=== PATIENT | female | born 1960 | race Caucasian/White ===

== ENCOUNTER 2022-03-15 09:55 | Outpatient (CLI) | payer BC, SELFPAY ==
--- NOTE | ~2022-03-15 | CT_ITS ---
EXAMINATION: CT lung screening DATE: 03/15/2022 10:20 INDICATION: screen TECHNIQUE: Computed tomography (CT) of the chest was performed without intravenous contrast. Addition al 3D reconstructions utilizing coronal maximum intensity projection (MIP) were performed. Automated exposure control and iterative reconstruction technique were employed. The dose-length product was 17 1.83 mGy-cm. COMPARISON: 03/23/2015 FINDINGS: Mild emphysema. New 9 mm nodule with lobular margins in the right lower lobe. 1.6 x 1.4 x 1.1 cm spic ulated nodule in the anterobasilar segment of the left lower lobe. Small calcified nodules in the rig ht upper lobe and calcified left hilar lymph nodes consistent with old granulomatous disease. No pneu monia, pulmonary edema or pleural effusion. Heart size is normal. Atherosclerotic coronary artery mary cific lesions and aortic valve calcification. No pericardial effusion. Thoracic aorta is normal calib er with no dissection. No pathologically enlarged thoracic lymphadenopathy. Small lucent lesion with thickened central vertical trabecula consistent with a hemangioma at T3. No other suspicious lytic or blastic bone lesions. IMPRESSION: 1. Lung-RADS category 4X: (Very suspicious, >15% chance of malignancy). PET-CT and/or tissue sampling depending on probably of malignancy and comorbidities. Although both nodules in the left and right l ower lobes are concerning for malignancy, the nodule more concerning for malignancy left lower lobe b ased upon both larger size and specific morphology is situated along side the bronchi and pulmonary v asculature and would not be a candidate for percutaneous CT-guided biopsy and would be best evaluated utilizing endobronchial ultrasound-guided biopsy (EBUS). Reviewed, dictated and finalized at location A. CATESSEN DEPARTMENT MANAGER IMPRESSION: 1. Lung-RADS category 4X: (Very suspicious, >15% chance of malignancy). PET-CT and/or tissue sampling depending on probably of malignancy and comorbidities. A lthough both nodules in the left and right lower lobes are concerning for malig marek, the nodule more concerning for malignancy left lower lobe based upon bot h larger size and specific morphology is situated along side the bronchi and pu lmonary vasculature and would not be a candidate for percutaneous CT-guided bio psy and would be best evaluated utilizing endobronchial ultrasound-guided biops y (EBUS).
== END 2022-03-15 09:56 | disposition home or self-care (01) ==
PROVIDERS: PCP Family Medicine; Visit Provider Physician Assistant
DX: Z12.2 Encounter for screening for malignant neoplasm of respiratory organs (principal); F17.210 Nicotine dependence, cigarettes, uncomplicated
CPT/HCPCS: 71271

== ENCOUNTER 2022-04-11 09:01 | Outpatient (CLI) | payer BC, SELFPAY ==
--- NOTE | ~2022-04-11 | PE_ITS ---
EXAMINATION: PET skull to mid thigh DATE: 04/11/2022 11:14 INDICATION: Solitary pulmonary nodule TECHNIQUE: Blood glucose level was 98 mg/dL. 9.596 mCi of 18-fluorodeoxyglucose (18-FDG) was administ ered i.v. Low dose computed tomography (CT) images were acquired from the base of the brain to the pr oximal thighs for attenuation correction and anatomic localization. Positron emission tomography (PET ) images were acquired in the same distribution beginning 49 minutes after injection. The dose-length product (DLP) was 813.84 mGy-cm. COMPARISON: CT, 03/15/2022;, 01/13/2021, 11/17/2010 FINDINGS: Head/neck: No abnormal FDG uptake is identified. Symmetric FDG uptake in the optic nerves, extraocula r muscles, oral cavity, and vocal cords without suspicious CT correlate is likely physiologic. Chest: Respiratory motion artifact slightly limits measurement of nodule size. There is a 9 mm nodule of the right lower lobe with abnormal FDG uptake and SUV max of six. There is a 1.5 cm nodule of the left lower lobe with abnormal FDG uptake and SUV max of 3.5. No additional pulmonary nodules are kip ntified. There is mild dependent atelectasis. The heart size is normal. No pathologically enlarged th oracic lymph nodes are identified no pleural effusion or pneumothorax. There is calcified atheroscler osis. Abdomen/pelvis/proximal thighs: Physiologic FDG activity is present in the bowel and urinary tract. N o abnormal FDG uptake is identified. The gallbladder is surgically absent. There is mild enlargement of the common bile duct and central intrahepatic ducts which is likely due to post cholecystectomy st ate. The liver, spleen, pancreas, and adrenal glands are normal. The kidneys are unremarkable. There is calcified atherosclerosis of the aorta and many of the other arteries. No pathologically enlarged abdominal or pelvic lymph nodes are identified. No free intraperitoneal gas or evidence of bowel obst ruction. Musculoskeletal: No abnormal FDG uptake is identified. There is moderate cervical and thoracic spondy losis and mild lumbar spondylosis. IMPRESSION: 1. Bilateral lower lobe nodule suspicious for primary bronchogenic carcinoma. Reviewed, dictated and finalized at location L. STRIAL DESIGN ENGINEER
[2022-04-11 09:47] LABS: Glucose Point of Care 98 mg/dl (65-105)
== END 2022-04-11 09:02 | disposition home or self-care (01) ==
PROVIDERS: PCP Family Medicine; Visit Provider Physician Assistant
DX: R91.1 Solitary pulmonary nodule (principal)
CPT/HCPCS: 78815; A9552

== ENCOUNTER 2022-04-11 16:36 | Outpatient (CLI) | payer BC, SELFPAY ==
--- NOTE | ~2022-04-11 | MM_ITS ---
EXAMINATION: MM screening cece BI w sonja HISTORY: Screening mammogram TECHNIQUE: Craniocaudal and mediolateral oblique 3-D tomosynthesis images were obtained and synthetic 2-D images were generated. CAD analysis was submitted and interpreted. COMPARISON: 02/20/2013 bilateral screening mammogram BREAST PARENCHYMAL COMPOSITION: There are scattered areas of fibroglandular density. FINDINGS: Biopsy marker in the upper outer right breast; history of prior benign right breast biopsy. Occasional bilateral benign calcifications. There is no evidence of suspicious mass, calcification, or architectural distortion to suggest malignancy in either breast. There has been no suspicious inte rval change. IMPRESSION: 1. No mammographic evidence of malignancy. 2. Recommend routine screening mammography in one year. BI-RADS Category 1: Negative Reviewed, dictated and finalized at location A. ERWARE BUFFING MACHINE OPERATOR
== END 2022-04-11 16:37 | disposition home or self-care (01) ==
PROVIDERS: PCP Family Medicine; Visit Provider Family Medicine
DX: Z12.31 Encounter for screening mammogram for malignant neoplasm of breast (principal)
CPT/HCPCS: 77063; 77067

== ENCOUNTER 2022-05-11 14:47 | Outpatient (CLI) | payer BC, SELFPAY ==
--- NOTE | ~2022-05-11 | DEXA_ITS ---
Bone Density Report Name: CECY SCHAEFER Age: 62 Sex: Female Ethnicity: White Date of : 1960 Indication: postmenopausal; screening for osteoporosis; height loss; prior fracture; Referring Provider: DOTTIE MANJARREZ Study: Bone densitometry was performed. Exam Date: May 11, 2022 Accession number: [id number] Bone Density: Region BMD T-score Z-score Classification AP Spine(L1-L4) 1.018 -0.3 1.3 Normal Femoral Neck (Left) 0.754 -0.9 0.5 Normal Total Hip (Left) 1.001 0.5 1.6 Normal World Health Organization criteria for BMD impression classify patients as: Normal (T-score at or above -1.0), Osteopenia (T-score between -1.0 and -2.5), or Osteoporosis (T-score at or below -2.5). 10-year Fracture Risk: FRAX not reported because: All T-scores for Spine Total, Hip Total, Femoral Neck at or above -1.0 Prior hip or vertebral fracture Clinical Information Provided by Patient: Have had a previous hip or vertebral fracture Has had a low trauma fracture Smokes Patient maximum height was 67 Menopause Age: 53 No regular weight bearing exercise Drinks caffeinated beverages Onset of menses at age 15 Number of children 1 Impression: The patient has normal bone mass. The patient has risk factors, including: smoking, previous fracture. Discussion: INCREASED RISK OF FRACTURE DUE TO HISTORY OF FRACTURE. The patient's previous fracture puts the patient at high risk of a future fracture. In untreated patients, the risk of osteoporotic fracture increases approximately two-fold for each 1.0 SD decrease in T-score. Low bone density is not the only risk factor for fracture; also consider factors such as patient's age, frailty or poor health, risk of falling, risk of injury, previous osteoporotic fracture, family history of osteoporosis, cigarette smoking, low body weight, etc. Not everyone with a low trauma fracture has osteoporosis; osteomalacia and other metabolic bone disorders should also be considered. Patients who have osteoporosis should be evaluated for specific diseases and conditions (secondary causes) that may cause or contribute to bone loss and fracture risk. National Osteoporosis Foundation (NOF) recommends pharmacologic intervention for patients with a prior hip or vertebral fracture regardless of BMD T-score. The patient should follow a healthful lifestyle (good nutrition with adequate calcium and vitamin D, and appropriate weight-bearing exercise). Follow-Up: Consider a repeat BMD and Vertebral Fracture Assessment (VFA) exam in 2 years or sooner if medically necessary, to reassess this patient's status. Reported by: [facility] on 05/11/2022 3:14:00 PM. Reviewed, dictated and finalized at location AGenesis ROBERTS
== END 2022-05-11 14:48 | disposition home or self-care (01) ==
PROVIDERS: PCP Family Medicine; Visit Provider Family Medicine
DX: Z78.0 Asymptomatic menopausal state (principal)
CPT/HCPCS: 77080

== ENCOUNTER 2022-05-29 14:59 | Outpatient (CLI) | payer BC, SELFPAY ==
[2022-05-29 15:53] LABS: Hemoglobin 9.6 g/dL (12.0-15.0); Mean Corpuscular HGB Conc 33.1 g/dl (32-36); Mean Corpuscular Hemoglobin 31.4 pg (26-34); Mean Corpuscular Volume 94.8 fl (80-100); Mean Platelet Volume 8.5 fl (7.4-10.4); Platelet Count Result 235 k/mm3 (150-375); Red Blood Count 3.06 M/mm3 (4.2-5.4); Red Cell Distribution Width 13.2 % (11.5-14.5)
[2022-05-29 16:09] LABS: Potassium 3.6 mmol/L (3.4-5.0)
[2022-05-29 16:16] LABS: Alanine Aminotransferase 22 U/L (6-35); Albumin Level 4.4 g/dL (3.5-5.1); Alkaline Phosphatase 135 U/L (38-126); Anion Gap 11 mmol/L (8-16); Aspartate Amino Transferase 28 U/L (14-36); Bilirubin,Total 0.5 mg/dL (0.2-1.3); Blood Urea Nitrogen 23 mg/dL (7-17); Calcium 9.2 mg/dL (8.4-10.2); Carbon Dioxide 26 mmol/L (22-30); Chloride 106 mmol/L (98-107); Estimated Glomerular Filt Rate 29; Glucose 99 mg/dL (65-110); Sodium 143 mmol/L (137-145)
== END 2022-05-29 15:00 | disposition home or self-care (01) ==
PROVIDERS: PCP Family Medicine; Visit Provider Nurse Practitioner Family
DX: K75.81 Nonalcoholic steatohepatitis (NASH) (principal)
CPT/HCPCS: 36415; 80053; 85027

== ENCOUNTER 2022-11-14 14:29 | Outpatient (CLI) | payer BC, SELFPAY ==
--- NOTE | ~2022-11-14 | XR_ITS ---
XR knee RT 3V 11/14/2022 14:58 INDICATION: Right knee pain PROCEDURE: 3 views right knee COMPARISON: No prior studies for comparison. FINDINGS: Fracture, dislocation or subluxation is not identified. No significant joint effusion. The soft tissues appear within normal limits. No foreign bodies are identified. IMPRESSION: 1: NO ACUTE BONE OR JOINT ABNORMALITY IDENTIFIED. Reviewed, dictated and finalized at location L.
[2022-11-14 15:21] LABS: Hematocrit 32.3 % (37.0-47.0); Hemoglobin 10.5 g/dL (12.0-15.0); Mean Corpuscular HGB Conc 32.5 g/dl (32-36); Mean Corpuscular Hemoglobin 32.2 pg (26-34); Mean Corpuscular Volume 99.1 fl (80-100); Mean Platelet Volume 8.8 fl (7.4-10.4); Platelet Count Result 229 k/mm3 (150-375); Red Blood Count 3.26 M/mm3 (4.2-5.4); Red Cell Distribution Width 13.4 % (11.5-14.5); White Blood Count 7.5 K/mm3 (4.5-10.0)
[2022-11-14 15:29] LABS: Alanine Aminotransferase 38 U/L (6-35); Albumin Level 4.6 g/dL (3.5-5.1); Alkaline Phosphatase 113 U/L (38-126); Anion Gap 10 mmol/L (8-16); Aspartate Amino Transferase 46 U/L (14-36); Bilirubin,Total 0.5 mg/dL (0.2-1.3); Blood Urea Nitrogen 20 mg/dL (7-17); Calcium 9.6 mg/dL (8.4-10.2); Carbon Dioxide 23 mmol/L (22-30); Chloride 106 mmol/L (98-107); Estimated Glomerular Filt Rate 56; Glucose 98 mg/dL (65-110); Potassium 4.7 mmol/L (3.4-5.0); Sodium 139 mmol/L (137-145)
== END 2022-11-14 14:30 | disposition home or self-care (01) ==
LOC: ANHLAB 14:30
PROVIDERS: PCP Family Medicine; Visit Provider Nurse Practitioner Family
DX: K75.81 Nonalcoholic steatohepatitis (NASH) (principal); M25.561 Pain in right knee
CPT/HCPCS: 36415; 73562; 80053; 85027

== ENCOUNTER 2023-01-01 12:48 | Outpatient (CLI) | payer BC, SELFPAY | END 2023-01-01 12:49 | disposition home or self-care (01) | LOC: ANHAUDASC 12:50 | PROVIDERS: PCP Family Medicine; Visit Provider Otolaryngology | DX: H90.3 Sensorineural hearing loss, bilateral (principal) | CPT/HCPCS: 92557; 92567 ==

== ENCOUNTER 2023-02-09 10:00 | Outpatient (RCR) | payer BC, SELFPAY | END 2023-04-08 23:59 | disposition home or self-care (01) | LOC: ANHAUDASC 10:00 | PROVIDERS: PCP Family Medicine; Visit Provider Family Medicine | DX: Z46.1 Encounter for fitting and adjustment of hearing aid (principal) | CPT/HCPCS: V5261 ==

== ENCOUNTER 2023-02-24 16:04 | Observation (INO) | payer BC, SELFPAY ==
[2023-02-24] VITALS (26 sets, daily range): BP systolic 88–116; BP diastolic 47–94; PULSE 78–93; RESP 14–22; TEMP 35.7–36.8; O2SAT 93–99; BMI 32.0
[2023-02-24 16:55] LABS: Basophils Percent Auto 0.4 % (0.2-1.2); Eosinophils Percent Auto 0.4 % (0-4.4); Hematocrit 32.9 % (37.0-47.0); Hemoglobin 10.6 g/dL (12.0-15.0); Immature Granulocyte Absolute 0.06 K/mm3 (0.00-0.031); Immature Granulocyte Percent A 0.6 % (0-0.5); Lymphocytes Absolute Auto 1.59 K/mm3 (0.9-3.2); Lymphocytes Percent Auto 15.6 % (18.3-44.2); Mean Corpuscular HGB Conc 32.2 g/dl (32-36); Mean Corpuscular Hemoglobin 31.6 pg (26-34); Mean Corpuscular Volume 98.2 fl (80-100); Monocytes Absolute Auto 0.7 K/mm3 (0.1-0.6); Monocytes Percent Auto 6.7 % (2.6-8.5); Neutrophils Absolute Auto 7.8 K/mm3 (1.3-6.7); Neutrophils Percent Auto 76.3 % (45.5-73.1); Platelet Count Result 220 k/mm3 (150-375); Red Blood Count 3.35 M/mm3 (4.2-5.4); Red Cell Distribution Width 14.1 % (11.5-14.5); White Blood Count 10.2 K/mm3 (4.5-10.0)
[2023-02-24 17:14] LABS: Alanine Aminotransferase 29 U/L (6-35); Albumin Level 4.2 g/dL (3.5-5.1); Alkaline Phosphatase 108 U/L (38-126); Anion Gap 15 mmol/L (8-16); Aspartate Amino Transferase 26 U/L (14-36); Bilirubin,Total 0.9 mg/dL (0.2-1.3); Blood Urea Nitrogen 26 mg/dL (7-17); Calcium 9.7 mg/dL (8.4-10.2); Carbon Dioxide 19 mmol/L (22-30); Chloride 104 mmol/L (98-107); Estimated CRCL calculation 27 ml/min; Estimated Glomerular Filt Rate 23; Glucose 156 mg/dL (65-110); Potassium 3.7 mmol/L (3.4-5.0); Sodium 138 mmol/L (137-145)
[2023-02-24 17:18] LABS: Appearance Urine Turbid (Clear); Bacteria Urine 4+ /hpf; Bilirubin Urine Negative (Negative); Blood Urine 3+ (Negative); Color Urine Dark Yellow (Yellow); Glucose Urine UA Trace mg/dL (Negative); Ketones Urine Trace mg/dL (Negative); Leukocyte Esterase Ur 3+ LEU/UL (Negative); Need Manual Microscopic Reviewed; Nitrate Urine Negative (Negative); Non Pathogenic Casts >20; Protein Urine 4+ mg/dL (Negative); RBC Urine 51-100 /hpf (0-2); Specific Grav Ur 1.021 (1.001-1.035); Squamous Epithelial Cell Urine Many /hpf (Few); WBC Urine >100 /hpf; pH Urine 5.5 (5.0-9.0)
[2023-02-24 17:25] LABS: Troponin I < 0.012 ng/mL (0.000-0.034)
[2023-02-24 17:33] LABS: Add Urine Microscopic? YES
--- NOTE | 2023-02-24 18:24 | PC.NURSE ---
Patient able to ambulate to the restroom with steady gate
--- NOTE | 2023-02-24 20:14 | ED.DIZZY ---
HPI - Dizziness General Chief Complaint: Dizziness Stated Complaint: dizzy Time Seen by Provider: 02/24/23 20:14 Source: patient Related Data Home Medications Medication Instructions Recorded Confirmed ascorbic acid (vitamin C) 1,000 mg 1 g PO DAILY 01/19/22 01/30/23 capsule cholecalciferol (vitamin D3) 25 25 mcg PO DAILY 01/19/22 01/30/23 mcg (1,000 unit) capsule cyclosporine 0.05 % eye drops in a 1 drp EACH EYE Q12H 01/19/22 01/30/23 dropperette (Restasis) lancets (Accu-Chek Fastclix Lancet 01/19/22 01/30/23 Drum) omega 9-jxa-nmx-fish oil 1,000 mg 1 cap PO DAILY 01/19/22 01/30/23 (120 mg-180 mg) capsule (Fish Oil) vitamin B complex (B 1 tablet PO DAILY 01/19/22 01/30/23 Complex-Vitamin B12 tablet) prednisone 10 mg tablet 10 mg PO DIRECTED 01/30/23 01/30/23 empagliflozin 10 mg tablet 10 mg PO DAILY 02/01/23 02/01/23 (Jardiance) Allergies Allergy/AdvReac Type Severity Reaction Status Date / Time penicillin G Allergy Mild rash Verified 02/24/23 20:48 PMFSH Past Medical History Medical History Acute cystitis without hematuria Aftercare following surgery Anemia Chronic obstructive pulmonary disease, unspecified Colon polyps Complete rotator cuff tear (01/14/15) Diabetes mellitus with neuropathy Dietary counseling and surveillance (03/01/16) Essential (primary) hypertension Family hx of colon cancer GERD (gastroesophageal reflux disease) Hereditary and idiopathic neuropathy, unspecified Hyperlipidemia Hyperlipidemia, unspecified HERNANDEZ (nonalcoholic steatohepatitis) Nicotine abuse Nicotine dependence, unspecified, uncomplicated SARAH (obstructive sleep apnea) Type 2 diabetes mellitus without complications Vitamin D deficiency, unspecified Surgical History Surgical History History of lung biopsy History of rotator cuff surgery Hx of appendectomy Hx of cholecystectomy Family History Family History Grandparent Carcinoma of colon, Onset Age: 85 Family history of lung cancer, Onset Age: 40 Father Malignant neoplasm of prostate, Onset Age: 76 Acute myocardial infarction, Onset Age: 76 Family history of chronic obstructive pulmonary disease Patient's father is Sibling Hypertension Mother Family history of malignant neoplasm of brain, Onset Age: 72 Social History Social History Social History: Single - Patient stopped smoking 6 months ago, she currently vapes. Smoking packs per day: 1 Smoking cigarettes per day: 20.0 Years smoked: 47 Smoking pack-years: 47.00 Smoking status: Current every day smoker Tobacco type: e-cigarettes/vaping Second hand tobacco smoke exposure: Yes Additional smoking assessment comments: Pt smokes vapes but smokes cigarettes one or two a month. Alcohol intake: never Substance use: never Substance use type: does not use Lack of Transportation: No Lack of Food: Never True Current Housing: I Have Housing Concerned About Future Housing: No Difficulty Paying Gas/Electric Bills: No Difficulty Paying for Meds: No Currently Unemployed: No Education: High School Diploma/GED Difficulty w/ Childcare or Family Care: No Living arrangements: alone Occupation/Education: occupation Additional occupation/education comments: [employer] Gender identity (if verbalized by the patient): Female Sexual Orientation (if Verbalized by the Patient): Straight or Heterosexual Course Vital Signs Vital signs: Vital Signs Temperature 36.8 C 02/24/23 16:15 Pulse Rate 93 02/24/23 16:15 Respiratory Rate 20 02/24/23 16:15 Blood Pressure 88/52 L 02/24/23 16:15 Pulse Oximetry 97 02/24/23 16:15 Oxygen Delivery Room Air 02/24/23 16:15 Temperature 36.8 C 02/24/23 16:15 Pulse Ra
[2023-02-24] MEDS: SODIUM CHLORIDE 0.9% IV 1,000 ML 999 ML IV CONT ×2 (20:47→23:35)
--- NOTE | 2023-02-24 21:39 | PM.IMHP ---
H&P: HPI History of Present Illness Date/Time: 02/24/23 21:39 Chief Complaint: DIZZINESS Narrative: THIS IS A 63-YEAR-OLD FEMALE WITH PAST MEDICAL HISTORY SIGNIFICANT FOR COPD/EMPHYSEMA, TYPE DIABETES MELLITUS, OBESITY, GERD. PATIENT PRESENTS TO THE EMERGENCY ROOM DUE TO DIZZINESS, LIGHTHEADEDNESS, HAS HAD DIARRHEA FOR THE LAST WEEK OR SO, HAS BEEN FEELING DIZZY BUT TODAY WAS THE WORST. DENIES ANY NAUSEA, VOMITING, ABDOMINAL PAIN HAS HAD SOME PAIN AND BURNING WITH URINATION. NO FEVERS RIGORS OR CHILLS. PRELIMINARY WORKUP WAS SIGNIFICANT FOR URINE ANALYSIS WITH NUMEROUS WBCS PRESENT, CHEMISTRY PANEL SHOWED A CREATININE OF 2.2. PATIENT IS BEEN ADMITTED FOR FURTHER EVALUATION MANAGEMENT AND TREATMENT. Review of Systems Review of Systems: DIZZINESS, PAIN OR BURNING WITH URINATION, DIARRHEA Constitutional: Constitutional: Denies chills, Denies fatigue, Denies fever(s), Denies malaise, Denies night sweats and Denies weakness Eyes: Eyes: Denies change in vision ENT: Denies dysphagia and Denies odynophagia Cardiovascular: Cardiovascular: Denies chest pain, Denies radiating jaw, neck or arm pain and Denies palpitations Respiratory: Respiratory: Denies chest congestion, Denies cough and Denies dyspnea Gastrointestinal: Gastrointestinal: Denies abdominal pain, Denies dyspepsia, Denies heartburn, Reports diarrhea, Denies nausea and Denies vomiting Genitourinary: Genitourinary: Reports dysuria Musculoskeletal: Musculoskeletal: Denies myalgias and Denies arthralgias Integumentary/Breasts: Skin/Breast: Denies rash Neurologic: Denies focal weakness and Denies Sensory deficit (Neuro) Psychiatric: Psychiatric: Reports no additional psychiatric complaints and Reports as per HPI Endocrine: Endocrine: Denies cold intolerance, Denies fatigue, Denies flushing, Denies heat intolerance, Denies polyphagia, Denies polydipsia and Denies palpitations Hematologic/Lymphatic: Hematologic/Lymphatic: Reports no additional hematologic/lymphatic complaints and Reports as per HPI Allergic/Immunologic: Allergic/Immunologic: Reports no additional allergic/immunologic complaints and Reports as per HPI PMF Past Medical History Medical History Acute cystitis without hematuria Aftercare following surgery Anemia Chronic obstructive pulmonary disease, unspecified Colon polyps Complete rotator cuff tear (01/14/15) Diabetes mellitus with neuropathy Dietary counseling and surveillance (03/01/16) Essential (primary) hypertension Family hx of colon cancer GERD (gastroesophageal reflux disease) Hereditary and idiopathic neuropathy, unspecified Hyperlipidemia Hyperlipidemia, unspecified HERNANDEZ (nonalcoholic steatohepatitis) Nicotine abuse Nicotine dependence, unspecified, uncomplicated SARAH (obstructive sleep apnea) Type 2 diabetes mellitus without complications Vitamin D deficiency, unspecified Surgical History Surgical History History of lung biopsy History of rotator cuff surgery Hx of appendectomy Hx of cholecystectomy Family History Family History Grandparent Carcinoma of colon, Onset Age: 85 Family history of lung cancer, Onset Age: 40 Father Malignant neoplasm of prostate, Onset Age: 76 Acute myocardial infarction, Onset Age: 76 Family history of chronic obstructive pulmonary disease Patient's father is Sibling Hypertension Mother Family history of malignant neoplasm of brain, Onset Age: 72 Social History Social History Social History: Single - Patient stopped smoking 6 months ago, she currently vapes. Smoking packs per day: 1 Smoking cigarettes per day: 20.0 Years smoked: 47 Smoking pack-years: 47.00 Smoking status: Current every day smoker Second hand tobacco smoke exposure: Yes Addition
--- NOTE | 2023-02-24 21:46 | PC.NURSE ---
Patient ambulated to the restroom with steady gate
[2023-02-24 22:03] LABS: Lactic Acid Reflex 1.5 mmol/L (0.7-2.0)
[2023-02-24 22:06] LABS: CRP 5.4 mg/dL (<1.0)
--- NOTE | 2023-02-24 22:41 | ADMGEN ---
This patient, Francisca Raines, was admitted to Medical Room 342-01. Patient/family oriented to hospital policies and general routines including ID bracelet, bed and alarms, visiting hours, pain management, procedures, bathroom and other care routines, personal items, smoking policy, room service/diet, and visiting hours. Information on how to activate the Rapid Response Team has been discussed. Patient/Family are encouraged to report perceived risks to care and to ask questions if they do not understand what they are told or what they should do.
[2023-02-25] MEDS: SODIUM CHLORIDE 0.9% IV 1,000 ML 200 ML IV CONT ×2 (00:53→09:13)
[2023-02-25 04:59] VITALS: BP 106/42; PULSE 83; RESP 20; TEMP 36.2; O2SAT 97
[2023-02-25 06:00] LABS: Anion Gap 11 mmol/L (8-16); Blood Urea Nitrogen 26 mg/dL (7-17); Calcium 8.7 mg/dL (8.4-10.2); Carbon Dioxide 18 mmol/L (22-30); Chloride 108 mmol/L (98-107); Estimated CRCL calculation 42 ml/min; Estimated Glomerular Filt Rate 38; Glucose 145 mg/dL (65-110); Potassium 3.6 mmol/L (3.4-5.0); Sodium 137 mmol/L (137-145)
[2023-02-25] MEDS: GABAPENTIN 300 MG CAPSULE PO ×2 (09:10→17:43)
[2023-02-25] MEDS: CHOLECALCIFEROL 1,000 UNITS TABLET 1000 UNITS PO (09:11)
[2023-02-25] MEDS: OMEGA 3 POLYUNSAT FATTY ACIDS 1 GM CAP PO (09:11)
[2023-02-25] MEDS: SOLIFENACIN 5 MG TABLET 10 MG PO (09:11)
[2023-02-25] MEDS: FERROUS GLUCONATE 324 MG TABLET PO ×2 (09:11→17:43)
[2023-02-25] MEDS: PANTOPRAZOLE 40 MG TABLET PO ×2 (09:11→20:47)
[2023-02-25] MEDS: DICYCLOMINE HCL 10 MG CAPSULE PO ×2 (09:12→20:47)
[2023-02-25] MEDS: cycloSPORINE 0.4 ML OPHTH SOLUTION 1 DROP EACH EYE ×2 (09:12→20:47)
[2023-02-25] MEDS: AZELASTINE HCL NASAL 0.1% 137 MCG/SPR 30 ML BTL 1 SPRAY NASAL ×2 (09:13→20:48)
[2023-02-25] MEDS: UMECLIDINIUM/VILANTEROL 62.5-25 MCG ELLIPTA 1 PUFF INHALATION (09:41)
[2023-02-25 13:20] VITALS: BP 111/53; PULSE 85; RESP 18; TEMP 36.3; O2SAT 96
--- NOTE | 2023-02-25 13:26 | PM.IMPN ---
Progress Note: A&P Assessment and Plan (1) DELLA (acute kidney injury): Code(s): N17.9 - Acute kidney failure, unspecified Status: Acute Assessment and Plan: patient present with BUN creatinine 26/2.2 IV fluids continued (2) Urinary tract infection: Code(s): N39.0 - Urinary tract infection, site not specified Status: Acute Assessment and Plan: UA with 3+ blood, 3+ leukocyte esterase, greater than 100 wbc's and 4+ bacteria Rocephin started. Urine cultures pending. Adjust antibiotics culture results (3) Engages in vaping: Code(s): Z72.89 - Other problems related to lifestyle Status: Acute Assessment and Plan: encouraged cessation (4) GERD (gastroesophageal reflux disease): Code(s): K21.9 - Gastro-esophageal reflux disease without esophagitis Status: Acute Assessment and Plan: PPI (5) Benign essential HTN: Code(s): I10 - Essential (primary) hypertension Status: Acute Assessment and Plan: Patient presented with hypotension. Continue to monitor blood pressures. Home antihypertensives on hold (6) Chronic obstructive pulmonary disease, unspecified: Qualifiers: COPD type: emphysema Emphysema type: centrilobular Qualified Code(s): J43.2 - Centrilobular emphysema Code(s): J44.9 - Chronic obstructive pulmonary disease, unspecified Status: Acute Assessment and Plan: continue home medication. Patient currently stable. Subjective Date/time seen: 02/25/23 13:26 Interval history: Patient doing well today. She states that a couple days ago she did have urinary frequency and burning but that improved. She did develop dizziness and that is what prompted her to go to the ED. Upon ED admission she was found to have a pretty significant UTI with hypotension. Patient is feeling better today. She denies any abdominal pain. Her urine is still a bit dirty but is not having any urinary symptoms. Dizziness has resolved. Waiting on urine cultures to return. Objective Data Vital Signs Vital Signs: Vital Signs - 24 hr 02/24/23 16:15 02/24/23 16:42 02/24/23 16:15 Temperature 98.2 F Pulse Rate 93 91 91 Respiratory Rate 20 17 20 Blood Pressure 88/52 L 95/68 L Pulse Oximetry 97 97 98 Oxygen Delivery Room Air 02/24/23 16:16 02/24/23 16:33 02/24/23 16:37 Temperature Pulse Rate 90 Respiratory Rate 17 Blood Pressure 96/55 L 95/68 L Pulse Oximetry 98 98 99 Oxygen Delivery 02/24/23 16:45 02/24/23 16:46 02/24/23 17:00 Temperature Pulse Rate 92 90 85 Respiratory Rate 14 20 20 Blood Pressure 96/76 L Pulse Oximetry 98 97 96 Oxygen Delivery 02/24/23 17:31 02/24/23 17:45 02/24/23 17:46 Temperature Pulse Rate 85 84 84 Respiratory Rate 21 H 20 20 Blood Pressure 106/53 L 98/53 L Pulse Oximetry 97 96 96 Oxygen Delivery 02/24/23 18:01 02/24/23 18:15 02/24/23 18:30 Temperature Pulse Rate 88 78 88 Respiratory Rate 22 H 15 18 Blood Pressure 113/94 H Pulse Oximetry 97 97 98 Oxygen Delivery 02/24/23 18:45 02/24/23 18:46 02/24/23 19:00 Temperature Pulse Rate 83 85 79 Respiratory Rate 17 16 15 Blood Pressure 104/49 L Pulse Oximetry 99 98 97 Oxygen Delivery 02/24/23 19:01 02/24/23 19:31 02/24/23 20:00 Temperature Pulse Rate 87 84 78 Respiratory Rate 20 19 18 Blood Pressure 100/52 L 108/60 Pulse Oximetry 96 93 97 Oxygen Delivery 02/24/23 20:01 02/24/23 20:15 02/24/23 20:35 Temperature Pulse Rate 82 79 86 Respiratory Rate 20 Blood Pressure 107/56 L 102/54 L 100/55 L Pulse Oximetry 94 Oxygen Delivery 02/24/23 20:36 02/24/23 22:19 02/24/23 22:30 Temperature 96.2 F L Pulse Rate 87 87 Respiratory Rate 18 Blood Pressure 94/54 L 100/54 L 116/47 L Pulse Oximetry 99 Oxygen Delivery 02/25/23 04:59 02/25/23 09:10 Temperature 97.2 F L Pulse Rate
[2023-02-25] MEDS: SODIUM CHLORIDE 0.9% IV 1,000 ML 100 ML IV CONT (17:43)
[2023-02-25 19:33] VITALS: BP 130/79; PULSE 73; RESP 16; TEMP 37.1; O2SAT 97
[2023-02-25 19:58] VITALS: PULSE 73; RESP 16; O2SAT 97
[2023-02-25] MEDS: ACETAMINOPHEN 325 MG TABLET 650 MG PO (20:47)
[2023-02-25] MEDS: GABAPENTIN 300 MG CAPSULE 600 MG PO (20:47)
[2023-02-26] MEDS: SODIUM CHLORIDE 0.9% IV 1,000 ML 100 ML IV CONT (03:38)
[2023-02-26 04:39] VITALS: BP 125/76; PULSE 76; RESP 18; TEMP 36.5; O2SAT 99
[2023-02-26 05:40] LABS: Hematocrit 27.4 % (37.0-47.0); Hemoglobin 8.6 g/dL (12.0-15.0); Mean Corpuscular HGB Conc 31.4 g/dl (32-36); Mean Corpuscular Hemoglobin 31.6 pg (26-34); Mean Corpuscular Volume 100.7 fl (80-100); Platelet Count Result 170 k/mm3 (150-375); Red Blood Count 2.72 M/mm3 (4.2-5.4); Red Cell Distribution Width 14.2 % (11.5-14.5); White Blood Count 5.3 K/mm3 (4.5-10.0)
[2023-02-26 06:01] LABS: Alanine Aminotransferase 22 U/L (6-35); Albumin Level 3.5 g/dL (3.5-5.1); Alkaline Phosphatase 98 U/L (38-126); Anion Gap 7 mmol/L (8-16); Aspartate Amino Transferase 20 U/L (14-36); Bilirubin,Total 0.3 mg/dL (0.2-1.3); Blood Urea Nitrogen 17 mg/dL (7-17); Calcium 9.5 mg/dL (8.4-10.2); Carbon Dioxide 22 mmol/L (22-30); Chloride 113 mmol/L (98-107); Estimated CRCL calculation 57 ml/min; Estimated Glomerular Filt Rate 56; Glucose 108 mg/dL (65-110); Potassium 4.1 mmol/L (3.4-5.0); Sodium 142 mmol/L (137-145)
[2023-02-26 08:25] VITALS: PULSE 81; RESP 16; RESP 18; O2SAT 94
[2023-02-26] MEDS: UMECLIDINIUM/VILANTEROL 62.5-25 MCG ELLIPTA 1 PUFF INHALATION (08:26)
[2023-02-26] MEDS: CHOLECALCIFEROL 1,000 UNITS TABLET 1000 UNITS PO (09:07)
[2023-02-26] MEDS: DICYCLOMINE HCL 10 MG CAPSULE PO (09:07)
[2023-02-26] MEDS: SOLIFENACIN 5 MG TABLET 10 MG PO (09:07)
[2023-02-26] MEDS: PANTOPRAZOLE 40 MG TABLET PO (09:07)
[2023-02-26] MEDS: OMEGA 3 POLYUNSAT FATTY ACIDS 1 GM CAP PO (09:07)
[2023-02-26] MEDS: GABAPENTIN 300 MG CAPSULE PO (09:07)
[2023-02-26] MEDS: cycloSPORINE 0.4 ML OPHTH SOLUTION 1 DROP EACH EYE (09:08)
[2023-02-26] MEDS: FERROUS GLUCONATE 324 MG TABLET PO (09:17)
--- NOTE | 2023-02-26 10:41 | PM.DS ---
DS: Admitting Diagnosis Discharge Date 02/26/23 Admitting Diagnosis UTI DS: Discharge Diagnosis Discharge Diagnosis (1) DELLA (acute kidney injury): Code(s): N17.9 - Acute kidney failure, unspecified Status: Acute (2) Urinary tract infection: Code(s): N39.0 - Urinary tract infection, site not specified Status: Acute (3) Engages in vaping: Code(s): Z72.89 - Other problems related to lifestyle Status: Acute (4) GERD (gastroesophageal reflux disease): Code(s): K21.9 - Gastro-esophageal reflux disease without esophagitis Status: Acute (5) Benign essential HTN: Code(s): I10 - Essential (primary) hypertension Status: Acute (6) Chronic obstructive pulmonary disease, unspecified: Qualifiers: COPD type: emphysema Emphysema type: centrilobular Qualified Code(s): J43.2 - Centrilobular emphysema Code(s): J44.9 - Chronic obstructive pulmonary disease, unspecified Status: Acute DS: Summary Hospital Course Hospital Course: This is a 63-year-old female with a past medical history of COPD, hyperlipidemia, hypertension and diabetes that presents to the ED on 02/24/2023 due to dizziness and lightheadedness. Patient also admits that the day prior she had some dysuria as well. She denied any nausea, vomiting, abdominal pain and fever. She was found to have a UA that was suspicious for infection as well as an elevated creatinine of 2.2 and hypotension. Patient was started on IV fluids and antibiotic therapy. Patient's creatinine improved with IV fluids on day of discharge BUN and creatinine were 17/1.0. Patient was given Rocephin while in the hospital. Patient's urine culture came back positive for Klebsiella pneumonia. Patient transition to cefdinir to be taken at home for completion of antibiotic therapy. Will call patient if sensitivities come back and antibiotic needs to be changed. Her labs and vital signs are stable and she is medically clear for discharge at this time. Time Spent with Patient Time attestation: Total time spent providing and/or coordinating discharge services: Exam Narrative: GENERAL: Comfortable, no acute distress HENMT: moist mucous membranes EYES: EOM intact b/l NECK: no lymphadenopathy RESPIRATORY: clear to auscultation CARDIO: RRR GI: soft, nontender, bowel sounds present SKIN: no rashes EXTREMITIES: no edema, redness or tenderness DS: Data Data Completed and Pending Labs on day of discharge: Labs from last 24 hours 02/26/23 05:10 WBC 5.3 RBC 2.72 L Hgb 8.6 L Hct 27.4 L MCV 100.7 H MCH 31.6 MCHC 31.4 L RDW 14.2 Plt Count 170 MPV 9.0 Sodium 142 Potassium 4.1 Chloride 113 H Carbon Dioxide 22 Anion Gap 7 L BUN 17 Creatinine 1.00 Estim Creat Clear Calc 57 Estimated GFR 56 L Glucose 108 Calcium 9.5 Total Bilirubin 0.3 AST 20 ALT 22 Alkaline Phosphatase 98 Total Protein 6.0 L Albumin 3.5 Preliminary micro results at discharge 02/24/23 16:46 Urine Culture - Preliminary Urine Clean Catch Klebsiella pneumoniae 02/24/23 21:43 Blood Culture - Preliminary Blood 02/24/23 21:43 Blood Culture - Preliminary Blood Discharge Plan Discharge Attending physician on discharge: Davon Agarwal Discharging Clinician: Kaylin Anderson Patient Disposition: Home, Self-Care Activity: unlimited Diet: diabetic Discharge Instructions: Medications: cefdinir 300 mg p.o. twice daily. Start antibiotics on 02/27/23 in the A.M. Take all medications as prescribed even if feeling better Eat well balanced meals and stay hydrated Keep active to remain strong Avoid use of diapers or pads Good aury Care every 2 hours Frequent toileting every 2 hours Trend urine output If you should experience any chest pain, shortness of breath, temps >100.4 or any other worrisome symptoms please follow up with your PCP come back to the hospital Follow up with your
[2023-02-26 14:00] VITALS: BP 124/91; PULSE 75; RESP 18; TEMP 35.9; O2SAT 94
== END 2023-02-26 15:00 | disposition home or self-care (01) ==
LOC: ANHED 22:06 → ANH3MED 22:25
PROVIDERS: Internal Medicine Critical Care Medicine; Admitting Provider Internal Medicine; Emergency Provider Emergency Medicine; PCP Family Medicine; Visit Provider Internal Medicine
DX: N17.9 Acute kidney failure, unspecified (principal); N39.0 Urinary tract infection, site not specified; B96.1 Klebsiella pneumoniae [K. pneumoniae] as the cause of diseases classified elsewhere; K21.9 Gastro-esophageal reflux disease without esophagitis; K75.81 Nonalcoholic steatohepatitis (NASH); I10 Essential (primary) hypertension; R42 Dizziness and giddiness; D64.9 Anemia, unspecified; E11.40 Type 2 diabetes mellitus with diabetic neuropathy, unspecified; E78.5 Hyperlipidemia, unspecified; J43.2 Centrilobular emphysema; J44.9 Chronic obstructive pulmonary disease, unspecified; E55.9 Vitamin D deficiency, unspecified; Z68.32 Body mass index [BMI] 32.0-32.9, adult; G47.33 Obstructive sleep apnea (adult) (pediatric); Z99.89 Dependence on other enabling machines and devices; F17.290 Nicotine dependence, other tobacco product, uncomplicated; Z79.51 Long term (current) use of inhaled steroids; Z79.84 Long term (current) use of oral hypoglycemic drugs; Z79.899 Other long term (current) drug therapy
CPT/HCPCS: 36415; 80048; 80053; 81001; 83605; 84484; 85025; 85027; 86140; 87040; 87077; 87086; 87186; 94640; 96361; 96365; 96376; 99285; A9270; G0378; J0696; J7030

== ENCOUNTER 2023-03-14 12:51 | Outpatient (CLI) | payer BC, SELFPAY ==
[2023-03-14 13:55] VITALS: PULSE 69; O2SAT 94
[2023-03-14 14:05] VITALS: PULSE 102; O2SAT 87
[2023-03-14 14:10] VITALS: PULSE 94; O2SAT 93
[2023-03-14 14:20] VITALS: PULSE 72; O2SAT 93
--- NOTE | 2023-03-14 15:06 | HOMEO2EVAL ---
Evaluation was performed at [facility] Home Oxygen Evaluation RC: Home Oxygen (O2) Evaluation Start: 03/14/23 15:02 Freq: Status: Active Protocol: RPE Activity Type Activity Date Activity User E-sign Co-sign Detail Recorded Client Recorded Date Recorded By Document 03/14/23 13:55 PK RT_012 03/14/23 15:05 PK Document 03/14/23 14:05 PK RT_012 03/14/23 15:05 PK Document 03/14/23 14:10 [facility] RT_012 03/14/23 15:05 [facility] Document 03/14/23 14:20 [facility] RT_012 03/14/23 15:05 PK 03/14/23 03/14/23 03/14/23 13:55 14:05 14:10 Home O2 Evaluation [Oxygen] -Test Phase Resting Exercise Exercise -Oxygen Delivery Room Air Room Air Nasal Cannula -Oxygen Flow Rate (L/min) 1 [Pulse Oximetry] -Pulse Oximetry (90-100 %) 94 87 L 93 [Pulse Rate] -Pulse Rate (60-100 beats/min) 69 102 H 94 [Charges] -Evaluation Charges O2 Evaluation by Pulmonary 03/14/23 14:20 Home O2 Evaluation [Oxygen] -Test Phase Resting -Oxygen Delivery Room Air -Oxygen Flow Rate (L/min) [Pulse Oximetry] -Pulse Oximetry (90-100 %) 93 [Pulse Rate] -Pulse Rate (60-100 beats/min) 72 [Charges] -Evaluation Charges
--- NOTE | 2023-03-15 12:57 | WPDPFTINT ---
PFT Procedure Performed PFT Procedure Performed Spirometry with Pre/Post Bronchodilator Plethysmography (Lung Vol) Diffusing Cap (DLCO) Flow Vol Loop PFT Interpretation This is a pulmonary function test with pre and post-bronchodilator spirometry, plethysmography and diffusing capacity. The test was performed and results interpreted in accordance with the 2019 and 2005 ATS/ERS Task Force guidelines respectively using the Global Lung Function Initiative-2012 reference equations. Patient demonstrated good effort and cooperation. Reproducibility criteria were met. The quality of the pre bronchodilator spirometry maneuver was Grade A and post bronchodilator spirometry maneuver was Grade A. Findings: Spirometry: The contour the inspiratory and expiratory flow tracing are normal. The pre bronchodilator FVC is 2.29 L, 58% predicted. The pre bronchodilator FEV1 is 1.78 L, 58% predicted. The pre bronchodilator FEV1: FVC ratio 78%. The post bronchodilator FVC is 2.19 L, representing a 4% decrease. The post bronchodilator FEV1 is 1.73, representing a 3% decrease. The post bronchodilator FEV1: FVC ratio 79%. Plethysmography: The total lung capacity is 3.29 L, 53% predicted. The functional residual capacity is 1.73 L, 54% predicted. The residual volume is 1.00 L, 48% predicted. Diffusing capacity: The diffusing capacity unadjusted for hemoglobin and carboxyhemoglobin is 9.9, 38% predicted. The diffusing capacity adjusted for alveolar volume is 4.14, 95% predicted. Impression: There is a moderately severe restrictive ventilatory abnormality. The spirometry is normal without evidence of an obstructive abnormality. There is no significant improvement after inhaling a single dose of albuterol. The diffusing capacity unadjusted for hemoglobin and carboxyhemoglobin is severely decreased and normalizes when adjusted for alveolar volume. There are no prior studies for comparison
--- NOTE | 2023-03-15 13:03 | WPDPFTINT ---
PFT Procedure Performed PFT Procedure Performed Spirometry with Pre/Post Bronchodilator Plethysmography (Lung Vol) Diffusing Cap (DLCO) Flow Vol Loop PFT Interpretation This is a pulmonary function test with pre and post-bronchodilator spirometry, plethysmography and diffusing capacity. The test was performed and results interpreted in accordance with the 2019 and 2005 ATS/ERS Task Force guidelines respectively using the Global Lung Function Initiative-2012 reference equations. Patient demonstrated good effort and cooperation. Reproducibility criteria were met. The quality of the pre bronchodilator spirometry maneuver was Grade A and post bronchodilator spirometry maneuver was Grade A. Findings: Spirometry: The contour the inspiratory and expiratory flow tracing are normal. The FVC is 3.39 L, 108% predicted. The pre bronchodilator FEV1 is 2.60 L, 104% predicted. The pre bronchodilator FEV1: FVC ratio 77%. The post bronchodilator FVC is 3.41 L, representing 1% increase. The post bronchodilator FEV1 is 2.70 L, representing a 4% increase. The post bronchodilator FEV1: FVC ratio 79%. Plethysmography: The total lung capacity is 5.05 L, 103% predicted. The functional residual capacity is 2.85 L, 103% predicted. The residual volume is 1.67 L, 89% predicted. Diffusing capacity: The diffusing capacity unadjusted for hemoglobin and carboxyhemoglobin is 11.1, 51% predicted. The diffusing capacity adjusted for alveolar volume is 2.43, 54% predicted. Impression: The spirometry is normal without evidence of an obstructive abnormality. There is no significant improvement after inhaling a single dose of albuterol. The lung volumes are normal. The diffusing capacity unadjusted for hemoglobin and carboxyhemoglobin is moderately decreased and remains moderately reduced when adjusted for alveolar volume. There are no prior studies for comparison
== END 2023-03-14 12:52 | disposition home or self-care (01) ==
LOC: ANHPFT 12:52
PROVIDERS: PCP Family Medicine; Visit Provider Physician Assistant
DX: J44.9 Chronic obstructive pulmonary disease, unspecified (principal); J70.0 Acute pulmonary manifestations due to radiation
CPT/HCPCS: 94060; 94618; 94726; 94729

== ENCOUNTER 2023-03-16 08:38 | Outpatient (CLI) | payer BC, SELFPAY ==
--- NOTE | ~2023-03-16 | CT_ITS ---
EXAMINATION: CTA chest PE protocol DATE: 03/16/2023 10:00 INDICATION: Shortness of breath. History of lung cancer. TECHNIQUE: Computed tomography angiography (CTA) of the chest was performed with 100 mL Omnipaque-350 intravenous contrast timed to evaluate the pulmonary arteries. Coronal maximum intensity projection 3D-reconstructions were created by the technologist. Automated exposure control and iterative reconst ruction technique were employed. Exam dose: 911.02 mGy-cm total exam DLP. COMPARISON: April 11, 2022 PET/CT scan March 15, 2022 CT lung screening FINDINGS: There is diagnostic contrast enhancement of the pulmonary arteries and no evidence of pulmo nary embolism. Cardiomegaly. Mitral annulus calcification. Aortic valve calcification. There is aortic and great ves celestina and coronary artery calcification. No thoracic aortic aneurysm or dissection. No hilar or mediastinal mass lesion or lymphadenopathy. Prominent patchy consolidating infiltrates are noted in the lingula and both lower lobes. Differentia l diagnosis includes pulmonary edema, pneumonia, aspiration. The patchy consolidation in the lower lobes largely engulf and obscure the previously reported bilate ral lower lobe pulmonary masses suspicious for bilateral lower lobe bronchogenic carcinoma. Status post cholecystectomy. Diffuse idiopathic skeletal hyperostosis of the thoracic spine. Prominent degenerative disc disease o f the lower cervical spine. No suspicious osteolytic or osteoblastic lesions are noted. IMPRESSION: Prominent patchy consolidation of the lingula and both lower lobes, which may be due to pulmonary edema, pneumonia and/or aspiration Bilateral lower lobe suspected bronchogenic carcinoma is not optimally evaluated due to the extensive bilateral lower lobe consolidation. Cardiomegaly Thoracic and abdominal aortic, great vessel and coronary artery calcification Status post cholecystectomy Reviewed, dictated and finalized at [facility]. Reviewed, dictated and finalized at location B. [facility] [facility]OUNT[facility] IMPRESSION: Prominent patchy consolidation of the lingula and both lower lobes , which may be due to pulmonary edema, pneumonia and/or aspiration Bilateral lower lobe suspected bronchogenic carcinoma is not optimally evaluate d due to the extensive bilateral lower lobe consolidation. Cardiomegaly Thoracic and abdominal aortic, great vessel and coronary artery calcification Status post cholecystectomy
== END 2023-03-16 08:39 | disposition home or self-care (01) ==
PROVIDERS: PCP Family Medicine; Visit Provider Physician Assistant
DX: R06.02 Shortness of breath (principal); J44.9 Chronic obstructive pulmonary disease, unspecified; J70.0 Acute pulmonary manifestations due to radiation; Z90.49 Acquired absence of other specified parts of digestive tract; I51.7 Cardiomegaly
CPT/HCPCS: 71275; Q9967

== ENCOUNTER 2023-04-26 17:30 | Outpatient (CLI) | payer BC, SELFPAY ==
--- NOTE | ~2023-04-26 | XR_ITS ---
EXAMINATION: XR hip RT 2V w AP pelvis DATE: 04/26/2023 17:44 INDICATION: Right hip pain. TECHNIQUE: An anteroposterior view of the pelvis and 2 views of right hip were obtained. COMPARISON: None. FINDINGS: Bone alignment is normal. No acute fracture. There is an old healed fracture deformity of p roximal right femur. There is moderate right hip osteoarthritis and mild left hip osteoarthritis. IMPRESSION: 1. Moderate right hip osteoarthritis and mild left hip osteoarthritis. Reviewed, dictated and finalized at location E. ET CUTTER
== END 2023-04-26 17:31 | disposition home or self-care (01) ==
LOC: ANHIMG 17:32
PROVIDERS: PCP Family Medicine; Visit Provider Family Medicine
DX: M25.559 Pain in unspecified hip (principal); M16.0 Bilateral primary osteoarthritis of hip
CPT/HCPCS: 73502

== ENCOUNTER 2023-05-14 11:43 | Outpatient (CLI) | payer BC, SELFPAY ==
[2023-05-14 12:22] LABS: Hematocrit 34.8 % (37.0-47.0); Mean Corpuscular HGB Conc 31.6 g/dl (32-36); Mean Corpuscular Hemoglobin 31.9 pg (26-34); Mean Corpuscular Volume 100.9 fl (80-100); Mean Platelet Volume 9.7 fl (7.4-10.4); Platelet Count Result 211 k/mm3 (150-375); Red Blood Count 3.45 M/mm3 (4.2-5.4); White Blood Count 10.2 K/mm3 (4.5-10.0)
[2023-05-14 12:36] LABS: Prothrombin Time 13.4 Seconds (11.1-14.7)
[2023-05-14 12:38] LABS: Alanine Aminotransferase 24 U/L (6-35); Albumin Level 4.2 g/dL (3.5-5.1); Alkaline Phosphatase 86 U/L (38-126); Anion Gap 9 mmol/L (8-16); Aspartate Amino Transferase 23 U/L (14-36); Bilirubin,Total 0.9 mg/dL (0.2-1.3); Blood Urea Nitrogen 12 mg/dL (7-17); Calcium 9.3 mg/dL (8.4-10.2); Carbon Dioxide 25 mmol/L (22-30); Chloride 105 mmol/L (98-107); Estimated Glomerular Filt Rate > 60; Glucose 193 mg/dL (65-110); Potassium 3.6 mmol/L (3.4-5.0); Sodium 139 mmol/L (137-145)
== END 2023-05-14 11:44 | disposition home or self-care (01) ==
LOC: ANHLAB 11:46
PROVIDERS: PCP Family Medicine; Visit Provider Nurse Practitioner
DX: K75.81 Nonalcoholic steatohepatitis (NASH) (principal)
CPT/HCPCS: 36415; 80053; 85027; 85610

== ENCOUNTER 2023-05-16 13:13 | Outpatient (CLI) | payer BC, SELFPAY ==
--- NOTE | ~2023-05-16 | CT_ITS ---
EXAMINATION: CT LE RT w con DATE: 05/16/2023 14:01 INDICATION: Right hip pain TECHNIQUE: High resolution computed tomography (CT) of the right hip and femur was performed without intravenous contrast. Additional sagittal and coronal reconstructions were performed. Automated expos ure control and iterative reconstruction technique were employed. The dose-length product was 553.86 mGy-cm. COMPARISON: None FINDINGS: There is a lucent screw tract extending across the right femoral head and neck likely related to sinc e removed internal fixation. There is some heterotopic ossification arising from the anterolateral ma rgin of the intratrochanteric/subtrochanteric right femur. Alignment appears essentially anatomic. Po lyarticular osteoarthritis, mild to moderate severity at the right sacroiliac and hip joints and mild at the patellofemoral compartment of the right knee. Joint spaces appear normal at the medial and la teral compartments of the right knee all assessment for joint space narrowing is limited on nonweight bearing imaging. Physiologic amount fluid in the right hip and knee joints. Bladder, anteverted uteru s and right adnexa and visualized portions of bowels are unremarkable. No free fluid in the pelvis. N o pathologically enlarged right pelvic or inguinal lymphadenopathy. Atherosclerotic calcification of mild stenosis at the right common femoral artery. IMPRESSION: 1. Heterotopic ossification at the anterolateral trochanteric and subtrochanteric region of the proxi mal right femur likely related to prior surgery with residual likely fixation screw tract at the righ t femoral head and neck. Correlate with surgical history. No acute osseous abnormality. 2. Mild to moderate right hip and sacroiliac osteoarthritis. Reviewed, dictated and finalized at location B. IMPRESSION: 1. Heterotopic ossification at the anterolateral trochanteric and subtrochanter ic region of the proximal right femur likely related to prior surgery with resi dual likely fixation screw tract at the right femoral head and neck. Correlate with surgical history. No acute osseous abnormality. 2. Mild to moderate right hip and sacroiliac osteoarthritis.
[2023-05-16 13:46] LABS: Estimated Glomerular Filt Rate 56
== END 2023-05-16 13:14 ==
LOC: MICIMG 13:14
PROVIDERS: PCP Family Medicine; Visit Provider Nurse Practitioner Family
DX: M16.11 Unilateral primary osteoarthritis, right hip (principal); M46.1 Sacroiliitis, not elsewhere classified
CPT/HCPCS: 36415; 73701; Q9967

== ENCOUNTER 2023-05-18 11:33 | Outpatient (CLI) | payer BC, SELFPAY ==
--- NOTE | ~2023-05-18 | XR_ITS ---
EXAMINATION: XR lg joint inject/asp w image DATE: 05/18/2023 12:36 INDICATION: Right hip arthritis. TECHNIQUE: A time-out was performed to verify the patient's name, date of , and procedure to b e performed. The procedure including the risks, benefits, and alternatives was discussed with the pat ient. Risks discussed included bleeding and infection. The patient understood the risks and agreed to proceed. The skin overlying the right hip joint was prepped and draped in usual sterile fashion. A nesthetic was administered with 1% lidocaine subcutaneously. A 22 G needle was advanced under fluoro scopic guidance into the joint. Subsequently, injectate consisting of 2 mL 0.5% bupivacaine and 1 mL 80 mg/mL Depo-Medrol was instilled. The needle was removed and the entry site was cleaned and dress ed. There were no immediate complications. Fluoroscopy exposure time was 0.1 minutes. The total numb er of images was 1. FINDINGS: Real-time fluoroscopy demonstrates the needle in the right hip joint. Patient's pain prior to procedure:5/10. Patient's pain following the procedure: 2/. IMPRESSION: 1. Fluoroscopy guided right hip joint injection of local anesthetic and steroid with decrease in the patient's presenting pain. Reviewed, dictated and finalized at location A.
== END 2023-05-18 11:34 | disposition home or self-care (01) ==
PROVIDERS: PCP Family Medicine; Visit Provider Nurse Practitioner Family
DX: M16.11 Unilateral primary osteoarthritis, right hip (principal)
CPT/HCPCS: 20610; 77002; J1040

== ENCOUNTER 2023-06-01 09:01 | Outpatient (CLI) | payer BC, SELFPAY ==
--- NOTE | ~2023-06-01 | US_ITS ---
US abdomen limited INDICATION: HERNANDEZ PROCEDURE: Realtime right upper abdominal ultrasound. COMPARISON: No prior studies for comparison. FINDINGS: The pancreas is normal without focal mass or pancreatic ductal dilation. Liver echotexture is increased, consistent with fatty infiltration. There is normal directional flow in the portal ve in. The gallbladder is surgically absent. Common bile duct measures 4.6 mm. No sonographic Jacome's sig n. IMPRESSION: 1: Fatty infiltration of the liver. Reviewed, dictated and finalized at location B.
== END 2023-06-01 09:02 | disposition home or self-care (01) ==
PROVIDERS: PCP Family Medicine; Visit Provider Nurse Practitioner Family
DX: K76.0 Fatty (change of) liver, not elsewhere classified (principal)
CPT/HCPCS: 76705

== ENCOUNTER 2023-07-02 16:00 | Observation (INO) | payer BC, SELFPAY ==
[2023-07-02] VITALS (8 sets, daily range): BP systolic 101–140; BP diastolic 43–54; PULSE 63–71; RESP 13–18; TEMP 36.6; O2SAT 93–100; BMI 33.3
--- NOTE | ~2023-07-02 | CT_ITS ---
EXAMINATION: CT abdomen pelvis wo con DATE: 07/02/2023 18:46 INDICATION: abd pain, diarrhea, DELLA TECHNIQUE: Computed tomography (CT) of the abdomen and pelvis was performed without intravenous contr ast. Automated exposure control and iterative reconstruction technique were employed. The dose-length product was 1229.48 mGy-cm. COMPARISON: CTPA 03/16/2023; PET/CT 04/11/2022. FINDINGS: Lower thorax: Chronic bilateral lower lobe consolidation. Mitral and coronary artery calcification. Liver: Normal. Biliary/Gallbladder: Gallbladder is absent. No bile duct dilation. Pancreas: No mass or duct dilation. Spleen: Normal. Adrenals:No mass. Kidneys: No suspicious mass, obstructing stone, or hydronephrosis. GI tract: No small or large bowel dilation. Normal appendix. Mesentery/Peritoneum: No ascites, mass, or free air. Retroperitoneum: No mass. Atherosclerotic abdominal aortic and/or arterial calcifications. Pelvis: Pelvic organs are within normal limits. Soft Tissues: Soft tissues and body wall unremarkable. Bones: No acute osseous finding. IMPRESSION: No acute abdominal pelvic process detected. Reviewed, dictated and finalized at location K.
--- NOTE | ~2023-07-02 | CT_ITS ---
EXAMINATION: CT brain wo con DATE: 07/02/2023 16:29 INDICATION: Lightheadedness. TECHNIQUE: Computed tomography (CT) of the head was performed without intravenous contrast. The mA wa s adjusted according to patient size. Iterative reconstruction technique was employed. The dose-lengt h product was 681.00 mGy-cm. COMPARISON: None FINDINGS: There is no intracranial hemorrhage, acute infarction, or abnormal intracranial mass lesion . The ventricles are normal in size. There are likely changes of ocular lens replacement surgeries. T here is mild mucosal thickening in the ethmoid sinuses. The mastoid air cells are normal. IMPRESSION: 1. Normal brain. Reviewed, dictated and finalized at location A. IMPRESSION: 1. Normal brain.
--- NOTE | 2023-07-02 16:11 | ED.RECABL ---
HPI - Recheck/Abnormal Lab/Rx General Chief Complaint: Recheck/Abnormal Lab/Rx <BONG Castañeda Last Filed: 07/02/23 16:21> Stated Complaint: low BP and low pulse today <BONG Castañeda Last Filed: 07/02/23 16:21> Time Seen by Provider: 07/02/23 16:12 <BONG Castañeda Last Filed: 07/02/23 16:21> Focused HPI: Patient is a 63 y/o female who presents to the ED with c/o dizziness and hypotension. Patient states she began having brief episodes of dizziness yesterday with movement/position changes. Today she has been monitoring her BP and notes it has been low in the 70-90s, the lowest being 76/49. Patient has hx of HTN and is on Lisinopril/HCTZ and metoprolol. She did not take these today. She does feel lightheaded with position changes. Notes having diarrhea for the past 3 weeks, otherwise states she has been in her normal state of health. Denies focal weakness, vision changes, syncope, CP, SOB, N/V, cough, cold sx's, fevers, rectal bleeding, melena. Patient notes she has been drinking lots of fluid today, but has not drank enough the last few days. Has been hospitalized for dehydration before. States she has not urinated since waking up this morning. GENERAL: Well-appearing, obese with BMI of 32.9, and in no acute distress. HEAD: Normocephalic, atraumatic. CHEST: Clear to auscultation. ?No respiratory distress. HEART: Regular rate and rhythm.? NEURO: ?Alert and oriented x3. No focal deficits. Patient screened in triage and initial orders placed.? ?Additional care and disposition to be based upon?diagnostic testing and treatment. <BONG Castañeda Last Filed: 07/02/23 16:21> Source: patient <BONG Castañeda Last Filed: 07/02/23 16:21> Mode of arrival: ambulatory <BONG Castañeda Last Filed: 07/02/23 16:21> Limitations: no limitations <Lavern Cullen PA-C - Last Filed: 07/02/23 16:21> Related Data Home Medications: Home Medications Medication Instructions Recorded Confirmed cyclosporine 0.05 % eye drops in a 1 drp EACH EYE Q12H 01/19/22 07/02/23 dropperette (Restasis) lancets (Accu-Chek Fastclix Lancet 01/19/22 07/02/23 Drum) azelastine 137 mcg (0.1 %) nasal 1 spray intranasal BID PRN stuffy 02/24/23 07/02/23 spray aerosol nose gabapentin 300 mg capsule 600 mg PO HS 02/24/23 07/02/23 atorvastatin 80 mg tablet 80 mg PO DAILY 07/02/23 07/02/23 gabapentin 300 mg capsule 300 mg PO BID 07/02/23 07/02/23 <Lavern Cullen PA-C - Last Filed: 07/02/23 16:21> Allergies/Adverse Reactions: Allergies Allergy/AdvReac Type Severity Reaction Status Date / Time penicillin G Allergy Mild rash Verified 06/11/23 14:10 <Lavern Cullen PA-C - Last Filed: 07/02/23 16:21> Review of Systems Review of Systems: CONSTITUTIONAL: Denies fever GASTROINTESTINAL: Reports abdominal pain, and diarrhea. GENITOURINARY: Denies dysuria or hematuria. 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
[2023-07-02 16:27] LABS: Basophils Absolute Auto 0.1 K/mm3 (0.0-0.1); Eosinophils Absolute Auto 0.2 K/mm3 (0-0.3); Eosinophils Percent Auto 2.2 % (0-4.4); Hematocrit 35.1 % (37.0-47.0); Hemoglobin 11.1 g/dL (12.0-15.0); Immature Granulocyte Absolute 0.04 K/mm3 (0.00-0.031); Immature Granulocyte Percent A 0.5 % (0-0.5); Lymphocytes Absolute Auto 2.54 K/mm3 (0.9-3.2); Lymphocytes Percent Auto 31.5 % (18.3-44.2); Mean Corpuscular HGB Conc 31.6 g/dl (32-36); Mean Corpuscular Hemoglobin 31.8 pg (26-34); Mean Corpuscular Volume 100.6 fl (80-100); Mean Platelet Volume 9.3 fl (7.4-10.4); Monocytes Absolute Auto 0.5 K/mm3 (0.1-0.6); Monocytes Percent Auto 6.7 % (2.6-8.5); Neutrophils Absolute Auto 4.7 K/mm3 (1.3-6.7); Neutrophils Percent Auto 58.1 % (45.5-73.1); Platelet Count Result 285 k/mm3 (150-375); Red Blood Count 3.49 M/mm3 (4.2-5.4); Red Cell Distribution Width 14.2 % (11.5-14.5); White Blood Count 8.1 K/mm3 (4.5-10.0)
[2023-07-02 16:37] LABS: Alanine Aminotransferase 19 U/L (6-35); Albumin Level 4.6 g/dL (3.5-5.1); Alkaline Phosphatase 101 U/L (38-126); Anion Gap 16 mmol/L (4-12); Aspartate Amino Transferase 27 U/L (14-36); Bilirubin,Total 0.8 mg/dL (0.2-1.3); Blood Urea Nitrogen 21 mg/dL (7-17); Calcium 9.4 mg/dL (8.4-10.2); Carbon Dioxide 18 mmol/L (22-30); Chloride 102 mmol/L (98-107); Creatine Kinase 74 U/L (30-135); Estimated CRCL calculation 18 ml/min; Estimated Glomerular Filt Rate 14; Glucose 112 mg/dL (65-110); Potassium 3.7 mmol/L (3.4-5.0); Sodium 136 mmol/L (137-145)
[2023-07-02 16:42] LABS: Lactic Acid Reflex 4.8 mmol/L (0.7-2.0)
[2023-07-02 16:48] LABS: Troponin I < 0.012 ng/mL (0.000-0.034)
--- NOTE | 2023-07-02 16:59 | ECG_ITS ---
SEE SCANNED COPY FOR CONFIRMED REPORT. MTDD
[2023-07-02] MEDS: MAGNESIUM SULF 2 GM/WATER 50ML 2 GM/50 ML BAG IVPB (17:03)
[2023-07-02] MEDS: SODIUM CHLORIDE 0.9% IV 1,000 ML 999 ML IV CONT ×3 (17:03→18:42)
--- NOTE | 2023-07-02 19:04 | PC.NURSE ---
pt is not able to urinate.
[2023-07-02 19:24] LABS: Reflex Lactic Acid Yes or No Add Lactic
[2023-07-02 21:04] LABS: Lactic Acid 2.5 mmol/L (0.7-2.0)
[2023-07-02 21:12] LABS: Appearance Urine Cloudy (Clear); Bacteria Urine None Seen /hpf; Bilirubin Urine Negative (Negative); Blood Urine 1+ (Negative); Color Urine Yellow (Yellow); Glucose Urine UA Negative (Negative); Ketones Urine Trace mg/dL (Negative); Leukocyte Esterase Ur 2+ LEU/UL (Negative); Mucus Urine Present /lpf; Need Manual Microscopic Reviewed; Nitrate Urine Negative (Negative); Non Pathogenic Casts >20; Protein Urine 2+ mg/dL (Negative); RBC Urine 0-2 /hpf (0-2); Specific Grav Ur 1.016 (1.001-1.035); Squamous Epithelial Cell Urine Moderate /hpf (Few); Urobilinogen Urine 0.2 mg/dL (<2.0); WBC Urine 21-50 /hpf (0-3)
[2023-07-02 21:15] LABS: Add Urine Microscopic? YES
--- NOTE | 2023-07-02 22:06 | ADMGEN ---
This patient, Francisca Raines, was admitted to Medical Room 252-01. Patient/family oriented to hospital policies and general routines including ID bracelet, bed and alarms, visiting hours, pain management, procedures, bathroom and other care routines, personal items, smoking policy, room service/diet, and visiting hours. Information on how to activate the Rapid Response Team has been discussed. Patient/Family are encouraged to report perceived risks to care and to ask questions if they do not understand what they are told or what they should do.
--- NOTE | 2023-07-02 22:45 | PM.IMHP ---
H&P: HPI History of Present Illness Date/Time: 07/02/23 22:45 Chief Complaint: Low blood pressure and not urinating Narrative: 63-year-old female with past medical history of chronic anemia, HERNANDEZ stage II, type 2 diabetes mellitus, GERD, essential hypertension COPD and prior hospitalizations for acute kidney injury due to dehydration who presented to the ER with low blood pressure and decreased urine output that started today. The patient reported that she has intermittent diarrhea interspersed with constipation. Usually her diarrheal symptoms will last a week or so on the resolved. This time patient had 2 weeks of her usual soft mushy stools and diarrhea but over the last week has developed frankly watery brown stools. She did not have any significant abdominal pain until her very last bowel movement yesterday. She has not had any further bowel movements since that time. She did manage to eat a turkey sandwich on arrival to the medical floor and still has not had any further bowel movements. She denies any fevers or chills. She has not had any recent travel or recent known illnesses. She did finish an antibiotic course with Sydnie 2 weeks ago. She finished antibiotics for reported UTI. She has not had any recurrence of her dysuria or urinary frequency. In fact she has been an uric since the evening of the . She became concerned on the morning of the when she became significantly lightheaded with standing. So she was went into the living room and checked her blood pressure while she was sitting down her blood pressures were 78/50s. By the time she arrived to the ER patient's blood pressures had improved to the low 100s systolic. The patient reports that it is her 45th anniversary of working for [employer]. She is supposed to have meier and a fruit basket delivered to her home. She is hopeful that she will be discharged tomorrow so that she can still receive her gift. Review of Systems Review of Systems: 12 systems were reviewed with pertinent positives and negatives per HPI. Except as documented in the HPI, all other systems were reviewed and are negative. [facility] Past Medical History Medical History Chronic anemia Chronic obstructive pulmonary disease, unspecified Colon polyps Complete rotator cuff tear (01/14/15) Degenerative joint disease (DJD) of hip Diabetes mellitus with neuropathy Engages in vaping Essential (primary) hypertension GERD (gastroesophageal reflux disease) Hearing loss, bilateral Hereditary and idiopathic neuropathy, unspecified Hyperlipidemia Hyperlipidemia, unspecified Lung cancer Status post radiation treatment HERNANDEZ (nonalcoholic steatohepatitis) With a liver biopsy 2021 demonstrating stage II disease Nicotine abuse Nicotine dependence, unspecified, uncomplicated SARAH (obstructive sleep apnea) Pulmonary nodules Right hip pain TMJ (temporomandibular joint disorder) Vitamin D deficiency, unspecified Surgical History Surgical History (Updated 07/02/23 @ 22:58 by Roro Bray DO) History of colonoscopy with polypectomy 2021 with repeat colonoscopy recommended in 3 years History of liver biopsy (~2021) Performed in [place] History of lung biopsy History of rotator cuff surgery Hx of appendectomy Hx of cholecystectomy Family History Family History Grandparent Carcinoma of colon, Onset Age: 85 Family history of lung cancer, Onset Age: 40 Father Malignant neoplasm of prostate, Onset Age: 76 Acute myocardial infarction, Onset Age: 76 Family history of chronic obstructive pulmonary disease Patient's father is Sibling Hypertension Mother Family history of malignant neoplasm of brain, Onset Age: 72 Social History Social History (Updated 07/03/23 @ 07:41 by Roro Bray DO) Social History: She has been since he
[2023-07-03] VITALS (10 sets, daily range): BP systolic 98–125; BP diastolic 40–67; PULSE 66–76; RESP 16–21; TEMP 36.3–37.2; O2SAT 96–99
[2023-07-03] MEDS: MAGNESIUM SULF 2 GM/WATER 50ML 2 GM/50 ML BAG IVPB (00:16)
[2023-07-03] MEDS: SODIUM CHLORIDE 0.9% IV 1,000 ML 125 ML IV CONT ×3 (00:16→18:04)
[2023-07-03] MEDS: GABAPENTIN 300 MG CAPSULE 600 MG PO ×2 (00:18→20:26)
[2023-07-03 05:03] LABS: Basophils Absolute Auto 0.1 K/mm3 (0.0-0.1); Basophils Percent Auto 1.1 % (0.2-1.2); Eosinophils Absolute Auto 0.2 K/mm3 (0-0.3); Eosinophils Percent Auto 2.7 % (0-4.4); Hematocrit 28.5 % (37.0-47.0); Hemoglobin 9.2 g/dL (12.0-15.0); Immature Granulocyte Absolute 0.03 K/mm3 (0.00-0.031); Immature Granulocyte Percent A 0.5 % (0-0.5); Lymphocytes Percent Auto 28.3 % (18.3-44.2); Mean Corpuscular HGB Conc 32.3 g/dl (32-36); Mean Corpuscular Hemoglobin 31.6 pg (26-34); Mean Corpuscular Volume 97.9 fl (80-100); Mean Platelet Volume 8.8 fl (7.4-10.4); Monocytes Absolute Auto 0.4 K/mm3 (0.1-0.6); Monocytes Percent Auto 6.2 % (2.6-8.5); Neutrophils Absolute Auto 3.5 K/mm3 (1.3-6.7); Neutrophils Percent Auto 61.2 % (45.5-73.1); Platelet Count Result 196 k/mm3 (150-375); Red Blood Count 2.91 M/mm3 (4.2-5.4); Red Cell Distribution Width 13.9 % (11.5-14.5); White Blood Count 5.7 K/mm3 (4.5-10.0)
[2023-07-03 05:16] LABS: Lactic Acid Reflex 1.7 mmol/L (0.7-2.0)
[2023-07-03 05:18] LABS: Alanine Aminotransferase 17 U/L (6-35); Albumin Level 3.7 g/dL (3.5-5.1); Alkaline Phosphatase 91 U/L (38-126); Anion Gap 8 mmol/L (4-12); Aspartate Amino Transferase 21 U/L (14-36); Bilirubin,Total 0.6 mg/dL (0.2-1.3); Blood Urea Nitrogen 18 mg/dL (7-17); Calcium 8.1 mg/dL (8.4-10.2); Carbon Dioxide 20 mmol/L (22-30); Chloride 100 mmol/L (98-107); Estimated CRCL calculation 30 ml/min; Estimated Glomerular Filt Rate 25; Glucose 111 mg/dL (65-110); Magnesium 2.2 mg/dL (1.6-2.3); Potassium 3.3 mmol/L (3.4-5.0); Sodium 128 mmol/L (137-145)
[2023-07-03] MEDS: UMECLIDINIUM/VILANTEROL 62.5-25 MCG ELLIPTA 1 PUFF INHALATION (08:11)
[2023-07-03 08:19] LABS: Glucose Point of Care 90 mg/dl (65-105)
[2023-07-03] MEDS: ENOXAPARIN 30 MG/0.3 ML SYRINGE SUB-Q (08:26)
[2023-07-03] MEDS: PANTOPRAZOLE 40 MG TABLET PO ×2 (08:27→16:44)
[2023-07-03] MEDS: ATORVASTATIN 40 MG TABLET 80 MG PO (08:27)
[2023-07-03] MEDS: cycloSPORINE 0.4 ML OPHTH SOLUTION 1 DROP EACH EYE ×2 (08:27→20:26)
[2023-07-03] MEDS: FERROUS GLUCONATE 324 MG TABLET PO ×2 (08:28→16:44)
[2023-07-03] MEDS: GABAPENTIN 300 MG CAPSULE PO ×2 (08:28→16:44)
[2023-07-03] MEDS: SOLIFENACIN 5 MG TABLET 10 MG PO (08:29)
[2023-07-03] MEDS: METOPROLOL TARTRATE 25 MG TABLET PO ×2 (08:31→20:26)
[2023-07-03 11:59] LABS: Glucose Point of Care 96 mg/dl (65-105)
--- NOTE | 2023-07-03 12:51 | PM.IMPN ---
Progress Note: A&P Assessment and Plan (1) Acute kidney injury: Code(s): N17.9 - Acute kidney failure, unspecified Status: Acute Assessment and Plan: Patient has acute kidney injury due to severe dehydration. BUN/Cr on admission 21/3.3 IV fluids continued at 125 cc/hr 4/30 BUN and Creatinine on 18/2.0 (2) Severe dehydration: Code(s): E86.0 - Dehydration Status: Acute Assessment and Plan: Patient has acute kidney injury due to severe dehydration. However patient did recently receive both nitrofurantoin and Cipro at the beginning of June in the july be a component of antibiotic a associated diarrhea. Patient received 30 mL/kilos bolus in the ER with significant improvement in lactic acidosis. IV fluids continued at 125 cc/hr Kidney function improving. (3) Irritable bowel syndrome: Qualifiers: Irritable bowel syndrome type: with both diarrhea and constipation Qualified Code(s): K58.2 - Mixed irritable bowel syndrome Code(s): K58.9 - Irritable bowel syndrome without diarrhea Status: Acute Assessment and Plan: Given the diarrhea has resolved and that CT does not demonstrate any evidence of obvious colitis I am more suspicious of irritable bowel syndrome. 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 She is currently euglycemic. Will hold the patient's metformin but continue her Januvia. Will check Accu-Cheks a.c. HS and will add moderate dose sliding scale insulin with hypoglycemia protocol as needed. Will change diet to consistent carbohydrate. (5) Essential (primary) hypertension: Code(s): I10 - Essential (primary) hypertension Status: Acute Assessment and Plan: Will resume the patient's home metoprolol. Will hold patient's lisinopril hydrochlorothiazide until creatinine improves. (6) SARAH (obstructive sleep apnea): Code(s): G47.33 - Obstructive sleep apnea (adult) (pediatric) Status: Acute Assessment and Plan: Will place order for auto titrating CPAP/BiPAP at night. (7) Pyuria: Code(s): R82.81 - Pyuria Status: Acute Assessment and Plan: Patient does have pyuria on UA but has no urinary symptoms, leukocytosis or fever. This is likely asymptomatic pyuria. Urine cultures are pending. Subjective Date/time seen: 07/03/23 12:51 Interval history: patient's mouth and time she drive talking to her. She states she is difficulty is urinating quite frequently. She is still receiving IV fluids. She denies any nausea vomiting. Patient stated that prior to ED arrival she was having some dizziness other than that she felt fine. She states that her mouth the not become dry until after arriving to the ED. States that she sips of water all day and is not huge liquid drinker. Exam Narrative: GENERAL: Comfortable, no acute distress, obese HENMT: Dry mucous membranes and tongue EYES: EOM intact b/l NECK: no lymphadenopathy RESPIRATORY: clear to auscultation, no increased respiratory effort CARDIO: Regular rate and rhythm GI: soft, nontender, bowel sounds present SKIN/EXTREMITIES: no rashes, no edema, no redness or tenderness NEURO: PROM intact, answers questions appropriately, A&O x4 Objective Data Vital Signs Vital Signs: Vital Signs - 24 hr 07/02/23 16:08 07/02/23 17:07 07/02/23 19:04 Temperature 97.8 F Pulse Rate 64 64 Respiratory Rate 18 14 17 Blood Pressure 101/52 L 107/53 L Pulse Oximetry 100 94 93 Oxygen Delivery Room Air 07/02/23 19
--- NOTE | 2023-07-03 15:11 | PCCCNOTE ---
On 07/03/23, the student, Lore Harris, provided care and completed [facility] documentation on this patient. I have reviewed the student's documentation and agree with the findings.
[2023-07-03 16:51] LABS: Glucose Point of Care 118 mg/dl (65-105)
[2023-07-03 20:26] LABS: Glucose Point of Care 122 mg/dl (65-105)
[2023-07-04] MEDS: SODIUM CHLORIDE 0.9% IV 1,000 ML 125 ML IV CONT ×2 (03:29→11:45)
[2023-07-04 03:57] VITALS: BP 120/43; PULSE 68; RESP 18; TEMP 36.6; O2SAT 96
[2023-07-04 04:57] LABS: Hematocrit 26.9 % (37.0-47.0); Hemoglobin 8.9 g/dL (12.0-15.0); Mean Corpuscular HGB Conc 33.1 g/dl (32-36); Mean Corpuscular Hemoglobin 32.4 pg (26-34); Mean Corpuscular Volume 97.8 fl (80-100); Mean Platelet Volume 9.1 fl (7.4-10.4); Platelet Count Result 191 k/mm3 (150-375); Red Blood Count 2.75 M/mm3 (4.2-5.4); Red Cell Distribution Width 13.7 % (11.5-14.5); White Blood Count 4.3 K/mm3 (4.5-10.0)
[2023-07-04 05:12] LABS: Anion Gap 7 mmol/L (4-12); Blood Urea Nitrogen 14 mg/dL (7-17); Calcium 9.2 mg/dL (8.4-10.2); Carbon Dioxide 21 mmol/L (22-30); Chloride 107 mmol/L (98-107); Estimated CRCL calculation 65 ml/min; Estimated Glomerular Filt Rate > 60; Glucose 102 mg/dL (65-110); Potassium 3.9 mmol/L (3.4-5.0); Sodium 135 mmol/L (137-145)
[2023-07-04 07:00] VITALS: PULSE 65; RESP 18
[2023-07-04] MEDS: UMECLIDINIUM/VILANTEROL 62.5-25 MCG ELLIPTA 1 PUFF INHALATION (07:01)
[2023-07-04 07:55] LABS: Glucose Point of Care 93 mg/dl (65-105)
[2023-07-04 08:00] VITALS: BP 133/55; PULSE 60; RESP 20; TEMP 36.4; O2SAT 98
[2023-07-04 08:31] VITALS: PULSE 60
[2023-07-04] MEDS: SOLIFENACIN 5 MG TABLET 10 MG PO (08:31)
[2023-07-04] MEDS: METOPROLOL TARTRATE 25 MG TABLET PO (08:31)
[2023-07-04] MEDS: GABAPENTIN 300 MG CAPSULE PO (08:32)
[2023-07-04] MEDS: PANTOPRAZOLE 40 MG TABLET PO (08:32)
[2023-07-04] MEDS: ATORVASTATIN 40 MG TABLET 80 MG PO (08:32)
[2023-07-04] MEDS: FERROUS GLUCONATE 324 MG TABLET PO (08:34)
[2023-07-04] MEDS: cycloSPORINE 0.4 ML OPHTH SOLUTION 1 DROP EACH EYE (08:34)
[2023-07-04] MEDS: ENOXAPARIN 40 MG/0.4 ML SYRINGE SUB-Q (08:41)
[2023-07-04] MEDS: hydroCHLOROthiazide 12.5 MG CAPSULE PO (09:44)
[2023-07-04] MEDS: lisinopriL 20 MG TABLET PO (09:44)
[2023-07-04 11:50] LABS: Glucose Point of Care 118 mg/dl (65-105)
[2023-07-04 12:00] VITALS: BP 112/54; PULSE 60; RESP 18; TEMP 36.4; O2SAT 97
--- NOTE | 2023-07-04 15:48 | PM.DS ---
DS: Admitting Diagnosis Discharge Date 07/04/23 Admitting Diagnosis Acute kidney injury Severe dehydration Irritable bowel syndrome Diabetes mellitus with neuropathy Hypomagnesemia Essential hypertension Obstructive sleep apnea Pyuria DS: Discharge Diagnosis Discharge Diagnosis (1) Acute kidney injury: Code(s): N17.9 - Acute kidney failure, unspecified Status: Acute (2) Severe dehydration: Code(s): E86.0 - Dehydration Status: Acute (3) Irritable bowel syndrome: Qualifiers: Irritable bowel syndrome type: with both diarrhea and constipation Qualified Code(s): K58.2 - Mixed irritable bowel syndrome Code(s): K58.9 - Irritable bowel syndrome without diarrhea Status: Acute (4) Diabetes mellitus with neuropathy: Qualifiers: Diabetes mellitus type: type 2 Diabetes mellitus custodial insulin use: without pile driving technician use Qualified Code(s): E11.40 - Type 2 diabetes mellitus with diabetic neuropathy, unspecified Code(s): E11.40 - Type 2 diabetes mellitus with diabetic neuropathy, unspecified Status: Acute (5) Hypomagnesemia: Code(s): E83.42 - Hypomagnesemia Status: Acute (6) Essential (primary) hypertension: Code(s): I10 - Essential (primary) hypertension Status: Acute (7) SARAH (obstructive sleep apnea): Code(s): G47.33 - Obstructive sleep apnea (adult) (pediatric) Status: Acute (8) Pyuria: Code(s): R82.81 - Pyuria Status: Acute DS: Summary Hospital Course Reason for hospitalization: Acute kidney injury Severe dehydration Irritable bowel syndrome Diabetes mellitus with neuropathy Hypomagnesemia Essential hypertension Obstructive sleep apnea Pyuria Hospital Course: 63-year-old female with past medical history of chronic anemia, HERNANDEZ stage II, type 2 diabetes mellitus, GERD, essential hypertension COPD and prior hospitalizations for acute kidney injury due to dehydration who presented to the ER with low blood pressure and decreased urine output that started on 07/02/23. She has a history of IBS with intermittent diarrhea and constipation. She states that she has had 2 weeks of diarrhea with the last week being extremely watery brown stools. She also noted that she was treated with macrobid and cipro 2 weeks ago for a UTI, so concern for antibiotic associated diarrhea as well. She states that at home she developed dizziness and lightheadedness which prompted her to take her blood pressure, revealing hypotension iof 70s/50s. Blood pressure was in the 100s systolic on arrival to ED. She was started on IV fluids in the ED and blood pressures continued to trend up. Her lisinopril-HCTZ was originally being held due to hypotension, however prior to discharge was restarted and blood pressures remained stable. Discussed with patient that she should check her blood pressure prior to taking her antihypertensives. She states understanding. Labs were obtained during her admission and patient was found to have an acute kidney injury due to dehydration likely secondary to diarrhea. With continuous IV fluids the mejia has since resolved and BUN/Cr returning to normal limit. Patient reports normal voiding today and a urine culture showed no growth. Discussed the importance of staying adequately hydrated with patient to avoid dehydration. Patients diarrhea has resolved and she is tolerating a normal diet well. Patient discharged home with family in a stable condition. She will follow up with her PCP in 1 week to discuss recent admission. Status at Discharge Functional status at discharge: independent ambulation Time Spent with Patient Time attestation: Total time spent providing and/or coordinating discharge services: Time spent: Greater than 30 minutes Exam Narrative: AF HR 60 RR 18 SpO2 97 BP 112/54 General: female in no acute respiratory distress who is nontoxic appearing, sitting up in bed HEENT: Normocephalic. Atraumatic
== END 2023-07-04 13:36 | disposition home or self-care (01) ==
LOC: ANHED 21:22 → ANH2MED 21:52
PROVIDERS: Internal Medicine Critical Care Medicine; Physician Assistant; Admitting Provider Internal Medicine; Emergency Provider Physician Assistant; PCP Family Medicine; Visit Provider General Practice
DX: N17.9 Acute kidney failure, unspecified (principal); E86.0 Dehydration; R82.81 Pyuria; D64.9 Anemia, unspecified; K58.2 Mixed irritable bowel syndrome; E11.40 Type 2 diabetes mellitus with diabetic neuropathy, unspecified; I10 Essential (primary) hypertension; K21.9 Gastro-esophageal reflux disease without esophagitis; E78.5 Hyperlipidemia, unspecified; Z85.118 Personal history of other malignant neoplasm of bronchus and lung; G47.33 Obstructive sleep apnea (adult) (pediatric); E55.9 Vitamin D deficiency, unspecified; F17.290 Nicotine dependence, other tobacco product, uncomplicated
CPT/HCPCS: 36415; 70450; 74176; 80048; 80053; 81001; 82550; 82948; 83605; 83735; 84484; 85025; 85027; 87086; 93005; 94640; 96361; 96365; 96372; 96376; 99285; A9270; G0378; J1650; J3475; J7030

== ENCOUNTER 2023-08-27 15:16 | Outpatient (CLI) | payer BC, SELFPAY ==
--- NOTE | ~2023-08-27 | XR_ITS ---
EXAMINATION: XR lumbar spine 2-3V, XR sacrum coccyx min 2V DATE: 08/27/2023 15:42 INDICATION: 2 months of low back pain TECHNIQUE: 1. Anteroposterior and lateral views of the lumbar spine, and cone-down lateral view of the lumbosacr al junction were obtained. 2. AP, angled AP and lateral views of the sacrum and coccyx were obtained. COMPARISON: 12/24/2009 FINDINGS: 2-3 mm anterolisthesis L4 on L5. Vertebral body heights are normal. Mild disc height loss at T11-T12 and L4-L5. Intervening disc heights are normal with small endplate osteophytes. Moderate to severe o steoarthritis at L4-L5 and L5-S1 with mild osteoarthritis at the more cephalad lumbar spine. Mild rig ht and mild to moderate left sacroiliac osteoarthritis. There is also mild to moderate osteoarthritis at the bilateral hips. Cholecystectomy clips at the right upper quadrant with possible dropped clip in the right lower quadrant. Extensive aortic atherosclerotic calcifications. IMPRESSION: 1. Mild lumbar spondylosis with moderate to severe lower lumbar facet osteoarthritis. 2. Additional polyarticular osteoarthritis, mild at the right sacral joints and mild to moderate at t he left sacroiliac and bilateral hip joints. Reviewed, dictated and finalized at location B. IMPRESSION: 1. Mild lumbar spondylosis with moderate to severe lower lumbar facet osteoarth ritis. 2. Additional polyarticular osteoarthritis, mild at the right sacral joints and mild to moderate at the left sacroiliac and bilateral hip joints.
== END 2023-08-27 15:17 | disposition home or self-care (01) ==
PROVIDERS: PCP Family Medicine; Visit Provider Physician Assistant
DX: M53.3 Sacrococcygeal disorders, not elsewhere classified (principal); J18.1 Lobar pneumonia, unspecified organism; M47.896 Other spondylosis, lumbar region
CPT/HCPCS: 72100; 72220

== ENCOUNTER 2023-10-26 23:12 | Inpatient (IN) | payer BC, SELFPAY ==
[2023-10-26 23:18] VITALS: BP 172/55; PULSE 88; RESP 20; TEMP 36.5; O2SAT 95
[2023-10-27] VITALS (42 sets, daily range): BP systolic 138–153; BP diastolic 53–110; PULSE 45–83; RESP 13–26; TEMP 36.2–36.9; O2SAT 90–100; BMI 34.2
[2023-10-27 00:17] LABS: Basophils Percent Auto 0.2 % (0.2-1.2); Hematocrit 33.5 % (37.0-47.0); Hemoglobin 11.2 g/dL (12.0-15.0); Immature Granulocyte Absolute 0.08 K/mm3 (0.00-0.031); Lymphocytes Absolute Auto 0.95 K/mm3 (0.9-3.2); Lymphocytes Percent Auto 11.6 % (18.3-44.2); Mean Corpuscular HGB Conc 33.4 g/dl (32-36); Mean Corpuscular Volume 92.8 fl (80-100); Mean Platelet Volume 9.5 fl (7.4-10.4); Monocytes Absolute Auto 0.1 K/mm3 (0.1-0.6); Monocytes Percent Auto 0.9 % (2.6-8.5); Neutrophils Absolute Auto 7.1 K/mm3 (1.3-6.7); Neutrophils Percent Auto 86.3 % (45.5-73.1); Platelet Count Result 237 k/mm3 (150-375); Red Blood Count 3.61 M/mm3 (4.2-5.4); Red Cell Distribution Width 13.3 % (11.5-14.5); White Blood Count 8.2 K/mm3 (4.5-10.0)
[2023-10-27 00:39] LABS: Alanine Aminotransferase 28 U/L (6-35); Albumin Level 4.5 g/dL (3.5-5.1); Alkaline Phosphatase 151 U/L (38-126); Anion Gap 16 mmol/L (4-12); Aspartate Amino Transferase 40 U/L (14-36); Blood Urea Nitrogen 17 mg/dL (7-17); Calcium 9.9 mg/dL (8.4-10.2); Carbon Dioxide 20 mmol/L (22-30); Chloride 96 mmol/L (98-107); Estimated CRCL calculation 50 ml/min; Estimated Glomerular Filt Rate 45; Glucose 669 mg/dL (65-110); Magnesium 1.4 mg/dL (1.6-2.3); Phosphorus 4.2 mg/dL (2.5-4.5); Potassium 4.3 mmol/L (3.4-5.0); Sodium 132 mmol/L (137-145)
[2023-10-27 00:54] LABS: Glucose Point of Care > 500 mg/dl (65-105)
[2023-10-27] MEDS: SODIUM CHLORIDE 0.9% IV 1,000 ML 999 ML IV CONT ×2 (01:05→01:06)
[2023-10-27 01:21] LABS: Add Urine Microscopic? YES; Appearance Urine Clear (Clear); Bacteria Urine 4+ /hpf; Bilirubin Urine Negative (Negative); Blood Urine Negative (Negative); Color Urine Yellow (Yellow); Glucose Urine UA 3+ mg/dL (Negative); Ketones Urine Negative (Negative); Leukocyte Esterase Ur 1+ LEU/UL (Negative); Nitrate Urine Negative (Negative); Non Pathogenic Casts 0-2; Protein Urine Negative (Negative); RBC Urine 0-2 /hpf (0-2); Specific Grav Ur 1.034 (1.001-1.035); Squamous Epithelial Cell Urine None Seen /hpf (Few); Urobilinogen Urine 0.2 mg/dL (<2.0); WBC Urine 51-100 /hpf (0-3); pH Urine 5.5 (5.0-9.0)
[2023-10-27 02:31] LABS: Glucose Point of Care > 500 mg/dl (65-105)
[2023-10-27] MEDS: INSULIN HUMAN REGULAR (*BKC) 100 UNITS/ML IV PUSH (03:14)
--- NOTE | 2023-10-27 03:22 | ED.GENADULT ---
HPI - General Adult General Chief complaint: Unspecified Stated complaint: high blood pressure Time Seen by Provider: 10/27/23 00:48 History of Present Illness HPI narrative: patient is 63-year-old female who presents emergency department with chief complaint of hyperglycemia. Patient reports she has history of diabetes and has had issues with controlling her blood sugars recently they have been increasing her oral medications and her blood sugar continues to climb the patient reports that today she has been having polyuria polydipsia and reports that she had an injection in her knee done with steroids. The patient states this evening she noticed that her blood sugars were greater than 500 and decided to come to the emergency department. Related Data Home Medications Medication Instructions Recorded Confirmed cyclosporine 0.05 % eye drops in a 1 drp EACH EYE Q12H 01/19/22 10/12/23 dropperette (Restasis) lancets (Accu-Chek Fastclix Lancet 01/19/22 10/12/23 Drum) azelastine 137 mcg (0.1 %) nasal 1 spray intranasal BID PRN stuffy 02/24/23 10/12/23 spray nose gabapentin 300 mg capsule 600 mg PO HS 02/24/23 10/12/23 atorvastatin 80 mg tablet 80 mg PO DAILY 07/02/23 10/12/23 gabapentin 300 mg capsule 300 mg PO BID 07/02/23 10/12/23 Allergies Allergy/AdvReac Type Severity Reaction Status Date / Time penicillin G Allergy Mild rash Verified 10/26/23 08:40 dapagliflozin [From Farxiga] AdvReac Intermediate leg pain Verified 10/26/23 08:40 metformin AdvReac Intermediate severe Uncoded 10/26/23 08:40 diarrhea Review of Systems Review of Systems: A 10 system review of systems was completed on the patient and is negative except for what is stated in the HPI. Nursing and ancillary documentation was reviewed. [facility] Past Medical History Medical History Chronic anemia Chronic obstructive pulmonary disease, unspecified Colon polyps Complete rotator cuff tear (01/14/15) Degenerative joint disease (DJD) of hip Diabetes mellitus with neuropathy Engages in vaping Essential (primary) hypertension GERD (gastroesophageal reflux disease) Hearing loss, bilateral Hereditary and idiopathic neuropathy, unspecified Hyperlipidemia Hyperlipidemia, unspecified Lung cancer Status post radiation treatment HERNANDEZ (nonalcoholic steatohepatitis) With a liver biopsy 2021 demonstrating stage II disease Nicotine abuse Nicotine dependence, unspecified, uncomplicated SARAH (obstructive sleep apnea) Pulmonary nodules Right hip pain Right knee DJD TMJ (temporomandibular joint disorder) Vitamin D deficiency, unspecified Surgical History Surgical History History of colonoscopy with polypectomy 2021 with repeat colonoscopy recommended in 3 years History of liver biopsy (~2021) Performed in [place] History of lung biopsy History of rotator cuff surgery Hx of appendectomy Hx of cholecystectomy Family History Family History Grandparent Carcinoma of colon, Onset Age: 85 Family history of lung cancer, Onset Age: 40 Father Malignant neoplasm of prostate, Onset Age: 76 Acute myocardial infarction, Onset Age: 76 Family history of chronic obstructive pulmonary disease Patient's father is Sibling Hypertension Mother Family history of malignant neoplasm of brain, Onset Age: 72 Social History Social History Social History: She has been since her late 20s. She has 1 son who is 23 years old. She has been employed with the [employer] for 45 years. She read works from home remotely. She has smoked a pack of cigarettes per day and started smoking in her late 20s. She still vapes. She denies significant alcohol or illicit substance use. Code
[2023-10-27] MEDS: SODIUM CHLORIDE 0.9% IV 1,000 ML 125 ML IV CONT (03:51)
[2023-10-27] MEDS: MAGNESIUM SULF 2 GM/WATER 50ML 2 GM/50 ML BAG IVPB (03:53)
[2023-10-27 04:27] LABS: Glucose Point of Care 387 mg/dl (65-105)
--- NOTE | 2023-10-27 06:24 | ADMGEN ---
This patient, Francisca Raines, was admitted to IMU Room 211-01 on 10/27/23 at 0553. Patient/family oriented to hospital policies and general routines including ID bracelet, bed and alarms, visiting hours, pain management, procedures, bathroom and other care routines, personal items, smoking policy, room service/diet, and visiting hours. Information on how to activate the Rapid Response Team has been discussed. Patient/Family are encouraged to report perceived risks to care and to ask questions if they do not understand what they are told or what they should do.
[2023-10-27 06:59] LABS: Glucose Point of Care 338 mg/dl (65-105)
[2023-10-27] MEDS: INSULIN ASPART (*BKC) 100 UNITS/ML SUB-Q ×3 (08:48→21:20)
[2023-10-27] MEDS: GABAPENTIN 300 MG CAPSULE PO ×2 (10:56→17:05)
[2023-10-27] MEDS: lisinopriL 20 MG TABLET PO (10:56)
[2023-10-27] MEDS: METOPROLOL TARTRATE 25 MG TABLET PO ×2 (10:56→21:18)
[2023-10-27] MEDS: SOLIFENACIN 5 MG TABLET 10 MG PO (10:57)
[2023-10-27] MEDS: hydroCHLOROthiazide 12.5 MG CAPSULE PO (10:57)
[2023-10-27] MEDS: cycloSPORINE 0.4 ML OPHTH SOLUTION 1 DROP EACH EYE ×2 (12:12→21:18)
[2023-10-27 12:25] LABS: Hemoglobin A1C 8.1 % (<5.7)
[2023-10-27 16:11] LABS: Glucose Point of Care 310 mg/dl (65-105)
[2023-10-27] MEDS: PANTOPRAZOLE 40 MG TABLET PO (17:05)
--- NOTE | 2023-10-27 18:55 | PM.IMHP ---
H&P: HPI History of Present Illness Date/Time: 10/27/23 18:55 Chief Complaint: Hyperglycemia Narrative: ER-HPI narrative: patient is 63-year-old female who presents emergency department with chief complaint of hyperglycemia. Patient reports she has history of diabetes and has had issues with controlling her blood sugars recently they have been increasing her oral medications and her blood sugar continues to climb the patient reports that today she has been having polyuria polydipsia and reports that she had an injection in her knee done with steroids. The patient states this evening she noticed that her blood sugars were greater than 500 and decided to come to the emergency department. 63-year-old female with history of type 2 diabetes presented emergency department with a complaint of hypoglycemia are with polyuria polydipsia polyphagia, patient's A1c is 8.1, currently patient is only taking glipizide 10 mg q.d., patient states see had taken metformin and Januvia and had a constipation most likely patient has a diabetic gastroparesis, will start the patient on metformin 500 mg q.day and Januvia 25 mg q.day will monitor patient blood sugar with sliding scale, also patient is morbidly obese will benefit with intense physical therapy as well as pharmacologically to reduce her weight. Will consult educator senior clinical as well as dietitian and further recommendation to follow. Review of Systems Review of Systems: A 10 system review of systems was completed on the patient and is negative except for what is stated in the HPI. Nursing and ancillary documentation was reviewed. [facility] Past Medical History Medical History Chronic anemia Chronic obstructive pulmonary disease, unspecified Colon polyps Complete rotator cuff tear (01/14/15) Degenerative joint disease (DJD) of hip Diabetes mellitus with neuropathy Engages in vaping Essential (primary) hypertension GERD (gastroesophageal reflux disease) Hearing loss, bilateral Hereditary and idiopathic neuropathy, unspecified Hyperlipidemia Hyperlipidemia, unspecified Lung cancer Status post radiation treatment HERNANDEZ (nonalcoholic steatohepatitis) With a liver biopsy 2021 demonstrating stage II disease Nicotine abuse Nicotine dependence, unspecified, uncomplicated SARAH (obstructive sleep apnea) Pulmonary nodules Right hip pain Right knee DJD TMJ (temporomandibular joint disorder) Vitamin D deficiency, unspecified Surgical History Surgical History History of colonoscopy with polypectomy 2021 with repeat colonoscopy recommended in 3 years History of liver biopsy (~2021) Performed in [place] History of lung biopsy History of rotator cuff surgery Hx of appendectomy Hx of cholecystectomy Family History Family History Grandparent Family history of lung cancer, Onset Age: 40 Carcinoma of colon, Onset Age: 85 Father Malignant neoplasm of prostate, Onset Age: 76 Acute myocardial infarction, Onset Age: 76 Patient's father is Family history of chronic obstructive pulmonary disease Sibling Hypertension Mother Family history of malignant neoplasm of brain, Onset Age: 72 Patient's mother is Social History Social History Social History: She has been since her late 20s. She has 1 son who is 23 years old. She has been employed with the [employer] for 45 years. She read works from home remotely. She has smoked a pack of cigarettes per day and started smoking in her late 20s. She still vapes. She denies significant alcohol or illicit substance use. Code status: Full code Surrogate decision maker: Aubree (sister) Smoking packs per day: 1 Smoking cigarettes per day: 20.0 Ye
[2023-10-27] MEDS: GABAPENTIN 300 MG CAPSULE 600 MG PO (21:19)
[2023-10-27 21:20] LABS: Glucose Point of Care 363 mg/dl (65-105)
[2023-10-28] VITALS (17 sets, daily range): BP systolic 145–160; BP diastolic 56–70; PULSE 43–78; RESP 16–22; TEMP 35.7–36.8; O2SAT 92–100
[2023-10-28 04:48] LABS: Hematocrit 30.7 % (37.0-47.0); Hemoglobin 9.8 g/dL (12.0-15.0); Mean Corpuscular HGB Conc 31.9 g/dl (32-36); Mean Corpuscular Hemoglobin 30.6 pg (26-34); Mean Corpuscular Volume 95.9 fl (80-100); Mean Platelet Volume 9.6 fl (7.4-10.4); Platelet Count Result 205 k/mm3 (150-375); Red Cell Distribution Width 13.2 % (11.5-14.5); White Blood Count 8.6 K/mm3 (4.5-10.0)
[2023-10-28 05:01] LABS: Anion Gap 13 mmol/L (4-12); Blood Urea Nitrogen 27 mg/dL (7-17); Carbon Dioxide 23 mmol/L (22-30); Chloride 99 mmol/L (98-107); Estimated CRCL calculation 65 ml/min; Estimated Glomerular Filt Rate > 60; Glucose 316 mg/dL (65-110); Potassium 4.7 mmol/L (3.4-5.0); Sodium 135 mmol/L (137-145)
[2023-10-28] MEDS: UMECLIDINIUM/VILANTEROL 62.5-25 MCG ELLIPTA 1 PUFF INHALATION (07:53)
[2023-10-28 08:04] LABS: Glucose Point of Care 266 mg/dl (65-105)
[2023-10-28] MEDS: PANTOPRAZOLE 40 MG TABLET PO ×2 (08:46→16:57)
[2023-10-28] MEDS: lisinopriL 20 MG TABLET PO (08:46)
[2023-10-28] MEDS: glipiZIDE 5 MG TABLET 10 MG PO (08:52)
[2023-10-28] MEDS: hydroCHLOROthiazide 12.5 MG CAPSULE PO (09:01)
[2023-10-28] MEDS: GABAPENTIN 300 MG CAPSULE PO ×2 (09:02→16:57)
[2023-10-28] MEDS: INSULIN ASPART (*BKC) 100 UNITS/ML SUB-Q ×4 (09:06→21:06)
[2023-10-28] MEDS: ATORVASTATIN 40 MG TABLET 80 MG PO (09:07)
[2023-10-28 11:39] LABS: Glucose Point of Care 263 mg/dl (65-105)
[2023-10-28] MEDS: SITagliptin PHOSPHATE 25 MG TABLET PO (12:15)
[2023-10-28] MEDS: cycloSPORINE 0.4 ML OPHTH SOLUTION 1 DROP EACH EYE ×2 (12:16→21:03)
--- NOTE | 2023-10-28 15:17 | WPDPN ---
Progress Note: A&P Assessment and Plan (1) Acute hyperglycemia: Code(s): R73.9 - Hyperglycemia, unspecified Status: Acute Assessment and Plan: 63-year-old female with history of type 2 diabetes presented emergency department with a complaint of hypoglycemia are with polyuria polydipsia polyphagia, patient's A1c is 8.1, currently patient is only taking glipizide 10 mg q.d., patient states see had taken metformin and Januvia and had a constipation most likely patient has a diabetic gastroparesis, will start the patient on metformin 500 mg q.day and Januvia 25 mg q.day will monitor patient blood sugar with sliding scale, patient is reluctant to start metformin as patient had diarrhea in the past, will start low-dose while in the hospital the patient is able to tolerate this will benefit and help control her diabetes and weight, also patient is morbidly obese will benefit with intense physical therapy as well as pharmacologically medication to reduce her weight. Will consult line decorator as well as dietitian and further recommendation to follow. (2) Hypomagnesemia: Code(s): E83.42 - Hypomagnesemia Status: Acute Assessment and Plan: Most likely secondary to polyuria and poor p.o. intake will monitor and supplement (3) UTI (urinary tract infection): Code(s): N39.0 - Urinary tract infection, site not specified Status: Acute Assessment and Plan: Patient is being treated with Rocephin will follow-up on urine and blood culture (4) Essential (primary) hypertension: Code(s): I10 - Essential (primary) hypertension Status: Acute Assessment and Plan: Patient blood pressure is elevated will increase hydrochlorothiazide to 25 mg and lisinopril to 40 mg will monitor. (5) Acute kidney injury: Code(s): N17.9 - Acute kidney failure, unspecified Status: Acute Assessment and Plan: Most likely secondary to dehydration patient also has risk for diabetic nephropathy. Will monitor. Plan 63-year-old female with history of type 2 diabetes presented emergency department with a complaint of hypoglycemia are with polyuria polydipsia polyphagia, patient's A1c is 8.1, currently patient is only taking glipizide 10 mg q.d., patient states see had taken metformin and Januvia and had a constipation most likely patient has a diabetic gastroparesis, will start the patient on metformin 500 mg q.day and Januvia 25 mg q.day will monitor patient blood sugar with sliding scale, also patient is morbidly obese will benefit with intense physical therapy as well as pharmacologically to reduce her weight. Will consult line decorator as well as dietitian and further recommendation to follow. Subjective Date/time seen: 10/28/23 15:17 Interval history: 63-year-old female with history of type 2 diabetes presented emergency department with a complaint of hypoglycemia are with polyuria polydipsia polyphagia, patient's A1c is 8.1, currently patient is only taking glipizide 10 mg q.d., patient states see had taken metformin and Januvia and had a constipation most likely patient has a diabetic gastroparesis, will start the patient on metformin 500 mg q.day and Januvia 25 mg q.day will monitor patient blood sugar with sliding scale, patient is reluctant to start metformin as patient had diarrhea in the past, will start low-dose while in the hospital the patient is able to tolerate this will benefit and help control her diabetes and weight, also patient is morbidly obese will benefit with intense physical therapy as well as pharmacologically medication to reduce her weight. Will consult line decorator as well as dietitian and further recommendation to follow. Review of Systems Review of Systems: A 10 system review of systems was completed on the patient and is negative except for what is stated in the HPI. Nursing and ancillary documentation was reviewed. Exam Narrative: Morbi
[2023-10-28 16:27] LABS: Glucose Point of Care 263 mg/dl (65-105)
[2023-10-28] MEDS: metFORMIN HCL XR 500 MG TAB.SR.24H PO (16:45)
[2023-10-28 18:04] LABS: Magnesium 1.9 mg/dL (1.6-2.3)
[2023-10-28 20:34] LABS: Glucose Point of Care 262 mg/dl (65-105)
[2023-10-28] MEDS: GABAPENTIN 300 MG CAPSULE 600 MG PO (21:04)
[2023-10-28] MEDS: METOPROLOL TARTRATE 25 MG TABLET PO (21:05)
--- NOTE | 2023-10-29 00:19 | PC.NURSE ---
This patient, Francisca Raines, was transferred to [ 241 ] on 10/28/23 at 2030. Personal belongings sent with patient. Report given to [ Jerry RN ]. Appropriate documentation sent with patient.
[2023-10-29 04:57] VITALS: BP 150/60; PULSE 53; RESP 14; TEMP 36.4; O2SAT 99
[2023-10-29 06:11] LABS: Hematocrit 33.1 % (37.0-47.0); Hemoglobin 10.6 g/dL (12.0-15.0); Mean Corpuscular Hemoglobin 30.6 pg (26-34); Mean Corpuscular Volume 95.7 fl (80-100); Mean Platelet Volume 9.2 fl (7.4-10.4); Platelet Count Result 196 k/mm3 (150-375); Red Blood Count 3.46 M/mm3 (4.2-5.4); Red Cell Distribution Width 13.6 % (11.5-14.5); White Blood Count 7.4 K/mm3 (4.5-10.0)
[2023-10-29 06:25] LABS: Anion Gap 12 mmol/L (4-12); Blood Urea Nitrogen 27 mg/dL (7-17); Calcium 9.7 mg/dL (8.4-10.2); Carbon Dioxide 26 mmol/L (22-30); Chloride 98 mmol/L (98-107); Estimated CRCL calculation 74 ml/min; Estimated Glomerular Filt Rate > 60; Glucose 213 mg/dL (65-110); Potassium 4.4 mmol/L (3.4-5.0); Sodium 136 mmol/L (137-145)
[2023-10-29] MEDS: metFORMIN HCL XR 500 MG TAB.SR.24H PO (08:42)
[2023-10-29] MEDS: ATORVASTATIN 40 MG TABLET 80 MG PO (08:42)
[2023-10-29] MEDS: SITagliptin PHOSPHATE 25 MG TABLET PO (08:43)
[2023-10-29] MEDS: hydroCHLOROthiazide 12.5 MG CAPSULE PO (08:43)
[2023-10-29] MEDS: glipiZIDE 5 MG TABLET 10 MG PO (08:43)
[2023-10-29] MEDS: lisinopriL 20 MG TABLET PO (08:43)
[2023-10-29] MEDS: PANTOPRAZOLE 40 MG TABLET PO (08:43)
[2023-10-29] MEDS: GABAPENTIN 300 MG CAPSULE PO (08:44)
[2023-10-29] MEDS: cycloSPORINE 0.4 ML OPHTH SOLUTION 1 DROP EACH EYE (08:44)
[2023-10-29 08:45] VITALS: PULSE 46
[2023-10-29 09:32] LABS: Glucose Point of Care 164 mg/dl (65-105)
[2023-10-29 09:54] VITALS: PULSE 54; O2SAT 96
[2023-10-29] MEDS: UMECLIDINIUM/VILANTEROL 62.5-25 MCG ELLIPTA 1 PUFF INHALATION (09:54)
--- NOTE | 2023-10-29 10:58 | PCDIET ---
Physician consult for BMI 34.3 and A1c 8.1%. See Nutritional Teaching Intervention. Thank you for the consult.
[2023-10-29 12:11] LABS: Glucose Point of Care 144 mg/dl (65-105)
[2023-10-29 12:45] VITALS: BMI 34.7
--- NOTE | 2023-10-29 14:23 | PM.DS ---
DS: Admitting Diagnosis Discharge Date 10/29/2023 Admitting Diagnosis acute hyper glycemia DS: Discharge Diagnosis Discharge Diagnosis (1) Acute hyperglycemia: Code(s): R73.9 - Hyperglycemia, unspecified Status: Acute (2) Hypomagnesemia: Code(s): E83.42 - Hypomagnesemia Status: Acute (3) UTI (urinary tract infection): Code(s): N39.0 - Urinary tract infection, site not specified Status: Acute DS: Summary Hospital Course Hospital Course: 63-year-old female with history of type 2 diabetes presented emergency department with a complaint of hypoglycemia are with polyuria polydipsia polyphagia, patient's A1c is 8.1, currently patient is only taking glipizide 10 mg q.d., patient states see had taken metformin and Januvia and had a constipation most likely patient has a diabetic gastroparesis, will start the patient on metformin 500 mg q.day and Januvia 25 mg q.day will monitor patient blood sugar with sliding scale, patient is reluctant to start metformin as patient had diarrhea in the past, will start low-dose while in the hospital the patient is able to tolerate this will benefit and help control her diabetes and weight, also patient is morbidly obese will benefit with intense physical therapy as well as pharmacologically medication to reduce her weight. Will consult health educator as well as dietitian and further recommendation to follow. Today patient was able to tolerate metformin and Januvia, stats her blood sugars are improving, patient was seen by laster hand and special education paraeducator, and understands diabetes management, patient is clinically stable, will discharge patient today. Time Spent with Patient Time attestation: Total time spent providing and/or coordinating discharge services: Exam Narrative: Morbidly obese Patient is comfortable, NAD HEENT: eyes are clear and none icteric LUNGS:CTA HEART: RR S1S2 ABD: BS+, Soft and nontender Lower extremities: no edema SKIN: nonjaundiced Neuro: grossly intact. DS: Data Data Completed and Pending Labs on day of discharge: Labs from last 24 hours 10/29/23 10/29/23 10/29/23 11:48 08:52 05:36 WBC 7.4 RBC 3.46 L Hgb 10.6 L Hct 33.1 L MCV 95.7 MCH 30.6 MCHC 32.0 RDW 13.6 Plt Count 196 MPV 9.2 Sodium 136 L Potassium 4.4 Chloride 98 Carbon Dioxide 26 Anion Gap 12 BUN 27 H Creatinine 0.80 Estim Creat Clear Calc 74 Estimated GFR > 60 Glucose 213 H POC Capillary Glucose 144 H 164 H Calcium 9.7 Magnesium 10/28/23 10/28/23 10/28/23 20:08 15:59 03:56 WBC RBC Hgb Hct MCV MCH MCHC RDW Plt Count MPV Sodium Potassium Chloride Carbon Dioxide Anion Gap BUN Creatinine Estim Creat Clear Calc Estimated GFR Glucose POC Capillary Glucose 262 H 263 H Calcium Magnesium 1.9 Discharge Plan Discharge Attending physician on discharge: Isela Haines V. Discharging Clinician: Susie Davenport Patient Disposition: Home, Self-Care Activity: as tolerated Diet: heart healthy and diabetic Discharge Instructions: patient to follow discharge care instruction from special education paraeducator and laster hand and follow up as soon as possible, patient to follow up with her primary care provider as soon as possible. patient is instructed if any symptoms redevelop to go to nearest ER. Patient Instructions: Antibiotic Form, Basic Carbohydrate Counting (DC), Electronic Cigarettes and Your Health (GEN) Stand Alone Forms: General Discharge Information Follow-up/Referrals: Brianna Salamanca MD [Primary Care Provider] - Discharge Medications: New cefdinir 300 mg Capsule 300 mg PO Q12HR Qty: 8 0RF metformin 500 mg tablet extended release 24 hr 500 mg PO DAILY Qty: 30 0RF Rx Instructions: patient to take with meals Januvia 25 mg tablet 25 mg PO DA
--- NOTE | 2023-11-07 15:35 | PCCDE ---
?11/07/23: Followed up with patient by phone. She has followed up with PCP since Discharge Asking relevant questions, answered. She is focused on keeping her carbs per meal under what RD advised her (also h/o RD in her past). Has BILLY'luisana pérez Reports she has nurses from a healthline through work who call ~ monthly to help with lifestyle. Has outpatient DSMT/MNT flyer to call/ask Dr. Reed for referral if interested in future. FJ
== END 2023-10-29 15:10 | disposition home or self-care (01) | DRG 638 ==
LOC: ANHED 10-27 03:42 → ANHIMU 10-27 05:06 → ANH2MED 10-28 20:06
PROVIDERS: Admitting Provider Internal Medicine; Emergency Provider Emergency Medicine; PCP Family Medicine; Visit Provider Family Medicine
DX: E11.65 Type 2 diabetes mellitus with hyperglycemia (principal); N17.9 Acute kidney failure, unspecified; N39.0 Urinary tract infection, site not specified; E11.43 Type 2 diabetes mellitus with diabetic autonomic (poly)neuropathy; K31.84 Gastroparesis; E83.42 Hypomagnesemia; E86.0 Dehydration; I10 Essential (primary) hypertension; E66.01 Morbid (severe) obesity due to excess calories; Z68.34 Body mass index [BMI] 34.0-34.9, adult
CPT/HCPCS: 36415; 80048; 80053; 81001; 82010; 82948; 83036; 83735; 84100; 85025; 85027; 87077; 87086; 87088; 87186; 94640; 96361; 96365; 96366; 96367; 96375; 99285; A9270; G0378; J0696; J1815; J3475; J7030

== ENCOUNTER 2023-11-15 16:29 | Outpatient (CLI) | payer BC, SELFPAY ==
[2023-11-15 17:08] LABS: Alanine Aminotransferase 31 U/L (6-35); Albumin Level 4.7 g/dL (3.5-5.1); Alkaline Phosphatase 120 U/L (38-126); Aspartate Amino Transferase 41 U/L (14-36); Bilirubin,Total 0.6 mg/dL (0.2-1.3)
[2023-11-15 17:50] LABS: Iron 101 ug/dL (37-170)
[2023-11-15 18:00] LABS: Percent Iron Saturation 30 % (20-50)
[2023-11-15 18:12] LABS: Folic Acid 6.5 ng/mL (2.76->20)
[2023-11-27 14:48] LABS: ALT 23 U/L (6-29); Alpha-2-Macroglobulin 220 mg/dL (106-279); Apolipoprotein A1 148 mg/dL (101-198); Fibrosis Score 0.24; Fibrosis Stage F0-F1; GGT 123 U/L (3-65); Haptoglobin 153 mg/dL (43-212); Necroinflammat Act Grade A0; Reference ID 5118863; Total Bilirubin 0.2 mg/dL (0.2-1.2)
== END 2023-11-15 16:30 | disposition home or self-care (01) ==
LOC: ANHLAB 16:30
PROVIDERS: PCP Family Medicine; Visit Provider Nurse Practitioner Family
DX: D64.9 Anemia, unspecified (principal); R74.8 Abnormal levels of other serum enzymes; K75.81 Nonalcoholic steatohepatitis (NASH)
CPT/HCPCS: 36415; 80076; 81596; 82607; 82728; 82746; 83540; 83550

== ENCOUNTER 2024-02-18 14:04 | Outpatient (CLI) | payer BC, SELFPAY ==
[2024-02-18 14:31] LABS: Basophils Percent Auto 0.7 % (0.2-1.2); Eosinophils Absolute Auto 0.2 K/mm3 (0-0.3); Eosinophils Percent Auto 2.8 % (0-4.4); Hematocrit 33.6 % (37.0-47.0); Hemoglobin 10.8 g/dL (12.0-15.0); Immature Granulocyte Absolute 0.03 K/mm3 (0.00-0.031); Immature Granulocyte Percent A 0.5 % (0-0.5); Lymphocytes Absolute Auto 2.11 K/mm3 (0.9-3.2); Lymphocytes Percent Auto 34.3 % (18.3-44.2); Mean Corpuscular HGB Conc 32.1 g/dl (32-36); Mean Corpuscular Hemoglobin 31.4 pg (26-34); Mean Corpuscular Volume 97.7 fl (80-100); Mean Platelet Volume 8.8 fl (7.4-10.4); Monocytes Absolute Auto 0.4 K/mm3 (0.1-0.6); Monocytes Percent Auto 5.7 % (2.6-8.5); Neutrophils Absolute Auto 3.5 K/mm3 (1.3-6.7); Platelet Count Result 200 k/mm3 (150-375); Red Blood Count 3.44 M/mm3 (4.2-5.4); Red Cell Distribution Width 12.8 % (11.5-14.5); White Blood Count 6.2 K/mm3 (4.5-10.0)
[2024-02-18 14:42] LABS: Alanine Aminotransferase 17 U/L (6-35); Albumin Level 4.2 g/dL (3.5-5.1); Alkaline Phosphatase 157 U/L (38-126); Anion Gap 6 mmol/L (4-12); Aspartate Amino Transferase 28 U/L (14-36); Bilirubin,Total 0.6 mg/dL (0.2-1.3); Blood Urea Nitrogen 13 mg/dL (7-17); Calcium 9.7 mg/dL (8.4-10.2); Carbon Dioxide 28 mmol/L (22-30); Chloride 106 mmol/L (98-107); Estimated Glomerular Filt Rate > 60; Glucose 151 mg/dL (65-110); Sodium 140 mmol/L (137-145)
[2024-02-18 14:44] LABS: Hemoglobin A1C 5.6 % (<5.7)
== END 2024-02-18 14:05 | disposition home or self-care (01) ==
LOC: ANHLAB 14:07
PROVIDERS: PCP Student in an Organized Health Care Education/Training Program; Visit Provider Student in an Organized Health Care Education/Training Program
DX: E11.40 Type 2 diabetes mellitus with diabetic neuropathy, unspecified (principal); D64.9 Anemia, unspecified
CPT/HCPCS: 36415; 80053; 83036; 85025

== ENCOUNTER 2024-06-03 12:24 | Outpatient (CLI) | payer BC, SELFPAY ==
[2024-06-03 12:48] LABS: Hematocrit 33.6 % (37.0-47.0); Mean Corpuscular HGB Conc 32.7 g/dl (32-36); Mean Corpuscular Hemoglobin 31.9 pg (26-34); Mean Corpuscular Volume 97.4 fl (80-100); Mean Platelet Volume 9.1 fl (7.4-10.4); Platelet Count Result 178 k/mm3 (150-375); Red Blood Count 3.45 M/mm3 (4.2-5.4); White Blood Count 5.8 K/mm3 (4.5-10.0)
[2024-06-03 13:03] LABS: Alanine Aminotransferase 19 U/L (6-35); Albumin Level 4.4 g/dL (3.5-5.1); Alkaline Phosphatase 188 U/L (38-126); Anion Gap 11 mmol/L (4-12); Aspartate Amino Transferase 26 U/L (14-36); Bilirubin,Total 0.9 mg/dL (0.2-1.3); Blood Urea Nitrogen 18 mg/dL (7-17); Calcium 9.7 mg/dL (8.4-10.2); Carbon Dioxide 27 mmol/L (22-30); Chloride 102 mmol/L (98-107); Cholesterol 140 mg/dL (0-200); Estimated Glomerular Filt Rate > 60; Glucose 128 mg/dL (65-110); HDL Direct 47 mg/dL; Potassium 4.4 mmol/L (3.4-5.0); Sodium 140 mmol/L (137-145); Triglycerides 161 mg/dL (<150)
[2024-06-03 13:14] LABS: LDL Cholesterol Direct 53 mg/dL
--- OUTSIDE RECORDS SUMMARY | 2024-06-03 13:21 | XMS_ITS | Encounter Summary ---
Author Organization [facility] Address [address] [place] [address] Phone Care Team Providers Care Field Support Technician Name Role Phone Brianna Salamanca MD Primary Care Provider Keyshawn Stoll MD Unavailable José Miguel Haines MD Unavailable [phone] Claudine May MD Unavailable [phone] Mya Cooley NP Unavailable [phone] Encounter Details Date Type Department Care Team (Latest Contact Info) Description 08/24/2022 Orders Only [facility] Scanning, Provider Social History Tobacco Use Types Packs/Day Years Used Date Smoking Tobacco: Former Cigarettes 1.5 46.2 1 976 - 05/2021 Vaping Started: 05/22 21 Passive Smoke Exposure: Past Smokeless Tobacco: Never AUDIT-C Answer Date Recorded Q1: How often do you have a drink containing alcohol? Never 08/02/2022 Q2: How many drinks containi ng alcohol do you have on a typical day when you are drinking? Patient does not drink Q3: How often do you have si x or more drinks on one occasion? Never 08/02/2022 Personal Safety Answer Date Recorded Have you ever been in or are you currently in a harmful physical or emotional relationship or is someone making you feel afraid or unsafe? Denies 08/02/2022 Comments Unknown Sex and Gender Information Value Date Recorded Sex Assigned at Not on file Legal Sex Female 2:01 AM APPLICATIONS ENGINEER MANUFACTURING Gender Identity Not on file Sexual Orientation Not on file documented as of this encounter Plan of Treatment Not on file documented as of this encounter Procedures Procedure Name Priority Date/Time Associated Diagnosis Comments GI - RESULT 08/24/2022 SCAN - PATHOLOGY 08/24/2022 documented in this encounter Results * SCAN - PATHOLOGY (08/24/2022) us Provider Scanning Edited Result - Final * GI - RESULT (08/24/2022) Anatomical Region Laterality Modality Other us Provider Scanning Final Result documented in this encounter Visit Diagnoses Not on filedocumented in this encounter Care Teams Field Support Technician Relationship Specialty Start Date End Date Brianna Salamanca MD [address] [place] [address] PCP - General Family Medicine 05/23/22 Keyshawn Stoll MD [address] [facility], [address] [place] [address] Referring Physician Pulmonary Disease 08/22/22 José Miguel Haines MD [address] [facility]UL[facility], [address] [place] [address] Medical Oncologist/Ar Manager Hematology and Oncology 08/22/22 Claudine May MD [address] [place] [address] Radiation Oncologist Radiation Oncology 10/18/22 Mya Cooley NP [address] [place] [address] Nurse Practitioner Radiation Oncology 05/29/23 documented as of this encounter
--- OUTSIDE RECORDS SUMMARY | 2024-06-03 13:21 | XMS_ITS | Encounter Summary ---
Author Organization [facility] Address [address] [place] [address] Phone Care Team Providers Care Precipitation Equipment Tender Name Role Phone Parth Munoz MD Primary Care Provider [phone] Brianna Salamanca MD Primary Care Provider Keyshawn Stoll MD Unavailable José Miguel Haines MD Unavailable Claudine May MD Unavailable [phone] Mya Cooley NP Unavailable [phone] Encounter Details Date Type Department Care Team (Latest Contact Info) Description 03/15/2022 Orders Only [facility] Scanning, Provider Social History Tobacco Use Types Packs/Day Years Used Date Smoking Tobacco: Never Assessed Comments Unknown Sex and Gender Information Value Date Recorded Sex Assigned at Not on file Legal Sex Female 2:01 AM MARKETING DIRECTOR Gender Identity Not on file Sexual Orientation Not on file documented as of this encounter Plan of Treatment Not on file documented as of this encounter Procedures Procedure Name Priority Date/Time Associated Diagnosis Comments SCAN - RADIOLOGY/IMAGING 03/15/2022 documented in this encounter Results * SCAN - RADIOLOGY/IMAGING (03/15/2022) Anatomical Region Laterality Modality Other us Provider Scanning Edited Result - Final documented in this encounter Visit Diagnoses Not on filedocumented in this encounter Care Teams Precipitation Equipment Tender Relationship Specialty Start Date End Date Parth Munoz MD PCP - General 02/09/11 05/22/22 Brianna Salamanca MD [address] [place] [address] PCP - General Family Medicine 05/23/22 Keyshawn Stoll MD [address] [facility] IM [facility]UL[facility], [address] [place] [address] Referring Physician Pulmonary Disease 08/22/22 José Miguel Haines MD [address] DIV IM PUL[facility] AND C[facility], [facility] [address] [place] [address] Medical Oncologist/Patroller Hematology and Oncology 08/22/22 Claudine May MD [address] [place] [address] Radiation Oncologist Radiation Oncology 10/18/22 Mya Cooley NP [address] [place] [address] Nurse Practitioner Radiation Oncology 05/29/23 documented as of this encounter
--- OUTSIDE RECORDS SUMMARY | 2024-06-03 13:21 | XMS_ITS | Encounter Summary ---
Author Organization [facility] Address [address] [place] [address] Care Team Providers Care Ground Crew Chief Name Role Phone Parth Munoz MD Primary Care Provider Brianna Salamanca MD Primary Care Provider Keyshawn Stoll MD Unavailable [phone] José Miguel Haines MD Unavailable [phone] Claudine May MD Unavailable Mya Cooley NP Unavailable Encounter Details Date Type Department Care Team (Late st Contact Info) Description 05/17/2022 Telephone [facility] Interventional Pulmonology [address] [place] [address] Katja Baumann, RN Social History Tobacco Use Types Packs/Day Years Used Date Smoking Tobacco: Former Cigarettes Smokeless Tobacco: Never AUDIT-C Answer Date Recorded Q1: How often do you have a drink containing alcohol? Never 05/18/2022 Q2: How many drinks containi ng alcohol do you have on a typical day when you are drinking? Patient does not drink Q3: How often do you have si x or more drinks on one occasion? Never 05/18/2022 Comments Unknown Sex and Gender Information Value Date Recorded Sex Assigned at Not on file Legal Sex Female 2:01 AM CREDIT SPECIALIST Gender Identity Not on file Sexual Orientation Not on file documented as of this encounter Functional Status * Audit-C Score Answer Date of Assessment Author 0 05/18/2022 7:57 AM Luz Bang RN * Question Answer Date of Assessment Author Q1: How often do you have a drink containing alcohol? Never 05/18/2022 7:57 AM Tess Bang RN Q2: How many drinks containing alcohol do you have on a typical day when you are drinking? Patient does not drink 05/18/2022 7:57 AM Tess Bang RN Q3: How often do you have six or more drinks on one occasion? Never 05/18/2022 7:57 AM Tess Bang RN documented as of this encounter Nursing Notes * Katja Baumann RN - 05/17/2022 12:30 PM CDT Interventional Pulmonology: Bronchoscopy Pre-Appointment Call Called and spoke to patient on 05/17/2022 at 1230 in regards to the Bronchoscopy scheduled for tomorrow 05/18/22 at 0830. I asked the patient the following screening questions prior to the pre-procedure instructions: 1.Have you traveled outside the [place] in the last 6 months?No 2. Have you been exposed to anyone who is sick in the last 30 days?No 3. Have you been exposed to or tested positive for COVID-19 within the last 10 days?No 4.Have you tested positive for monkeypox within the last 28 days or are you waiting for a monkeypoxtest result? No 5. Are you having any of the following? None of these Pre-procedure instructions: The patient stated that they did receive their pre-procedure instructions in the mail, email, or Targazymehart. Instructed the patient to arrive at [facility] Admitting/Registration Office on [facility] on tomorrow 05/18/22 at 0730. 3. Instructed patient that if patient will be receiving sedation they will not be able to eat or drink anything after midnight on 05/17/2022 but may take sips of water with their AM medications (except blood thinner per discussion below). 4. Patient stated patient does not use oxygen at home. If the patient uses home oxygen, even if they only use oxygen during sleep periods, they are to bring enough home oxygen supply to get themselves to and from [facility]. 5. Patient stated that patient does use a CPAP or BIPAP device. Instructed patient, if they use a CPAP or BIPAP, to bring in their device or bring documentation of their CPAP/BIPAP settings with themto their appointment. 6. The patient will need a local tanker truck driver or will need to arrange their own transportation home after theirprocedure. Patient stated patient does have a ride home after procedure. Emphasized that departmental staff will confirm transportation prior to the procedure. Further emphasized that the patient will not be able to drive themselves home after their procedure if they receive any sedation and/or opioids. Instructed patient/family that if a transportation service is used for this appointment that the patient/family need to provide the Interventional Pulmonology staff with the name and the phone number of the transportation service used. 7. Patient confirmed that the patient does have some one who will stay with them for at least 24 hours post discharge. Emphasized that, for their safety, the patient may have to be admitted for 23 hours post procedure if they do not have some one who will stay with them for at least 24 hours post discharge. 8. The patient will need to bring a list of their current home medications including all herbal supplements and all non-prescription/over the counter medications. 9. Patient stated that patient does not take anticoagulants. If the patient stated they do take anticoagulants, the anticoagulant taken is none. Date of last dose taken: none 10. Patient stated that they are diabetic. If insulin dependent diabetic, the patient may take 1/2 of their PM insulin dose the evening prior to their procedure. If non-insulin dependent, they are tohold their oral diabetic medications the day of their procedure. The patient is also to check theirfinger stick blood glucose the morning of their procedure if they are diabetic. 11. Patient confirmed that the patient and their family are familiar on the location of the [facility] Admitting Office for pre- procedure registration and any lab work that may be ordered. Discussed that the patient is not to go to the [facility] for their appointment. Confirmed they are aware of what time to arrive at the [facility] Admitting Office. 12. I reviewed the following [facility] Visitor Policy that was updated 06/2021 with patient : A. Each patient is only allowed two visitors for an outpatient procedure/appointment. B. Visitors will be screened upon arrival to the hospital with the aforementioned coronavirus questions. Any yes answer to questions will result in the visitor being denied entrance to this facility. C. All visitors are expected to remain in the Surgical Registration and Waiting Area the entire time they are waiting on the patient and will not be allowed in the procedure area. D. All visitors are expected to follow posted hand hygiene protocols. E. Instructed patient that effective 07/09/19 all patients and visitors must wear a face covering upon entrance to [facility]. If you or your visitors do not have a face covering upon arrival, one will be provided during the screening process. F. Patient verbalized confirmation of visitor policy and verbalized understanding that failure to comply with aforementioned policy or if their visitor/family does not pass the coronavirus screening questions, the visitor/family will be asked to leave the hospital immediately. 12. Patient verbalized confirmation that they will call and notify us if they are having any fever, cough, shortness of breath, sore throat, lost of taste or smell, diarrhea, vomiting,or are waiting on a COVID test result between the time of this call and the time of their procedure. 13. Patient verbalized confirmation and understanding of above instructions & I answered all questions from the patient/family. 14. Call Ended 05/17/2022 documented in this encounter Plan of Treatment Not on file documented as of this encounter Visit Diagnoses Not on filedocumented in this encounter Care Teams Ground Crew Chief Relationship Specialty Start Date End Date Parth Munoz MD PCP - General 02/09/11 05/22/22 Brianna Salamanca MD [address] [address] PCP - General Family Medicine 05/23/22 Keyshawn Stoll MD [address] DIV IM PULMONARY AND CCM, [address] [place] [address] Referring Physician Pulmonary Disease 08/22/22 José Miguel Haines MD [address] DIV IM PULMONARY AND CCM, [address] [place] [address] Medical Oncologist/Resume Writer Hematology and Oncology 08/22/22 Claudine May MD [address] [place] [address] Radiation Oncologist Radiation Oncology 10/18/22 Mya Cooley NP [address] [place] [address] Nurse Practitioner Radiation Oncology 05/29/23 documented as of this encounter
--- OUTSIDE RECORDS SUMMARY | 2024-06-03 13:21 | XMS_ITS | Clinical Summary ---
Author Organization [facility] Address [address] [place] [address] Care Team Providers Care Seal Extrusion Operator Name Role Phone Rupinder Gómez APRN-REGIONAL VICE PRESIDENT LIFE SALES Primary Care Provider [phone] [facility],non-owned Affiliates and Associated Physician Practices is amultiple site organization consisting of ambulatory clinics and hospital sitesin [place], [place], [place] and [place]. This disclosure is being madepursuant to the Care Everywhere program and may not contain all information available regarding this patient. Last updated 17.[facility] Social History Tobacco Use Types Packs/Day Years Used Date Smoking Tobacco: Never Assessed Sex and Gender Information Value Date Recorded Sex Assigned at Not on file Gender Identity Not on file Sexual Orientation Not on file Plan of Treatment Health Maintenance Due Date Last Done Comments COLOGUARD (AGES 45-75) - COLON CA SCREENING 1960 COLON MONITORING 1960 COLONOSCOPY - COLON CA SCREENING 1960 CT COLONOGRAPHY - COLON CA SCREENING 1960 Colorectal Cancer Screening 1960 FIT - COLON CA SCREENING 1960 FLEX SIG - COLON CA SCREENING 1960 LIPID TESTING 1960 PAP SMEAR 1960 HIV SCREENING 02/06/1975 HEPATITIS C SCREENING 02/02/1978 DTAP/TDAP/TD VACCINES (1 - Tdap) 02/06/1979 PNEUMOCOCCAL VACCINE 50+ (1 of 1 - PCV) 02/06/2010 ZOSTER VACCINE (1 of 2) 02/06/2010 MAMMOGRAM 03/11/2022 03/11/2020, 03/13/2018 COVID-19 VACCINE ( season) 2023 09/07/2021, 01/26/2021, 06/19/2020, Additional history exists INFLUENZA VACCINE (#1) 2023 2, 01/12/2021, 10/24/2019, Additional history exists DEPRESSION SCREENING 03/05/2024 Respiratory Syncytial Virus (RSV) Vaccine Pt: or over 60 yrs (1 - 1-dose 75+ series) 02/06/2035 HEPATITIS B VACCINE Aged Out No longe r eligible based on patient's age to complete this topic HIB VACCINE Aged Out No longer eligi ble based on patient's age to complete this topic HPV VACCINE Aged Out No longer eligi ble based on patient's age to complete this topic MENINGOCOCCAL (Group B) VACCINE SHARED DECISION-MAKING Aged Out No longer eligible based on patient's age to complete this topic MENINGOCOCCAL GROUPS A/C/Y/W VACCINE Aged Out No longer eligible based on patient's age to complete this topic PNEUMOCOCCAL VACCINE Aged Out No long er eligible based on patient's age to complete this topic Care Teams Seal Extrusion Operator Relationship Specialty Start Date End Date Rupinder Gómez APRN-CNP [address] [place] [address] PCP - General Nurse Practitioner Family 12/05/23
--- OUTSIDE RECORDS SUMMARY | 2024-06-03 13:21 | XMS_ITS | Clinical Summary ---
Author Organization [facility] Address [address] [place] [id number] Care Team Providers Care Fig Caprifier Name Role Phone Brianna Salamanca MD Primary Care Provider Keyshawn Stoll MD Unavailable [phone] José Miguel Haines MD Unavailable Claudine Mya MD Unavailable [phone] Mya Cooley NP Unavailable Allergies Active Allergy Reactions Criticality Noted Date Comments Penicillins Rash Medium 11/22/2015 Medications atorvastatin (LIPITOR) 80 mg tabletIndication s:hyperlipidemia Take 1 tablet (80 mg total) by mouth every morning 2 Active Accu-Chek Guide test strips strip 3 Active lisinopril-hydro CHLOROthiazide (ZESTORETIC) 20-12.5 mg per tabletIndication s:hypertension Take 1 tablet by mouth every morning 2 Active Anoro Ellipta 62.5-25 mcg/actuation blister with deviceIndication s:Bronchospasm Prevention with COPD Inhale 1 puff every morning 3 Active omeprazole (PriLOSEC) 40 mg capsuleIndicatio ns:acid reflux Take 1 capsule (40 mg total) by mouth every morning 2 Active Janumet XR 50-1,000 mg tablet, ER multiphase 24 hrIndications:ty pe 2 diabetes mellitus Take 1 tablet by mouth 2 (two) times a day 3 Active solifenacin (VESIcare) 10 mg tabletIndication s:Urinary Urgency Take 1 tablet (10 mg total) by mouth every morning 3 Active gabapentin (NEURONTIN) 300 mg capsuleIndicatio ns:Neuropathic Pain Take 1 capsule (300 mg total) by mouth 3 (three) times a day 1 in the morning, 1 in afternoon, and 2 at night 3 Active dicyclomine (BENTYL) 10 mg capsuleIndicatio ns:diarrhea Take 1 capsule (10 mg total) by mouth 2 (two) times a day 3 Active albuterol HFA (PROVENTIL HFA,VENTOLIN HFA,PROAIR HFA) 90 mcg/actuation inhalerIndicatio ns:Chronic Obstructive Pulmonary Disease Inhale 2 puffs as needed for wheezing or shortness of breath 3 Active cyclobenzaprine (FLEXERIL) 10 mg tabletIndication s:Muscle Spasm Take 1 tablet (10 mg total) by mouth as needed for muscle spasms Active azelastine (ASTELIN) 137 mcg (0.1 %) nasal spray Administer 1 spray into each nostril as needed for allergies 3 Active Restasis 0.05 % ophthalmic emulsionIndicati ons:dry eye Administer 1 drop into both eyes 2 (two) times a day PRN during day 3 Active docosahexaenoic acid-epa 120-180 mg capsuleIndicatio ns:supplement Take 1,000 mg by mouth 2 (two) times a day 9 Active estrogens, conjugated, (Premarin) vaginal creamIndications :Atrophy of Vulva Insert 0.5 g into the vagina as needed 2 Active cholecalciferol, vitamin D3, (VITAMIN D3 ORAL)Indications :supplement Take 1 tablet by mouth every morning Active ascorbic acid (VITAMIN C ORAL)Indications :supplement Take 1 tablet by mouth every morning Active ferrous sulfate (IRON ORAL)Indications :supplement Take 1 tablet by mouth every morning Active vitamin B complex capsule Take 1 capsule by mouth daily Active azithromycin (ZITHROMAX) 250 mg tablet TAKE 2 TABLETS BY MOUTH TODAY, THEN TAKE 1 TABLET DAILY FOR 4 DAYS DIRECTED 4 Active doxycycline 100 mg tablet 100 MG ORALLY TWICE A DAY FOR 7 DAYS 4 Active ciprofloxacin (CIPRO) 500 mg tablet 500 MG ORALLY EVERY 12 HOURS 4 Active cefdinir (OMNICEF) 300 mg capsule 300 MG ORALLY EVERY 12 HOURS 3 Active EZFE 200 200 mg iron capsule Take 1 tablet by mouth daily 3 Active metoprolol tartrate (LOPRESSOR) 25 mg immediate release tablet 4 Active predniSONE (DELTASONE) 10 mg tablet PLEASE SEE ATTACHED FOR DETAILED DIRECTIONS 4 Active predniSONE (DELTASONE) 20 mg tablet Take 1 tablet (20 mg) by mouth daily 4 Active albuterol 2.5 mg /3 mL (0.083 %) nebulizer solution 2.5 MG (3 ML) INHALED EVERY 4 - 6 HOURS NEEDED FOR SHORTNESS OF BREATH OR WHEEZING 4 Active traMADoL (ULTRAM) 50 mg tablet Take by mouth every 6 (six) hours as needed 4 Active predniSONE (DELTASONE) 5 mg tablet 4 Active glipiZIDE (GLUCOTROL) 10 mg tablet 10 MG ORALLY DAILY 4 Active glipiZIDE (GLUCOTROL) 5 mg tablet TAKE 1 TABLET 5 MG ORALLY DAILY 4 Active levalbuterol (XOPENEX HFA) 45 mcg/actuation inhaler INHALE 2 PUFFS EVERY 6 HOURS NEEDED FOR WHEEZE OR FOR SHORTNESS OF BREATH 4 Active metFORMIN XR (GLUCOPHAGE XR) 500 mg 24 hr tablet TAKE 1 TABLET ORALLY DAILY PATIENT TO TAKE WITH MEALS 4 Active Januvia 25 mg tablet Take 1 tablet (25 mg total) by mouth daily 4 Active fish oil-dha-epa 1,200-144-216 mg capsule Take by mouth Active diclofenac sodium (VOLTAREN) 1 % gel Apply topically 4 (four) times a day Active Active Problems Problem Noted Date Diagnosed Date Malignant neoplasm of lower lobe of left lung Cancer Staging:Clinical stage from 04/11/2022:Stage IA2(cT1b, cN0, cM0) - Signed by Marcio Husain MD on 09/06/2022 Primary cancer of right lower lobe of lung 08/24 Cancer Staging:Clinical stage from 08/02/2022:Stage IA2(cT1b, cN0, cM0) - Signed by Marcio Husain MD on 09/05/2022 LAD (lymphadenopathy) 05/02/2022 Diarrhea due to malabsorption 07/06/2021 Liver fibrosis 07/06/2021 Hot flashes 06/07/2020 Vaginal dryness, menopausal 06/07/2020 B12 deficiency 02/20/2019 Adenomatous polyps 03/11/2018 Overview (01/10/2023): Colonoscopy 11/02/17 ([facility]). Repeat in 3 years. Multiple lung nodules 03/07/2018 Overview (01/10/2023): 12/16/18 CT Chest Stable - Repeat annually Glaucoma suspect of both eyes 11/30/2016 Nonalcoholic fatty liver disease 11/08/2016 Nicotine dependence, cigarettes, uncomplicated 0 06/26/2016 Sensorineural hearing loss (SNHL) of both ears 0 06/26/2016 Combined form of senile cataract 12/09/2015 Myopia 12/09/2015 Type 2 diabetes mellitus without retinopathy 08/2015 Centrilobular emphysema 11/22/2015 Mixed diabetic hyperlipidemi a associated with type 2 diabetes mellitus 11/22/2015 Gastroesophageal reflux disease with esophagitis 11/22/2015 Hypertension complicating diabetes 11/22/2015 OAB (overactive bladder) 11/22/2015 Obstructive sleep apnea syndrome 11/22/2015 Overview (01/10/2023): 08/04/10 Mild: AHI 6.6, O2 felton 89%. CPAP 10cm, nasal mask 08/04/10 Mild: AHI 6.6, O2 felton 89%. CPAP 10cm, nasal mask Last Assessment & Plan: Relevant Hx: Course: Daily Update: Today's Plan: Encounters Date Type Department Care Team Description 03/11/2024 10:20 AM OR DIRECTOR Office Visit [facility] Radiation Oncology [address] [place] [address] Mya Cooley NP Malignant neoplasm of lower lobe of left lung (HCC) [C34.32] (Primary Dx) 03/11/2024 9:13 AM OR DIRECTOR - 03/11/2024 11:59 PM OR DIRECTOR Hospital Encounter [facility] [address] [place] [address] Primary cancer of right lower lobe of lung (HCC) [C34.31]; Malignant neoplasm of lower lobe of left lung (HCC) [C34.32] Discharge Disposition: Discharge to home or self care from Last 3 Months Immunizations Immunization Administration Dates Next Due Influenza, Quadrivalent, Spl it, Intramuscular 01/12/2021,12/26/2018,11/30/2017,02/13 Influenza, Quadrivalent, Spl it, Pediatric, Preservative Free, Intramuscular 10/24/2019 Influenza, Trivalent, Cell Culture-based MDCK, Preservative Free, Antibiotic Free, Intramuscular 11/24/2021 Influenza, Trivalent, Preser vative Free, Intramuscular 12/06/2015,01/26/2014,03/19/2012 Moderna SARS-CoV-2 Monovalen t Vaccination (12+ YRS) 09/07/2021,01/26/2021,06/19/2020,05/22 Pneumococcal Conjugate PCV 13 12/06/2015 Pneumococcal Polysaccharide PPV23 03/25/2018 Tdap 11/22/2015 ZOSTER Recombinant 02/13/2020,12/15/2019 Surgical History Surgery Date Site/Laterality Comments APPENDECTOMY 03/05/2005 - 03/04/2006 CHOLECYSTECTOMY 03/05/1997 - 03/04/1998 EYE SURGERY Bilateral 01/2017 and 02/2017 HIP FRACTURE SURGERY 03/05/1986 - 03/04/1987 Right pins placed, 1987, screws removed ROTATOR CUFF REPAIR Bilateral right 2014, left 2020 COLONOSCOPY 03/05/2021 - 03/04/2022 BIOPSY 05/03/2022 - 06/02/2022 LIVER BIOPSY 03/05/2021 - 03/04/2022 Medical History Medical History Date Comments COPD (chronic obstructive pulmonary disease) (HC C) Diabetes mellitus (HCC) Hypertension Sleep apnea Wears CPAP Primary cancer of right lower lobe of lung (HCC) 08/24/2022 Mixed diabetic hyperlipidemi a associated with type 2 diabetes mellitus (HCC) 11/22/2015 Family History Medical History Relation Name Comments Emphysema Father Hypertension Father Lung disease Father Osteoarthritis Father Colon cancer Maternal Grandmother Asthma Mother Diabetes Mother Hypertension Mother Cancer Paternal Grandfather Asthma Sister Hypertension Sister Stroke Sister Anesthesia problems Neg Hx Relation Name Status Comments Father Maternal Grandmother Mother Paternal Grandfather Sister Social History Tobacco Use Types Packs/Day Years Used Date Smoking Tobacco: Former Cigarettes 1.5 46.2 1 976 - 05/2021 Vaping Started: 05/22 21 Passive Smoke Exposure: Past Smokeless Tobacco: Never Tobacco Cessation:Counseling Given: No AUDIT-C Answer Date Recorded Q1: How often [...] on file Legal Sex Female 2:01 AM OR DIRECTOR Gender Identity Not on file Sexual Orientation Not on file Obstetrics History Last Filed Vital Signs Vital Sign Reading Time Taken Comments Blood Pressure 116/73 09/07/2022 3:31 PM CDT Pulse 77 09/07/2022 3:31 PM CDT Temperature 36.4 C (97.5 F) 09/07/2022 3:31 PM CDT Respiratory Rate 18 09/07/2022 3:31 PM CDT Oxygen Saturation 100% 09/07/2022 3:31 PM CDT Inhaled Oxygen Concentration - - Weight 91.9 kg (202 lb 9.6 oz) 03/11/2024 9:58 A M OR DIRECTOR Height 167.6 cm (5' 6 ) 03/11/2024 9:58 AM OR DIRECTOR Body Mass Index 32.7 03/11/2024 9:58 AM OR DIRECTOR Plan of Treatment Health Maintenance Due Date Last Done Comments Albumin Creatinine Ratio, Urine 1960 Cervical Cancer Screening 1960 Colon Cancer Screening-Colonoscopy 1960 Depression Screening 1960 Hemoglobin A1C 1960 Hepatitis C Screening 1960 Dilated Eye Exam 1960 Foot Exam 1960 Hepatitis B Screening 02/06/1978 Regular Well Visit/Exam 18-64 02/06/1978 Breast Cancer Screening-Mammogram 03/11/2021 03/11/2020, 03/11/2020, 03/13/2018 Lipid Panel 07/06/2022 07/06/2021 Pneumococcal vaccine <65 (3 of 3 - PCV20 or PCV21) 03/25/2023 03/25/2018, 12/06/2015 eGFR 09/08/2023 09/07/2022, 08/24/2022 Covid-19 Vaccine (6 - 2023-2 5 season) 2023 12/31/2021, 09/07/2021, 01/26/2021, Additional history exists Influenza Vaccine (Season Ended) 2024 11/24/2021, 01/12/2021, 10/24/2019, Additional history exists DTaP/Tdap/Td Vaccine (2 - Td or Tdap) 11/21/2025 11/22/2015 Zoster Vaccine Completed 02/13/2020, 12/15/2019 Procedures Procedure Name Priority Date/Time Associated Diagnosis Comments CT CHEST WO CONTRAST Routine 03/11/2024 9:39 AM OR DIRECTOR Primary cancer of right lower lobe of lung (HCC) [C34.31] Malignant neoplasm of lower lobe of left lung (HCC) [C34.32] EGFR STAT 09/07/2022 3:20 PM CDT Malignant neoplasm of lung, unspecified laterality, unspecified part of lung (HCC) from Last 3 Months or Most Recently Relevant to Health Maintenance Results * CT Chest WO Contrast (03/11/2024 9:39 AM OR DIRECTOR) Anatomical Region Laterality Modality Body N/A Computed Tomogra phy 03/11/2024 10:0 9 AM OR DIRECTOR Impressions 03/11/2024 10:09 AM OR DIRECTOR Stable treatment changes in both lower lobes and the lingula. No evidence of metastatic disease in chest. Electronically signed by: Tian Golden MD, PHD Narrative 03/11/2024 10:09 AM OR DIRECTOR EXAMINATION: Computed tomography of the chest without intravenous contrast HISTORY: Right lower lobe lung cancer. Follow-up radiation. TECHNIQUE: Transaxial computed tomographic images of the chest were obtained without intravenous contrast according to the standard protocol. COMPARISON: 12/25/2023 FINDINGS: Heart size is stable at the upper limits of normal. There is no pericardial effusion. Extensive mitral annular calcifications are present. Calcified coronary artery disease is noted. Thoracic aorta is atherosclerotic but normal in caliber. Main pulmonary artery is at the upper limits of normal. No supraclavicular or axillary lymphadenopathy. No pathologically enlarged mediastinal or hilar lymph nodes. No pleural effusion or pneumothorax. Upper lobe predominant emphysema is noted. No significant change in bandlike consolidation and architectural distortion in the right lower lobe, left lower lobe and partially extending into the lingula, compatible with post treatment change. Small aury-fissural nodules again seen in the right lung at table position -110.2 in keeping with a benign intrapulmonary lymph node. Stable 5 mm nodule in the left lower lobe at table position -84.2). These are unchanged back to 03/15/2022 and likely benign. No new or enlarging pulmonary nodule. Limited images of the upper abdomen demonstrate unchanged nodularity of the hepatic surface, which could represent fibrosis. Gallbladder surgically absent. No suspicious lytic or blastic lesion. Procedure Note Tian Golden MD PhD - 03/11/2024 EXAMINATION: Computed tomography of the chest without intravenous contrast HISTORY: Right lower lobe lung cancer. Follow-up radiation. TECHNIQUE: Transaxial computed tomographic images of the chest were obtained without intravenous contrast according to the standard protocol. COMPARISON: 12/25/2023 FINDINGS: Heart size is stable at the upper limits of normal. There is no pericardial effusion. Extensive mitral annular calcifications are present. Calcified coronary artery disease is noted. Thoracic aorta is atherosclerotic but normal in caliber. Main pulmonary artery is at the upper limits of normal. No supraclavicular or axillary lymphadenopathy. No pathologically enlarged mediastinal or hilar lymph nodes. No pleural effusion or pneumothorax. Upper lobe predominant emphysema is noted. No significant change in bandlike consolidation and architectural distortion in the right lower lobe, left lower lobe and partially extending into the lingula, compatible with post treatment change. Small aury-fissural nodules again seen in the right lung at table position -110.2 in keeping with a benign intrapulmonary lymph node. Stable 5 mm nodule in the left lower lobe at table position -84.2). These are unchanged back to 03/15/2022 and likely benign. No new or enlarging pulmonary nodule. Limited images of the upper abdomen demonstrate unchanged nodularity of the hepatic surface, which could represent fibrosis. Gallbladder surgically absent. No suspicious lytic or blastic lesion. IMPRESSION: Stable treatment changes in both lower lobes and the lingula. No evidence of metastatic disease in chest. Electronically signed by: Tian Golden MD, PHD Mya Cooley NP IMG CT PROCEDURES Final Result * (ABNORMAL) eGFR (09/07/2022 3:20 PM CDT) eGFR 70(L) 90 - 130 mL/min/1. 73 m2 [facility] Comment: Interpretive Data Reference Interval Normal >/= 90 mL/min/1.73m2 Mildly decreased* 60 - 89 mL/min/1.73m2 Mildly to moderately decreased 45 - 59 mL/min/1.73m2 Moderately to severely decreased 30 - 44 mL/min/1.73m2 Severely decreased 15 - 29 mL/min/1.73m2 Kidney Failure < 15 mL/min/1.73m2 *Relative to young adult level Estimated glomerular filtration rate is determined by the 2020 CKD-EPI equation recommended by the National Kidney Foundation (A Unifying Approach to GFR Estimation: Recommendations of the NKF-ASK Task Force on Reassessing the Inclusion of Race in Diagnosing Kidney Disease, JASN 2020). The CKD-EPI equation should not be used for patients with unstable renal function and has not been validated in children and those over 70. Current interpretive data was last reviewed 2021. Testing performed by: [facility], [address] [place] [phone] Blood 09/07/2022 3:20 PM CDT 09/07/2022 3:24 PM CDT José Miguel Haines MD LAB BLOOD ORDERABLES Final Result [facility] Department [place] [address] from Last 3 Months or Most Recently Relevant to Health Maintenance Insurance ANTHEM ACCESS ANTHEM ACCESS Care Teams Fig Caprifier Relationship Specialty Start Date End Date Brianna Salamanca MD [address] [facility] [address] [place], [place] [id number] PCP - General Family Medicine 05/23/22 Keyshawn Stoll MD [address] DIV IM PUL[facility], [facility] [address] [place] [address] Referring Physician Pulmonary Disease 08/22/22 José Miguel Haines MD [address] DIV [facility]UL[facility], [facility] [address] [place] [address] Medical Oncologist/Gym Instructor Hematology and Oncology 08/22/22 Claudine May MD [address] [place] [address] Radiation Oncologist Radiation Oncology 10/18/22 Mya Cooley NP [address] [place] [address] Nurse Practitioner Radiation Oncology 05/29/23
--- OUTSIDE RECORDS SUMMARY | 2024-06-03 13:21 | XMS_ITS | Referral Summary ---
Author Organization [facility] Address [address] [place] [address] Care Team Providers Care Insect Control Inspector Name Role Phone Brianna Salamanca MD Primary Care Provider Keyshawn Stoll MD Unavailable José Miguel Haines MD Unavailable [phone] Claudine May MD Unavailable [phone] Mya Cooley NP Unavailable Encounters Date Type Department Care Team Description 03/11/2024 10:20 AM MANAGER HELPDESK Office Visit [facility] Radiation Oncology [address] [place] [address] Mya Cooley, NEHA Malignant neoplasm of lower lobe of left lung (HCC) [C34.32] (Primary Dx) 03/11/2024 9:13 AM MANAGER HELPDESK - 03/11/2024 11:59 PM MANAGER HELPDESK Hospital Encounter [facility] [address] [place] [address] Primary cancer of right lower lobe of lung (HCC) [C34.31]; Malignant neoplasm of lower lobe of left lung (HCC) [C34.32] Discharge Disposition: Discharge to home or self care from Last 3 Months Allergies Active Allergy Reactions Criticality Noted Date [...] Adenomatous polyps 03/11/2018 Overview (01/10/2023): Colonoscopy 11/02/17 (Nannette). Repeat in 3 years. Multiple lung nodules [...] Relevant Hx: Course: Daily Update: Today's Plan: Immunizations Immunization Administration Dates Next Due Influenza, Quadrivalent, Spl it, Intramuscular 01/12/2021,12/26/2018,11/30/2017,02/13 Influenza, Quadrivalent, Spl it, Pediatric, Preservative Free, Intramuscular 10/24/2019 Influenza, Trivalent, Cell Culture-based MDCK, Preservative Free, Antibiotic Free, Intramuscular 11/24/2021 Influenza, Trivalent, Preser vative Free, Intramuscular 12/06/2015,01/26/2014,03/19/2012 Moderna SARS-CoV-2 Monovalen t Vaccination (12+ YRS) 09/07/2021,01/26/2021,06/19/2020,05/22 Pneumococcal Conjugate PCV 13 12/06/2015 Pneumococcal Polysaccharide PPV23 03/25/2018 Tdap 11/22/2015 ZOSTER Recombinant 02/13/2020,12/15/2019 Social History Tobacco Use Types Packs/Day Years [...] on file Legal Sex Female 2:01 AM MANAGER HELPDESK Gender Identity Not on file Sexual Orientation Not on file Last Filed Vital Signs Vital Sign Reading Time Taken Comments Blood Pressure 116/73 09/07/2022 3:31 PM CDT Pulse 77 09/07/2022 3:31 PM CDT Temperature 36.4 C (97.5 F) 09/07/2022 3:31 PM CDT Respiratory Rate 18 09/07/2022 3:31 PM CDT Oxygen Saturation 100% 09/07/2022 3:31 PM CDT Inhaled Oxygen Concentration - - Weight 91.9 kg (202 lb 9.6 oz) 03/11/2024 9:58 A M MANAGER HELPDESK Height 167.6 cm (5' 6 ) 03/11/2024 9:58 AM MANAGER HELPDESK Body Mass Index 32.7 03/11/2024 9:58 AM MANAGER HELPDESK Plan of Treatment Not on file Procedures Procedure Name Priority Date/Time Associated Diagnosis Comments CT CHEST WO CONTRAST Routine 03/11/2024 9:39 AM MANAGER HELPDESK Primary cancer of right lower lobe of lung (HCC) [C34.31] Malignant neoplasm of lower lobe of left lung (HCC) [C34.32] EGFR STAT 09/07/2022 3:20 PM CDT Malignant neoplasm of lung, unspecified laterality, unspecified part of lung (HCC) from Last 3 Months or Most Recently Relevant to Health Maintenance Results * CT Chest WO Contrast (03/11/2024 9:39 AM MANAGER HELPDESK) Anatomical Region Laterality Modality Body N/A Computed Tomogra phy 03/11/2024 10:0 9 AM MANAGER HELPDESK Impressions 03/11/2024 10:09 AM MANAGER HELPDESK Stable treatment changes in both lower lobes and the lingula. No evidence of metastatic disease in chest. Electronically signed by: Tian Golden MD, PHD Narrative 03/11/2024 10:09 AM MANAGER HELPDESK EXAMINATION: Computed tomography of the chest without [...] Electronically signed by: Tian Golden MD, PHD us Mya Cooley NP IMG CT PROCEDURES Final Result * (ABNORMAL) eGFR (09/07/2022 3:20 PM CDT) eGFR 70(L) 90 - 130 mL/min/1. 73 m2 [facility] Comment: Interpretive Data Reference Interval Normal >/= [...] was last reviewed 2021. Testing performed by: [facility], [address] [place] [id number] Blood 09/07/2022 3:20 PM CDT 09/07/2022 3:24 PM CDT us José iMguel Haines MD LAB BLOOD ORDERABLES Final Result [facility] Department [place] [address] from Last 3 Months or Most Recently Relevant to Health Maintenance Insurance ANTHEM ACCESS ANTHEM ACCESS Care Teams Insect Control Inspector Relationship Specialty Start Date End Date Brianna Salamanca MD [address] [place] [address] PCP - General Family Medicine 05/23/22 Keyshawn Stoll MD [address] [facility] [address] DIV IM PULMONARY AND CCM, [address] [place] [address] Referring Physician Pulmonary Disease 08/22/22 José Miguel Haines MD [address] DIV IM PULMONARY AND CCM, [address] [place] [address] Medical Oncologist/Flaking Roll Operator Hematology and Oncology 08/22/22 Claudine May MD [address] [place] [address] Radiation Oncologist Radiation Oncology 10/18/22 Mya Cooley NP [address] [facility] [address] [place] [address] Nurse Practitioner Radiation Oncology 05/29/23
--- OUTSIDE RECORDS SUMMARY | 2024-06-03 13:21 | XMS_ITS | Encounter Summary ---
Author Organization [facility] Address [address] [place] [address] Phone Care Team Providers Care Automotive Sales Associate Name Role Phone Brianna Salamanca MD Primary Care Provider Keyshawn Stoll MD Unavailable José Miguel Haines MD Unavailable [phone] Claudine May MD Unavailable [phone] Mya Cooley NP Unavailable [phone] Encounter Details Date Type Department Care Team (Latest Contact Info) Description 08/29/2022 Orders Only [facility] Scanning, Provider Social History Tobacco Use Types Packs/Day Years Used Date Smoking Tobacco: Former Cigarettes 1.5 46.2 1 976 - 05/2021 Vaping Started: 05/22 22 Passive Smoke Exposure: Past Smokeless Tobacco: Never [...] on file Legal Sex Female 2:01 AM DIRECT CARE STAFFER Gender Identity Not on file Sexual Orientation Not on file documented as of this encounter Plan of Treatment Not on file documented as of this encounter Procedures Procedure Name Priority Date/Time Associated Diagnosis Comments GI - RESULT 08/29/2022 9:20 AM CDT documented in this encounter Results * GI - RESULT (08/29/2022 9:20 AM CDT) Anatomical Region Laterality Modality Other us Provider Scanning Edited Result - Final documented in this encounter Visit Diagnoses Not on filedocumented in this encounter Care Teams Automotive Sales Associate Relationship Specialty Start Date End Date Brianna Salamanca MD [address] [place] [address] PCP - General Family Medicine 05/23/22 Keyshawn Stoll MD [address] DIV IM PULMONARY AND CCM, [address] [place] [address] Referring Physician Pulmonary Disease 08/22/22 José Miguel Haines MD [address] DIV IM PULMONARY AND CCM, [address] [place] [address] Medical Oncologist/Grants Administrator Hematology and Oncology 08/22/22 Claudine May MD [address] [place] [address] Radiation Oncologist Radiation Oncology 10/18/22 Mya Cooley NP [address] [place] [address] Nurse Practitioner Radiation Oncology 05/29/23 documented as of this encounter
--- OUTSIDE RECORDS SUMMARY | 2024-06-03 13:21 | XMS_ITS | Encounter Summary ---
Author Organization [facility] Address [address] [place] [address] Care Team Providers Care Emergency Specialist Name Role Phone Parth Munoz MD Primary Care Provider [phone] Brianna Salamanca MD Primary Care Provider Keyshawn Stoll MD Unavailable José Miguel Haines MD Unavailable [phone] Claudine May MD Unavailable Mya Cooley NP Unavailable Encounter Details Date Type Department Care Team (Late st Contact Info) Description 05/17/2022 Telephone [facility] Interventional Pulmonology [address] [place] [address] Katja Baumann, RN Social History Tobacco Use [...] on file 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 Gender Identity Not on file Sexual Orientation [...] Bang RN documented as of this encounter Plan of Treatment Not on file documented as of this encounter Visit Diagnoses Not on filedocumented in this encounter Care Teams Emergency Specialist Relationship Specialty Start Date End Date Parth Munoz MD PCP - General 02/09/11 05/22/22 Brianna Salamanca MD [address] [place] [address] PCP - General Family Medicine 05/23/22 Keyshawn Stoll MD [address] DIV IM PULMONARY AND CCM, [address] [address] Referring Physician Pulmonary Disease 08/22/22 José Miguel Haines MD [address] DIV IM PULMONARY AND CCM, [facility] [address] [place] [address] Medical Oncologist/Preventive Medicine Specialist Hematology and Oncology 08/22/22 Claudine May MD [address] [place] [address] Radiation Oncologist Radiation Oncology 10/18/22 Mya Cooley NP [address] [facility] [address] [place] [address] Nurse Practitioner Radiation Oncology 05/29/23 documented as of this encounter
--- OUTSIDE RECORDS SUMMARY | 2024-06-03 13:21 | XMS_ITS ---
Author Organization [facility] Address [address] [place] [address] Care Team Providers Care Gravity Meter Operator Name Role Phone Brianna Salamanca MD Primary Care Provider Keyshawn Stoll MD Unavailable José Miguel Haines MD Unavailable [phone] Claudine Mya MD Unavailable Mya Cooley NP Unavailable Active Problems Problem Noted Date Diagnosed Date [...] Relevant Hx: Course: Daily Update: Today's Plan: Current Treatment and Therapy Plans No current plan information found. Past Treatment and Therapy Plans No past plan information found. Radiation Treatments * Course [id number] 10/03/2022 - 10/09/2022 Treatment Period Energy Fraction Dose Fractions Total Dose Plans Planned SBRT LLL LUNG 10/03/2022 - 10/09/2022 1,100 5 / 5,500 SBRT RLL LUNG 10/03/2022 - 10/09/2022 1,100 5 / 5,500 Reference Points Delivered PTV_LLL 10/03/2022 - 10/09/2022 5,500 PTV_RLL 10/03/2022 - 10/09/2022 5,500 Lifetime Dose Tracking * Chemical Lifetime Dose Automatic Entry Manual Entr y Fluoro Time 0.469 minutes 0.469 minutes 0 minutes Air kerma at the reference point (Ka,r) 660.01 mGy 6 60.01 mGy 0 mGy DLP 2,437 mGycm 2,437 mGycm 0 mGycm
--- OUTSIDE RECORDS SUMMARY | 2024-06-03 13:21 | XMS_ITS | Encounter Summary ---
Author Organization [facility] Address [address] [place] [address] Phone Care Team Providers Care Press Set Up Name Role Phone Parth Munoz MD Primary Care Provider [phone] Brianna Salamanca MD Primary Care Provider Keyshawn Stoll MD Unavailable [phone] José Miguel Haines MD Unavailable [phone] Claudine May MD Unavailable [phone] Mya Cooley NP Unavailable [phone] Encounter Details Date Type Department Care Team (Latest Contact Info) Description 10/17/2021 Orders Only [facility] Scanning, Provider Social History Tobacco Use Types Packs/Day Years Used Date Smoking Tobacco: Never Assessed Comments Unknown Sex and Gender Information Value Date Recorded Sex Assigned at Not on file 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 Gender Identity Not on file Sexual Orientation Not on file documented as of this encounter Plan of Treatment Not on file documented as of this encounter Procedures Procedure Name Priority Date/Time Associated Diagnosis Comments SCAN - PATHOLOGY 10/17/2021 SCAN - LABS 10/17/2021 documented in this encounter Results * SCAN - PATHOLOGY (10/17/2021) Provider Scanning Edited Result - Final * SCAN - LABS (10/17/2021) us Provider Scanning Final Result documented in this encounter Visit Diagnoses Not on filedocumented in this encounter Care Teams Press Set Up Relationship Specialty Start Date End Date Parth Munoz MD PCP - General 02/09/11 05/22/22 Brianna Salamanca MD [address] [place] [address] PCP - General Family Medicine 05/23/22 Keyshawn Stoll MD [address] DIV IM PULMONARY AND CCM, [address] [place] [address] Referring Physician Pulmonary Disease 08/22/22 José Miguel Haines MD [address] DIV IM PULMONARY AND CCM, [address] [place] [address] Medical Oncologist/Dev Technical Mgr Hematology and Oncology 08/22/22 Claudine May MD [address] [place] [address] Radiation Oncologist Radiation Oncology 10/18/22 Mya Cooley NP [address] [place] [address] Nurse Practitioner Radiation Oncology 05/29/23 documented as of this encounter
[2024-06-03 13:31] LABS: Thyroid Stimulating Hormone 0.957 uIU/mL (0.465-4.680)
[2024-06-03 13:50] LABS: Hemoglobin A1C 6.1 % (<5.7)
[2024-06-03 16:49] LABS: Add Urine Microscopic? YES; Appearance Urine Clear (Clear); Bacteria Urine None Seen /hpf; Bilirubin Urine Negative (Negative); Blood Urine Negative (Negative); Color Urine Yellow (Yellow); Glucose Urine UA Negative (Negative); Ketones Urine Negative (Negative); Leukocyte Esterase Ur 1+ LEU/UL (Negative); Nitrate Urine Negative (Negative); Non Pathogenic Casts 0-2; Protein Urine Negative (Negative); RBC Urine 0-2 /hpf (0-2); Specific Grav Ur 1.019 (1.001-1.035); Squamous Epithelial Cell Urine Occasional /hpf (Few); pH Urine 5.5 (5.0-9.0)
[2024-06-03 16:56] LABS: Creatinine Urine 133.2 mg/dL
[2024-06-03 17:00] LABS: MALB Creatinine Ratio 7.8 mg/g (0-30); Microalbumin Urine Random 10.4 mg/L (0-16.7)
== END 2024-06-03 12:25 | disposition home or self-care (01) ==
LOC: ANHLAB 12:27
PROVIDERS: PCP Family Medicine; Visit Provider Family Medicine
DX: Z00.00 Encounter for general adult medical examination without abnormal findings (principal); I10 Essential (primary) hypertension; E78.5 Hyperlipidemia, unspecified; E11.40 Type 2 diabetes mellitus with diabetic neuropathy, unspecified; R53.83 Other fatigue
CPT/HCPCS: 36415; 80053; 80061; 81001; 82043; 83036; 84443; 85027

== ENCOUNTER 2024-08-08 14:26 | Outpatient (CLI) | payer BC, SELFPAY ==
--- NOTE | ~2024-08-08 | MR_ITS ---
EXAMINATION: MR knee RT wo con DATE: 08/08/2024 14:55 INDICATION: Right knee pain TECHNIQUE: Magnetic resonance imaging (MRI) of the right knee was performed without intravenous contr ast. Sequences included coronal PD-weighted FSE, coronal PD-weighted FS FSE, sagittal T2-weighted FS E, sagittal PD-weighted FS FSE and axial PD weighted fat saturated FSE. COMPARISON: None. FINDINGS: Medial compartment: Medial meniscus is normal. There is mild partial-thickness cartilage loss with smooth chondral surfac e along the medial margin of the medial tibial plateau and anterior weightbearing medial femoral cond yle. There is mild subarticular edema-like signal change along the medial margin of the anterior weig htbearing medial femoral condyle. Lateral compartment: There is a longitudinal horizontal tear plane extending to near the free edge of the body of the late ral meniscus with cluster of paralabral cysts extending approximately 3 cm in length along the articu lar the periphery of the body and anterior horn of the lateral meniscus measuring up to 6 x 7 mm in m aximal orthogonal dimensions. There is partial thickness chondral fissuring along the lateral tibial plateau in place appearing to involve greater than 50% the cartilage thickness and with tiny focus of subarticular edema-like signal change posteriorly. Mild chondral surface regularity along the anteri or to central weightbearing lateral femoral condyle without degenerative subchondral changes. Patellofemoral compartment: Partial-thickness chondral ulceration without degenerative subchondral changes at the inferior half o f the medial patellar facet. Trochlear cartilage appears relatively preserved. Ligaments and tendons: Anterior and posterior cruciate ligaments are normal. The medial collateral ligament and fibular genna ateral ligament complex are normal. The extensor mechanism is normal. The visualized medial and later al hamstring tendons as well as the iliotibial band are normal. Fluid: Physiologic amount of fluid in the joint space. No loose osteochondral bodies identified. Osseous/other: Bone alignment is normal. No fracture or pathologic marrow replacing process. IMPRESSION: 1. Longitudinal horizontal tear of the body and anterior horn of the lateral meniscus with associated para meniscal cysts along the periphery of the meniscus. 2. Mild tricompartmental osteoarthritis at the right knee. 3. Mild edema-like signal change along the medial rim of the anterior weightbearing medial femoral co ndyle which could be due to overlying chondromalacia stress reaction related to altered weight distri bution or bone contusion in the setting of trauma. Reviewed, dictated and finalized at location A. IMPRESSION: 1. Longitudinal horizontal tear of the body and anterior horn of the lateral me niscus with associated para meniscal cysts along the periphery of the meniscus. 2. Mild tricompartmental osteoarthritis at the right knee. 3. Mild edema-like signal change along the medial rim of the anterior weightbea ring medial femoral condyle which could be due to overlying chondromalacia stre ss reaction related to altered weight distribution or bone contusion in the set ting of trauma.
== END 2024-08-08 14:27 | disposition home or self-care (01) ==
LOC: GOSHIMG 14:26
PROVIDERS: PCP Orthopaedic Surgery; Visit Provider Orthopaedic Surgery
DX: S83.281A Other tear of lateral meniscus, current injury, right knee, initial encounter (principal); M17.11 Unilateral primary osteoarthritis, right knee; X58.XXXA Exposure to other specified factors, initial encounter
CPT/HCPCS: 73721

== ENCOUNTER 2024-09-16 13:02 | Outpatient (CLI) | payer BC, SELFPAY ==
--- OUTSIDE RECORDS SUMMARY | 2024-09-16 13:16 | XMS_ITS | Clinical Summary ---
Author Organization [facility] Address [address] [facility] [place] [address] Care Team Providers Care Specialties Operator Name Role Phone Rupinder Gómez APRN-DEEP SUBMERGENCE VEHICLE OPERATOR Primary Care Provider [phone] Source Comments [facility] [employer],non-owned Affiliates and Associated Physician Practices is amultiple site organization consisting of ambulatory clinics and hospital sitesin [place], [place], [place] and [place]. This disclosure is being madepursuant to the Care Everywhere program and may not contain all information available regarding this patient. Last updated 17.[facility] [employer] Social History Tobacco Use Types Packs/Day Years Used Date Smoking Tobacco: Never Assessed Comments Unknown Sex and Gender Information Value Date Recorded Sex Assigned at Not on file Legal Sex Female 1:15 PM CDT Gender Identity Not on file Sexual Orientation [...] COLON CA SCREENING 1960 LIPID TESTING 1960 HIV SCREENING 02/06/1975 HEPATITIS C SCREENING 02/02/1978 DTAP/TDAP/TD VACCINES (1 - Tdap) 02/06/1979 PAP SMEAR 02/06/1981 PNEUMOCOCCAL VACCINE 50+ (1 of 1 - PCV) 02/06/2010 ZOSTER VACCINE (1 of 2) 02/06/2010 MAMMOGRAM 03/11/2022 03/11/2020, 03/13/2018 COVID-19 VACCINE ( season) 2023 09/07/2021, 01/26/2021, 06/19/2020, Additional history exists DEPRESSION SCREENING 03/05/2024 INFLUENZA VACCINE (#1) 2024 2, 01/12/2021, 10/24/2019, Additional history exists Respiratory Syncytial Virus (RSV) Vaccine Pt: or [...] on patient's age to complete this topic [place] [address] [address] [place] [address] Care Teams Specialties Operator Relationship Specialty Start Date End Date Rupinder Gómez APRN-COLE [address] [place] [address] PCP - General Nurse Practitioner Family 12/05/23
--- OUTSIDE RECORDS SUMMARY | 2024-09-16 13:16 | XMS_ITS | Encounter Summary ---
Author Organization [facility] Address [address] [place] [address] Phone Care Team Providers Care Instrumental Teacher Name Role Phone Parth Munoz MD Primary Care Provider [phone] Brianna Salamanca MD Primary Care Provider Keyshawn Stoll MD Unavailable [phone] José Miguel Haines MD Unavailable Claudine May MD Unavailable [phone] Mya Cooley NP Unavailable [phone] Encounter Details Date Type Department Care Team (Latest Contact Info) Description 03/15/2022 Orders Only [facility] Scanning, Provider Social History Tobacco Use Types Packs/Day Years Used Date Smoking Tobacco: Never Assessed Comments Unknown Sex and Gender Information Value Date Recorded Sex Assigned at Not on file 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 [address] [place] [address] Medical Oncologist/Feller Machine Operator Hematology and Oncology 08/22/22 Claudine May MD [address] [place] [address] Radiation Oncologist Radiation Oncology 10/18/22 Mya Cooley NP [address] [place] [address] Nurse Practitioner Radiation Oncology 05/29/23 documented as of this encounter
--- OUTSIDE RECORDS SUMMARY | 2024-09-16 13:16 | XMS_ITS ---
Author Organization [facility] Address [address] [place] [address] Care Team Providers Care Patient Care Secretary Name Role Phone Brianna Salamanca MD Primary Care Provider Keyshawn Stoll MD Unavailable José Miguel Haines MD Unavailable Claudine May MD Unavailable Mya Cooley NP Unavailable [phone] Active Problems Problem Noted Date Diagnosed Date [...] mGy 6 60.01 mGy 0 mGy DLP 3,141 mGycm 3,141 mGycm 0 mGycm
--- OUTSIDE RECORDS SUMMARY | 2024-09-16 13:16 | XMS_ITS | Encounter Summary ---
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 Gender Identity Not on file Sexual Orientation [...] on filedocumented in this encounter Care Teams Tv Technician Relationship Specialty Start Date End Date Brianna Salamanca MD [address] [place] [address] PCP - General Family Medicine 05/23/22 Keyshawn Stoll MD [address] DIV IM PULMONARY [facility] C[facility], [address] [place] [address] Referring Physician Pulmonary Disease 08/22/22 José Miguel Haines MD [address] DIV IM PULMONARY AND CCM, [address] [place] [address] Medical Oncologist/Livestock Speculator Hematology and Oncology 08/22/22 Claudine May MD [address] [place] [address] Radiation Oncologist Radiation Oncology 10/18/22 Mya Cooley NP [address] [place] [address] Nurse Practitioner Radiation Oncology 05/29/23 documented as of this encounter
--- OUTSIDE RECORDS SUMMARY | 2024-09-16 13:16 | XMS_ITS | Encounter Summary ---
Author Organization [facility] Address [address] [place] [address] Care Team Providers Care Surface Supervisor Name Role Phone Parth Munoz MD Primary Care Provider [phone] Brianna Salamanca MD Primary Care Provider Keyshawn Stoll MD Unavailable José Miguel Haines MD Unavailable [phone] Claudine May MD Unavailable [phone] Mya Cooley NP Unavailable Encounter Details Date Type Department Care Team (Late st Contact Info) Description 05/17/2022 Telephone [facility] Interventional Pulmonology [address] [place] [address] Katja Baumann, RN Social History Tobacco Use [...] on file 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 Gender Identity Not on file Sexual Orientation [...] on filedocumented in this encounter Care Teams Surface Supervisor Relationship Specialty Start Date End Date Parth Munoz MD PCP - General 02/09/11 05/22/22 Brianna Salamanca MD [address] [place] [address] PCP - General Family Medicine 05/23/22 Keyshawn Stoll MD [address] DIV IM PULMONARY AND CCM, [address] [address] Referring Physician Pulmonary Disease 08/22/22 José Miguel Haines MD [address] DIV IM PULMONARY AND CCM, [facility] [address] [place] [address] Medical Oncologist/Geomorphologist Hematology and Oncology 08/22/22 Claudine May MD [address] [place] [address] Radiation Oncologist Radiation Oncology 10/18/22 Mya Cooley NP [address] [facility] [address] [place] [address] Nurse Practitioner Radiation Oncology 05/29/23 documented as of this encounter
--- OUTSIDE RECORDS SUMMARY | 2024-09-16 13:16 | XMS_ITS | Encounter Summary ---
Author Organization [facility] Address [address] [place] [address] Care Team Providers Care Cosmetic Consultant Name Role Phone Parth Munoz MD Primary Care Provider Brianna Salamanca MD Primary Care Provider Keyshawn Stoll MD Unavailable [phone] José Miguel Haines MD Unavailable [phone] Claudine May MD Unavailable Mya Cooley NP Unavailable [phone] Encounter Details Date Type Department Care Team (Late st Contact Info) Description 05/17/2022 Telephone [facility] Interventional Pulmonology 1 [place] [address] Katja Baumann, RN Social History Tobacco Use [...] on file 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 Instructed the patient to arrive at [facility] Admitting/Registration Office on [facility] on tomorrow 05/18/22 at 0730. 3. Instructed [...] supply to get themselves to and from [facility]. 5. Patient stated that patient does use a CPAP or BIPAP device. Instructed patient, if they use a CPAP or BIPAP, to bring in their device or bring documentation of their CPAP/BIPAP settings with themto their appointment. 6. The patient will need a city driver or will need to arrange their [...] are familiar on the location of the [facility] Admitting Office for pre- procedure registration and any lab work that may be ordered. Discussed that the patient is not to go to the [facility] for their appointment. Confirmed they are aware of what time to arrive at the [facility] Admitting Office. 12. I reviewed the following [facility] Visitor Policy that was updated 06/2021 [...] wear a face covering upon entrance to [facility]. If you or your visitors do [...] on filedocumented in this encounter Care Teams Cosmetic Consultant Relationship Specialty Start Date End Date Parth Munoz MD PCP - General 02/09/11 05/22/22 Brianna Salamanca MD [address] [address] PCP - General Family Medicine 05/23/22 Keyshawn Stoll MD [address] DIV IM PULMONARY AND CCM, [address] [place] [address] Referring Physician Pulmonary Disease 08/22/22 José Miguel Haines MD [address] DIV IM PULMONARY AND CCM, [address] [place] [address] Medical Oncologist/Computational Theory Scientist Hematology and Oncology 08/22/22 Claudine May MD [address] [place] [address] Radiation Oncologist Radiation Oncology 10/18/22 Mya Cooley NP [address] [place] [address] Nurse Practitioner Radiation Oncology 05/29/23 documented as of this encounter
--- OUTSIDE RECORDS SUMMARY | 2024-09-16 13:16 | XMS_ITS | Encounter Summary ---
Author Organization [facility] Address [address] [place] [address] Phone Care Team Providers Care Underground Mining Section Foreman Name Role Phone Parth Munoz MD Primary Care Provider [phone] Brianna Salamanca MD Primary Care Provider Keyshawn Stoll MD Unavailable [phone] José Miguel Haines MD Unavailable Claudine May MD Unavailable [phone] Mya Cooley NP Unavailable [phone] Encounter Details Date Type Department Care Team (Latest Contact Info) Description 10/17/2021 Orders Only [facility] Scanning, Provider Social History Tobacco Use Types Packs/Day Years Used Date Smoking Tobacco: Never Assessed Comments Unknown Sex and Gender Information Value Date Recorded Sex Assigned at Not on file 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 Gender Identity Not on file Sexual Orientation [...] on filedocumented in this encounter Care Teams Underground Mining Section Foreman Relationship Specialty Start Date End Date Parth Munoz MD PCP - General 02/09/11 05/22/22 Brianna Salamanca MD [address] [place] [address] PCP - General Family Medicine 05/23/22 Keyshawn Stoll MD [address] DIV IM PULMONARY AND CCM, [address] [place] [address] Referring Physician Pulmonary Disease 08/22/22 José Miguel Haines MD [address] DIV IM PULMONARY AND CCM, [address] [place] [address] Medical Oncologist/Assembler Mechanical Ordnance Hematology and Oncology 08/22/22 Claudine May MD [address] [place] [address] Radiation Oncologist Radiation Oncology 10/18/22 Mya Cooley NP [address] [place] [address] Nurse Practitioner Radiation Oncology 05/29/23 documented as of this encounter
--- OUTSIDE RECORDS SUMMARY | 2024-09-16 13:16 | XMS_ITS | Clinical Summary ---
Author Organization [facility] Address [address] [place] [address] Care Team Providers Care Brief Writer Name Role Phone Brianna Salamanca MD Primary Care Provider Keyshawn Stoll MD Unavailable José Miguel Haines MD Unavailable Claudine May MD Unavailable Mya Cooley NP Unavailable [phone] Allergies Active Allergy Reactions Criticality Noted Date [...] Encounters Date Type Department Care Team Description 09/09/2024 10:40 AM CDT Office Visit [facility] Advanced Medicine Radiation Oncology [address] [facility] [place] [address] Mya Cooley NP Malignant neoplasm of lower lobe of left lung (HCC) [C34.32]; Primary cancer of right lower lobe of lung (HCC) [C34.31] 09/09/2024 9:50 AM CDT - 09/09/2024 11:59 PM CDT Hospital Encounter [facility] [address] [place] [address] Malignant neoplasm of lower lobe of left lung (HCC) [C34.32]; Primary cancer of right lower lobe of lung (HCC) [C34.31] Discharge Disposition: Discharge to home or self care 09/09/2024 Documentation [facility] Clinical Trial 1 [place] [address] Sherlyn Ware RN from Last 3 Months Immunizations Immunization Administration [...] SURGERY 03/05/1986 - 03/04/1987 Right pins placed, 1988, screws removed ROTATOR CUFF REPAIR Bilateral right 2014, left 2020 COLONOSCOPY 03/05/2021 - 03/04/2022 BIOPSY 05/03/2022 - 06/02/2022 LIVER BIOPSY 03/05/2021 - 03/04/2022 US GUIDED BIOPSY LIVER 10/17/2021 N/A Medical History Medical History Date Comments COPD [...] on file 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 Gender Identity Not on file Sexual Orientation [...] CDT Inhaled Oxygen Concentration - - Weight 93 kg (205 lb 1.6 oz) 06/10/2024 10:24 AM CDT Height 167.6 cm (5' 6) 06/10/2024 10:24 AM CDT Body Mass Index 33.1 06/10/2024 10:24 AM CDT Plan of Treatment Health Maintenance Due Date [...] 09/07/2021, 01/26/2021, Additional history exists Influenza Vaccine (#1) 2024 , 01/12/2021, 10/24/2019, Additional history exists DTaP/Tdap/Td Vaccine (2 - Td or Tdap) 11/21/2025 11/22/2015 Zoster Vaccine Completed 02/13/2020, 12/15/2019 Procedures Procedure Name Priority Date/Time Associated Diagnosis Comments CT CHEST WO CONTRAST Schedule Routine, Read Routine (OP Routine) 09/09/2024 10:16 AM CDT Malignant neoplasm of lower lobe of left lung (HCC) [C34.32] Primary cancer of right lower lobe of lung (HCC) [C34.31] EGFR STAT 09/07/2022 3:20 PM CDT Malignant neoplasm of lung, unspecified laterality, unspecified part of lung (HCC) from Last 3 Months or Most Recently Relevant to Health Maintenance Results * CT Chest WO Contrast (09/09/2024 10:16 AM CDT) Anatomical Region Laterality Modality Body N/A Computed Tomogra phy 09/09/2024 10:4 3 AM CDT Impressions 09/09/2024 10:43 AM CDT 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 No local recurrence or metastases in the chest. Electronically signed by: Amy Kraft M.D. Narrative 09/09/2024 10:43 AM CDT EXAMINATION: Computed tomography of the chest without intravenous contrast HISTORY: 64-year-old woman with history of non-small cell lung cancer TECHNIQUE: Transaxial computed tomographic images of the chest were obtained without intravenous contrast according to the standard protocol. COMPARISON: CT exams of 06/10/2024 and 03/11/2024 FINDINGS: Masslike consolidation with associated architectural distortion located in the centrally in the posterior lateral basal segment the right lower lobe and also centrally in the basal segments of the left lower lobe extending to the anterior medial basal segment. It is associated with volume loss, especially the left lower lobe. These findings represent radiation fibrosis. No underlying mass or nodule identified. Stable atelectasis or scarring in the inferior lingula adjacent to the fissure. Stable solid oblong shaped nodule in the right middle lobe measuring 5 mm in greatest diameter (series 2 image #63). It is nonspecific change since prior exams. No new pulmonary nodules. Mild emphysema predominating in the upper lobes noted. The trachea and bronchi are unchanged with no central airway abnormality. There is no noncalcified lymphadenopathy in the chest. Calcified left hilar lymph nodes are sequela of past trauma was infection. There is dense mitral annulus calcification. Extensive atherosclerotic calcification of the coronary arteries, aorta and great vessels noted. The left ventricle and left atrium mildly enlarged but able. No pleural or pericardial effusion or thickening. Included portions of the upper abdomen demonstrate atherosclerosis of the abdominal aorta and splenic artery. Bone windows demonstrate no lytic or blastic osseous lesions Procedure Note Amy Kraft MD - 09/09/2024 EXAMINATION: Computed tomography of the chest without intravenous contrast HISTORY: 64-year-old woman with history of non-small cell lung cancer TECHNIQUE: Transaxial computed tomographic images of the chest were obtained without intravenous contrast according to the standard protocol. COMPARISON: CT exams of 06/10/2024 and 03/11/2024 FINDINGS: Masslike consolidation with associated architectural distortion located in the centrally in the posterior lateral basal segment the right lower lobe and also centrally in the basal segments of the left lower lobe extending to the anterior medial basal segment. It is associated with volume loss, especially the left lower lobe. These findings represent radiation fibrosis. No underlying mass or nodule identified. Stable atelectasis or scarring in the inferior lingula adjacent to the fissure. Stable solid oblong shaped nodule in the right middle lobe measuring 5 mm in greatest diameter (series 2 image #63). It is nonspecific change since prior exams. No new pulmonary nodules. Mild emphysema predominating in the upper lobes noted. The trachea and bronchi are unchanged with no central airway abnormality. There is no noncalcified lymphadenopathy in the chest. Calcified left hilar lymph nodes are sequela of past trauma was infection. There is dense mitral annulus calcification. Extensive atherosclerotic calcification of the coronary arteries, aorta and great vessels noted. The left ventricle and left atrium mildly enlarged but able. No pleural or pericardial effusion or thickening. Included portions of the upper abdomen demonstrate atherosclerosis of the abdominal aorta and splenic artery. 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 No local recurrence or metastases in the chest. Electronically signed by: Amy Kraft M.D. Mya Cooley NP [facility] CT PROCEDURES Final Result * (ABNORMAL) eGFR (09/07/2022 3:20 PM CDT) eGFR 70(L) 90 - 130 mL/min/1. 73 m2 [facility] Comment: Interpretive Data Reference Interval Normal >/= [...] was last reviewed 2021. Testing performed by: [facility], [address] [place] [id number] Blood 09/07/2022 3:20 PM CDT 09/07/2022 3:24 PM CDT José Miguel Haines MD LAB BLOOD ORDERABLES Final Result [facility] Department [place] [address] from Last 3 Months or Most Recently Relevant to Health Maintenance Insurance [employer] ACCESS [employer] Care Teams Brief Writer Relationship Specialty Start Date End Date Brianna Salamanca MD [address] [place] [address] PCP - General Family Medicine 05/23/22 Keyshawn Stoll MD [address] DIV IM PULMONARY AND CCM, [address] [place] [address] Referring Physician Pulmonary Disease 08/22/22 José Miguel Haines MD [address] DIV IM PULMONARY AND CCM, [address] [place] [address] Medical Oncologist/Court Messenger Hematology and Oncology 08/22/22 Claudine May MD [address] [place] [address] Radiation Oncologist Radiation Oncology 10/18/22 Mya Cooley NP [address] [place] [address] Nurse Practitioner Radiation Oncology 05/29/23
--- OUTSIDE RECORDS SUMMARY | 2024-09-16 13:16 | XMS_ITS | Encounter Summary ---
Author Organization [facility] Address [address] [place] [address] Phone Care Team Providers Care Margarine Churn Operator Name Role Phone Parth Munoz MD Primary Care Provider [phone] Brianna Salamanca MD Primary Care Provider Keyshawn Stoll MD Unavailable José Miguel Haines MD Unavailable [phone] Claudine May MD Unavailable [phone] Mya Cooley NP Unavailable [phone] Encounter Details Date Type Department Care Team (Latest Contact Info) Description 08/16/2021 Orders Only [facility] Scanning, Provider Social History Tobacco Use Types Packs/Day Years Used Date Smoking Tobacco: Never Assessed Comments Unknown Sex and Gender Information Value Date Recorded Sex Assigned at Not on file 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 Gender Identity Not on file Sexual Orientation Not on file documented as of this encounter Plan of Treatment Not on file documented as of this encounter Procedures Procedure Name Priority Date/Time Associated Diagnosis Comments GI - RESULT 08/16/2021 documented in this encounter Results * GI - RESULT (08/16/2021) Anatomical Region Laterality Modality Other us Provider Scanning Edited Result - Final documented in this encounter Visit Diagnoses Not on filedocumented in this encounter Care Teams Margarine Churn Operator Relationship Specialty Start Date End Date Parth Munoz MD PCP - General 02/09/11 05/22/22 Brianna Salamanca MD [address] [place] [address] PCP - General Family Medicine 05/23/22 Keyshawn Stoll MD [address] DIV IM PULMONARY AND CCM, [address] [place] [address] Referring Physician Pulmonary Disease 08/22/22 José Miguel Haines MD [address] DIV IM PULMONARY AND CCM, [address] [place] [address] Medical Oncologist/Art History Professor Hematology and Oncology 08/22/22 Claudine May MD [address] [place] [address] Radiation Oncologist Radiation Oncology 10/18/22 Mya Cooley NP [address] [place] [address] Nurse Practitioner Radiation Oncology 05/29/23 documented as of this encounter
--- OUTSIDE RECORDS SUMMARY | 2024-09-16 13:16 | XMS_ITS | Encounter Summary ---
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 Gender Identity Not on file Sexual Orientation [...] on filedocumented in this encounter Care Teams Sales Management Trainee Relationship Specialty Start Date End Date Brianna Salamanca MD [address] [place] [address] PCP - General Family Medicine 05/23/22 Keyshawn Stoll MD [address] DIV IM PULMONARY AND CCM, [address] [place] [address] Referring Physician Pulmonary Disease 08/22/22 José Miguel Haines MD [address] DIV IM PULMONARY AND CCM, [address] [place] [address] Medical Oncologist/Salesforce Administrator Hematology and Oncology 08/22/22 Claudine May MD [address] [place] [address] Radiation Oncologist Radiation Oncology 10/18/22 Mya Cooley NP [address] [place] [address] Nurse Practitioner Radiation Oncology 05/29/23 documented as of this encounter
--- OUTSIDE RECORDS SUMMARY | 2024-09-16 13:16 | XMS_ITS | Referral Summary ---
Author Organization [facility] Address [address] [place] [address] Care Team Providers Care Electronics Supervisor Name Role Phone Brianna Salamanca MD Primary Care Provider Keyshawn Stoll MD Unavailable José Miguel Haines MD Unavailable Claudine May MD Unavailable Mya Cooley NP Unavailable Encounters Date Type Department Care Team Description 09/09/2024 Documentation [facility] Clinical Trial 1 [place] [address] Sherlyn Ware RN 09/09/2024 10:40 AM CDT Office Visit [facility] Radiation Oncology [address] [place] [address] [place] [address] Mya Cooley NP Malignant neoplasm of lower lobe of left lung (HCC) [C34.32]; Primary cancer of right lower lobe of lung (HCC) [C34.31] 09/09/2024 9:50 AM CDT - 09/09/2024 11:59 PM CDT Hospital Encounter [facility]) [address] [place] [address] Malignant neoplasm of lower lobe of left [...] on file 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 Mya Cooley NP IM CT PROCEDURES Final Result * (ABNORMAL) eGFR (09/07/2022 3:20 PM CDT) eGFR 70(L) 90 - 130 mL/min/1. 73 m2 [facility] Comment: Interpretive Data Reference Interval Normal [...] was last reviewed 2021. Testing performed by: [facility], [address] [place] [phone] Blood 09/07/2022 3:20 PM CDT 09/07/2022 3:24 PM CDT us José Miguel Haines MD LAB BLOOD ORDERABLES Final Result [facility] Department [place] [address] from Last 3 Months or Most Recently Relevant to Health Maintenance Insurance 12Return 12Return Care Teams Electronics Supervisor Relationship Specialty Start Date End Date Brianna Salamanca MD [address] [place] [address] PCP - General Family Medicine 05/23/22 Keyshawn Stoll MD [address] DIV IM PULMONARY AND CCM, [address] [place] [address] Referring Physician Pulmonary Disease 08/22/22 José Miguel Haines MD [address] DIV IM PULMONARY AND CCM, [address] [place] [address] Medical Oncologist/Communications Associate Hematology and Oncology 08/22/22 Claudine May MD [address] [place] [address] Radiation Oncologist Radiation Oncology 10/18/22 Mya Cooley, NEHA [address] [place] [address] Nurse Practitioner Radiation Oncology 05/29/23
--- NOTE | 2024-09-16 13:18 | ECG_ITS ---
Test Date: 2024-09-16 13:34:05 Measurements Intervals [place] Rate: 63 P: 49 MO: 177 QRS: 13 QRSD: 90 T: 48 QT: 414 QTc: 425 Interpretive Statements SINUS RHYTHM LOW QRS VOLTAGE IN PRECORDIAL LEADS [QRS DEFLECTION < 1.0 mV IN CHEST LEADS] NONSPECIFIC T-WAVE ABNORMALITY No previous ECG available for comparison Electronically Signed On 09-17-2024 12:31:28 CDT by Feroz Sánchez M.D.
[2024-09-16 14:14] LABS: Anion Gap 12 mmol/L (4-12); Blood Urea Nitrogen 22 mg/dL (7-17); Calcium 9.8 mg/dL (8.4-10.2); Carbon Dioxide 22 mmol/L (22-30); Chloride 106 mmol/L (98-107); Estimated Glomerular Filt Rate 38; Glucose 181 mg/dL (65-110); Potassium 3.9 mmol/L (3.4-5.0); Sodium 140 mmol/L (137-145)
== END 2024-09-16 13:03 | disposition home or self-care (01) ==
PROVIDERS: Anesthesiology; PCP Family Medicine; Visit Provider Orthopaedic Surgery
DX: Z01.818 Encounter for other preprocedural examination (principal); I10 Essential (primary) hypertension; E11.40 Type 2 diabetes mellitus with diabetic neuropathy, unspecified
CPT/HCPCS: 36415; 80048; 93005

== ENCOUNTER 2024-09-19 00:11 | Day surgery (SDC) | payer BC, SELFPAY ==
[2024-09-16 11:28] VITALS: BMI 33.7
--- NOTE | 2024-09-16 12:42 | PC.NURSE ---
Report to the Outpatient Waiting Room, entrance under the green pavilion located off [facility], at time __06:00AM on date _09/19/24 . Planned Procedure Time: _07:30AM .? Time changes happen often and if your time is changed the preop area will call you the afternoon before. - You and your visitor will be asked to self-screen and do not enter if you have any COVID symptoms. Please call surgeon if you need to reschedule. - A mask is optional within the hospital at this time. Patients may have clear liquids (water, carbonated beverages, clear teas, apple juice) until 3 hours prior to surgery with a maximum of 20 ounces. - No food from midnight until time of surgery and no smoking, or chewing tobacco (or any form of nicotine). No chewing gum, candy or mints. Take only the following medications with a SIP of water on the morning of surgery: __GABAPENTIN (IF DESIRED); RESPIRATORY INHALERS; TRAMADOL (IF DESIRED) DO NOT STOP ANY OF YOUR OTHER PRESCRIPTION MEDICATIONS PRIOR TO SURGERY EXCEPT THE FOLLOWING Hold all vitamins and supplements for 3 days per anesthesiologist. Medications to discontinue per physician N/A Date to take last dose____N/A Please no make-up, nail telugu, hairspray, perfume, deodorant, or body powder the day of surgery.? No jewelry (including any body piercings) or valuables the day of surgery, leave them at home.? Please take a shower or bath the night before, or the morning of, surgery with an antibacterial soap.? Wear comfortable, loose fitting clothing.? - Jewelry must be removed prior to entering the operating room.? Rings and piercings that are not removed may be cut off. - The hospital will not accept responsibility for valuables.? - Please leave all valuables, including medications, at home the day of surgery. If you are going home after surgery, a licensed front end loader driver must drive you home.? - NO public transportation without another adult if you receive anesthesia. - We recommend that an adult stay with you for 24 hours following discharge. - We also recommend that you do not drive, make important decision, drink alcoholic beverages, or take any drugs that were not prescribed by your health care provider for at least 24 hours after your discharge time. Follow any additional instructions given to you from your surgeon. Telephone instructions given to __CECY and asked if any additional questions and then verbalized understanding. Patient advised to call surgeon office or pre surgery nurse liaison [phone] if any additional questions.
[2024-09-19] VITALS (7 sets, daily range): BP systolic 93–127; BP diastolic 39–71; PULSE 61–71; RESP 12–20; TEMP 36.8; O2SAT 94–100; BMI 33.7
--- OUTSIDE RECORDS SUMMARY | 2024-09-19 00:15 | XMS_ITS | Referral Summary ---
Author Organization [facility] Address [address] [place] [address] Care Team Providers Care Metal Flooring Installer Name Role Phone Brianna Salamanca MD Primary Care Provider Keyshawn Stoll MD Unavailable [phone] José Miguel Haines MD Unavailable [phone] Claudine May MD Unavailable Mya Cooley NP Unavailable [phone] Encounters Date Type Department Care Team Description 09/09/2024 Documentation [facility] Clinical Trial 1 [place] [address] Sherlyn Ware RN 09/09/2024 10:40 AM CDT Office Visit [facility] Radiation Oncology [address] [place] [address] [place] [address] Mya Cooley NP Malignant neoplasm of lower lobe of left lung (HCC) [C34.32]; Primary cancer of right lower lobe of lung (HCC) [C34.31] 09/09/2024 9:50 AM CDT - 09/09/2024 11:59 PM CDT Hospital Encounter [facility] ([facility]) [address] [place] [address] Malignant neoplasm of lower lobe of left [...] on file 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 73 m2 [facility] Comment: Interpretive Data Reference Interval Normal >/= [...] was last reviewed 2021. Testing performed by: [facility], [address] [place] [id number] Blood 09/07/2022 3:20 PM CDT 09/07/2022 3:24 PM CDT us José Miguel Haines MD LAB BLOOD ORDERABLES Final Result [facility] Department [place] [address] from Last 3 Months or Most Recently Relevant to Health Maintenance Insurance [employer] Care Teams Metal Flooring Installer Relationship Specialty Start Date End Date Brianna Salamanca MD [address] [place] [address] PCP - General Family Medicine 05/23/22 Keyshawn Stoll MD [address] DIV IM PULMONARY AND CCM, [address] [place] [address] Referring Physician Pulmonary Disease 08/22/22 José Miguel Haines MD [address] DIV IM PULMONARY AND CCM, [address] [place] [address] Medical Oncologist/Instruction Assistant Principal Hematology and Oncology 08/22/22 Claudine May MD [address] [place] [address] Radiation Oncologist Radiation Oncology 10/18/22 Mya Cooley, NEHA [address] [place] [address] Nurse Practitioner Radiation Oncology 05/29/23
--- OUTSIDE RECORDS SUMMARY | 2024-09-19 00:15 | XMS_ITS | Encounter Summary ---
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 Gender Identity Not on file Sexual Orientation [...] on filedocumented in this encounter Care Teams Insurance Claims Assistant Relationship Specialty Start Date End Date Brianna Salamanca MD [address] [place] [address] PCP - General Family Medicine 05/23/22 Keyshawn Stoll MD [address] DIV IM PULMONARY AND CCM, [address] [place] [address] Referring Physician Pulmonary Disease 08/22/22 José Miguel Haines MD [address] DIV IM PULMONARY AND CCM, [address] [place] [address] Medical Oncologist/Icu Nurse Hematology and Oncology 08/22/22 Claudine May MD [address] [place] [address] Radiation Oncologist Radiation Oncology 10/18/22 Mya Cooley NP [address] [place] [address] Nurse Practitioner Radiation Oncology 05/29/23 documented as of this encounter
--- OUTSIDE RECORDS SUMMARY | 2024-09-19 00:15 | XMS_ITS | Encounter Summary ---
Author Organization [facility] Address [address] [facility] [place] [address] Phone Care Team Providers Care Warehouser Name Role Phone Parth Munoz MD Primary Care Provider [phone] Brianna Salamanca MD Primary Care Provider Keyshawn Stoll MD Unavailable [phone] José Miguel Haines MD Unavailable [phone] Claudine May MD Unavailable [phone] Mya Cooley NP Unavailable [phone] Encounter Details Date Type Department Care Team (Latest Contact Info) Description 10/17/2021 Orders Only [facility] Scanning, Provider Social History Tobacco Use Types Packs/Day Years Used Date Smoking Tobacco: Never Assessed Comments Unknown Sex and Gender Information Value Date Recorded Sex Assigned at Not on file 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 Gender Identity Not on file Sexual Orientation [...] on filedocumented in this encounter Care Teams Warehouser Relationship Specialty Start Date End Date Parth Munoz MD PCP - General 02/09/11 05/22/22 Brianna Salamanca MD [address] [place] [address] PCP - General Family Medicine 05/23/22 Keyshawn Stoll MD [address] DIV IM PULMONARY AND CCM, [address] [place] [address] Referring Physician Pulmonary Disease 08/22/22 José Miguel Haines MD [address] DIV IM PULMONARY AND CCM, [address] [place] [address] Medical Oncologist/City Wellness Coordinator Hematology and Oncology 08/22/22 Claudine May MD [address] [place] [address] Radiation Oncologist Radiation Oncology 10/18/22 Mya Cooley NP [address] [place] [address] Nurse Practitioner Radiation Oncology 05/29/23 documented as of this encounter
--- OUTSIDE RECORDS SUMMARY | 2024-09-19 00:15 | XMS_ITS | Clinical Summary ---
Author Organization [facility] Address [address] [facility] [place] [address] Care Team Providers Care J2Ee Software Engineer Name Role Phone Rupinder Gómez APRN-SENIOR ELECTRICAL DESIGNER Primary Care Provider [phone] Source Comments [facility],non-owned Affiliates and Associated Physician Practices is amultiple site organization consisting of ambulatory clinics and hospital sitesin [place], [place], [place] and [place]. This disclosure is being madepursuant to the Care Everywhere program and may not contain all information available regarding this patient. Last updated 17.[facility] Social History Tobacco Use Types Packs/Day Years [...] patient's age to complete this topic Insurance [place] [address] [place] [address] Care Teams J2Ee Software Engineer Relationship Specialty Start Date End Date Rupinder Gómez APRN-COLE [address] [place] [address] PCP - General Nurse Practitioner Family 12/05/23
--- OUTSIDE RECORDS SUMMARY | 2024-09-19 00:15 | XMS_ITS | Encounter Summary ---
Author Organization [facility] Address [address] [place] [address] Phone Care Team Providers Care Stock Wetter Name Role Phone Parth Munoz MD Primary Care Provider [phone] Brianna Salamanca MD Primary Care Provider Keyshawn Stoll MD Unavailable [phone] José Miguel Haines MD Unavailable [phone] Claudine May MD Unavailable [phone] Mya Cooley NP Unavailable [phone] Encounter Details Date Type Department Care Team (Latest Contact Info) Description 08/16/2021 Orders Only [facility] Scanning, Provider Social History Tobacco Use Types Packs/Day Years Used Date Smoking Tobacco: Never Assessed Comments Unknown Sex and Gender Information Value Date Recorded Sex Assigned at Not on file 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 Gender Identity Not on file Sexual Orientation [...] on filedocumented in this encounter Care Teams Stock Wetter Relationship Specialty Start Date End Date Parth Munoz MD PCP - General 02/09/11 05/22/22 Brianna Salamanca MD [address] [place] [address] PCP - General Family Medicine 05/23/22 Keyshawn Stoll MD [address] DIV IM PULMONARY AND CCM, [address] [place] [address] Referring Physician Pulmonary Disease 08/22/22 José Miguel Haines MD [address] DIV IM PULMONARY AND CCM, [address] [place] [address] Medical Oncologist/Pilot Submersible Hematology and Oncology 08/22/22 Claudine May MD [address] [place] [address] Radiation Oncologist Radiation Oncology 10/18/22 Mya Cooley NP [address] [place] [address] Nurse Practitioner Radiation Oncology 05/29/23 documented as of this encounter
--- OUTSIDE RECORDS SUMMARY | 2024-09-19 00:15 | XMS_ITS ---
Author Organization [facility] Address [address] [place] [address] Care Team Providers Care Grant Manager Name Role Phone Brianna Salamanca MD Primary Care Provider Keyshawn Stoll MD Unavailable José Miguel Haines MD Unavailable [phone] Claudine May MD Unavailable Mya Cooley NP Unavailable Active [...]
--- OUTSIDE RECORDS SUMMARY | 2024-09-19 00:15 | XMS_ITS | Encounter Summary ---
Author Organization [facility] Address [address] [place] [address] Phone Care Team Providers Care Supervisor Beet End Name Role Phone Parth Munoz MD Primary Care Provider [phone] Brianna Salamanca MD Primary Care Provider Keyshawn Stoll MD Unavailable José Miguel Haines MD Unavailable Claudine May MD Unavailable Mya Cooley NP Unavailable [phone] Encounter Details Date Type Department Care Team (Latest Contact Info) Description 03/15/2022 Orders Only [facility] Scanning, Provider Social History Tobacco Use Types Packs/Day Years Used Date Smoking Tobacco: Never Assessed Comments Unknown Sex and Gender Information Value Date Recorded Sex Assigned at Not on file 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 Gender Identity Not on file Sexual Orientation [...] on filedocumented in this encounter Care Teams Supervisor Beet End Relationship Specialty Start Date End Date Parth Munoz MD PCP - General 02/09/11 05/22/22 Brianna Salamanca MD [address] [place] [address] PCP - General Family Medicine 05/23/22 Keyshawn Stoll MD [address] DIV IM PULMONARY AND CCM, [address] [place] [address] Referring Physician Pulmonary Disease 08/22/22 José Miguel Haines MD [address] DIV IM PULMONARY AND CCM, [facility] [address] [place] [address] Medical Oncologist/Building Maintenance Engineer Hematology and Oncology 08/22/22 Claudine May MD [address] [place] [address] Radiation Oncologist Radiation Oncology 10/18/22 Mya Cooley NP [address] [place] [address] Nurse Practitioner Radiation Oncology 05/29/23 documented as of this encounter
--- OUTSIDE RECORDS SUMMARY | 2024-09-19 00:15 | XMS_ITS | Encounter Summary ---
Author Organization [facility] Address [address] [place] [address] Care Team Providers Care Garment Sewing Machine Operator Name Role Phone Parth Munoz MD Primary Care Provider [phone] Brianna Salamanca MD Primary Care Provider Keyshawn Stoll MD Unavailable José Miguel Haines MD Unavailable [phone] Claudine May MD Unavailable Mya Cooley NP Unavailable Encounter Details Date Type Department Care Team (Late st Contact Info) Description 05/17/2022 Telephone [facility] Interventional Pulmonology 1 [place] [address] Katja Baumann, RN Social History Tobacco Use [...] on file 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 Gender Identity Not on file Sexual Orientation [...] on filedocumented in this encounter Care Teams Garment Sewing Machine Operator Relationship Specialty Start Date End Date Parth Munoz MD PCP - General 02/09/11 05/22/22 Brianna Salamanca MD [address] [place] [address] PCP - General Family Medicine 05/23/22 Keyshawn Stoll MD [address] DIV IM PULMONARY AND CCM, [address] [address] Referring Physician Pulmonary Disease 08/22/22 José Miguel Haines MD [address] DIV IM PULMONARY AND CCM, [facility] [address] [place] [address] Medical Oncologist/Drama Professor Hematology and Oncology 08/22/22 Claudine May MD [address] [place] [address] Radiation Oncologist Radiation Oncology 10/18/22 Mya Co[address] [facility] [address] [place] [address] Nurse Practitioner Radiation Oncology 05/29/23 documented as of this encounter
--- OUTSIDE RECORDS SUMMARY | 2024-09-19 00:15 | XMS_ITS | Clinical Summary ---
Author Organization [facility] Address [address] [place] [address] Care Team Providers Care Tank Insulator Rubber Name Role Phone Brianna Salamanca MD Primary Care Provider Keyshawn Stoll MD Unavailable José Miguel Haines MD Unavailable Claudine May MD Unavailable Mya Cooley NP Unavailable Allergies Active Allergy [...] Description 09/09/2024 10:40 AM CDT Office Visit [facility] Advanced Medicine Radiation Oncology [address] [facility] [place] [address] Mya Cooley NP Malignant neoplasm of lower lobe of left lung (HCC) [C34.32]; Primary cancer of right lower lobe of lung (HCC) [C34.31] 09/09/2024 9:50 AM CDT - 09/09/2024 11:59 PM CDT Hospital Encounter [facility] ([facility]) [address] [place] [address] Malignant neoplasm of lower lobe of left lung (HCC) [C34.32]; Primary cancer of right lower lobe of lung (HCC) [C34.31] Discharge Disposition: Discharge to home or self care 09/09/2024 Documentation [facility] Clinical Trial 1 [place] [address] Sherlyn Ware RN from Last 3 Months [...] on file 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 Mya Cooley NP [facility] PROCEDURES Final Result * (ABNORMAL) eGFR (09/07/2022 3:20 PM CDT) eGFR 70(L) 90 - 130 mL/min/1. 73 m2 [facility] Comment: Interpretive Data Reference Interval Normal [...] was last reviewed 2021. Testing performed by: [facility], [address] [place] [id number] Blood 09/07/2022 3:20 PM CDT 09/07/2022 3:24 PM CDT José Miguel Haines MD LAB BLOOD ORDERABLES Final Result [facility] Department [place] [address] from Last 3 Months or Most Recently Relevant to Health Maintenance Insurance IfOnly ACCESS IfOnly ACCESS Care Teams Tank Insulator Rubber Relationship Specialty Start Date End Date Brianna Salamanca MD [address] [place] [address] PCP - General Family Medicine 05/23/22 Keyshawn Stoll MD [address] DIV IM PULMONARY AND CCM, [address] [place] [address] Referring Physician Pulmonary Disease 08/22/22 José Miguel Haines MD [address] DIV IM PULMONARY AND CCM, [address] [place] [address] Medical Oncologist/Non Licensed Operator Hematology and Oncology 08/22/22 Claudine May MD [address] [place] [address] Radiation Oncologist Radiation Oncology 10/18/22 Mya Cooley NP [address] [place] [address] Nurse Practitioner Radiation Oncology 05/29/23
--- OUTSIDE RECORDS SUMMARY | 2024-09-19 00:15 | XMS_ITS | Encounter Summary ---
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 Gender Identity Not on file Sexual Orientation [...] on filedocumented in this encounter Care Teams Hotel Assistant General Manager Relationship Specialty Start Date End Date Brianna Salamanca MD [address] [place] [address] PCP - General Family Medicine 05/23/22 Keyshawn Stoll MD [address] DIV IM PULMONARY AND CCM, [address] [place] [address] Referring Physician Pulmonary Disease 08/22/22 José Miguel Haines MD [address] DIV IM PULMONARY AND CCM, [address] [place] [address] Medical Oncologist/Timber Spotter Hematology and Oncology 08/22/22 Claudine May MD [address] [place] [address] Radiation Oncologist Radiation Oncology 10/18/22 Mya Cooley NP [address] [place] [address] Nurse Practitioner Radiation Oncology 05/29/23 documented as of this encounter
--- OUTSIDE RECORDS SUMMARY | 2024-09-19 00:15 | XMS_ITS | Encounter Summary ---
Author Organization [facility] Healthcare Address [address] [place] [address] Care Team Providers Care Medical Support Assistant Name Role Phone Parth Munoz MD Primary Care Provider [phone] Brianna Salamanca MD Primary Care Provider Keyshawn Stoll MD Unavailable José Miguel Haines MD Unavailable [phone] Claudine May MD Unavailable [phone] Mya Cooley NP Unavailable Encounter Details Date Type Department Care Team (Late st Contact Info) Description 05/17/2022 Telephone [facility] Interventional Pulmonology 1 [place] [address] Katja Baumann, RN Social History Tobacco Use [...] on file 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 Instructed the patient to arrive at [facility] Admitting/Registration Office on [facility] on tomorrow 05/18/22 at 0730. 3. [...] supply to get themselves to and from [facility]. 5. Patient stated that patient does use a CPAP or BIPAP device. Instructed patient, if they use a CPAP or BIPAP, to bring in their device or bring documentation of their CPAP/BIPAP settings with themto their appointment. 6. The patient will need a fork truck driver or will need to arrange [...] are familiar on the location of the [facility] Admitting Office for pre- procedure registration and any lab work that may be ordered. Discussed that the patient is not to go to the [facility] for their appointment. Confirmed they are aware of what time to arrive at the [facility] Admitting Office. 12. I reviewed the following [facility] Visitor Policy that was updated [...] wear a face covering upon entrance to [facility]. If you or your visitors [...] on filedocumented in this encounter Care Teams Medical Support Assistant Relationship Specialty Start Date End Date Parth Munoz MD PCP - General 02/09/11 05/22/22 Brianna Salamanca MD [address] [address] PCP - General Family Medicine 05/23/22 Keyshawn Stoll MD [address] DIV IM PULMONARY AND CCM, [address] [place] [address] Referring Physician Pulmonary Disease 08/22/22 José Miguel Haines MD [address] DIV IM PULMONARY AND CCM, [address] [place] [address] Medical Oncologist/Access Clerk Hematology and Oncology 08/22/22 Claudine May MD [address] [place] [address] Radiation Oncologist Radiation Oncology 10/18/22 Mya Cooley NP [address] [place] [address] Nurse Practitioner Radiation Oncology 05/29/23 documented as of this encounter
[2024-09-19] MEDS: ACETAMINOPHEN 500 MG TABLET 1000 MG PO (06:25)
[2024-09-19] MEDS: CELECOXIB 200 MG CAPSULE PO (06:25)
[2024-09-19] MEDS: LACTATED RINGERS 1,000 ML 30 ML IV CONT (06:30)
--- NOTE | 2024-09-19 06:39 | P.PNAN_ITS ---
Anes - Initial Pre Proc Eval Procedure: Operation Date: 09/19/24 07:30 Proposed Procedures p Right Knee Arthroscopy - Cristino Ibarra MD Date/Time: 09/19/24 06:39 Surgeon: Cristino Ibarra MD Pre Op Diagnosis: right knee lateral meniscus tear Patient Data Age: 64 Gender: F Height: 1.68 m Weight: 94.9 kg Allergies Allergy/AdvReac Type Severity Reaction Status Date / Time penicillin G Allergy Mild rash Verified 09/19/24 06:37 dapagliflozin (From [facility]) AdvReac Intermediate leg pain Verified 09/19/24 06:37 metformin AdvReac Intermediate Diarrhea Verified 09/19/24 06:38 Home Medications ?Medication ?Instructions ?Recorded ?Confirmed ?Type cyclosporine 0.05 % eye drops in a 1 drp EACH EYE Q12H 01/19/22 09/16/24 History dropperette (Restasis) lancets (Accu-Chek Fastclix Lancet 01/19/22 09/15/24 History Drum) azelastine 137 mcg (0.1 %) nasal 1 spray intranasal BID PRN stuffy 02/24/23 09/16/24 History spray nose levalbuterol tartrate 45 2 inh inhalation Q6H PRN shortness 10/02/23 09/16/24 Rx mcg/actuation aerosol inhaler of breath or wheezing #15 grams glipizide 5 mg tablet 5 mg PO DAILY #90 tabs 01/21/24 09/16/24 Rx atorvastatin 80 mg tablet See Rx Instructions .Route 02/22/24 09/16/24 Rx .COMPLEX #90 tabs Anoro Ellipta 62.5 mcg-25 See Rx Instructions .Route 03/13/24 09/16/24 Rx mcg/actuation powder for .COMPLEX #60 ea inhalation (umeclidinium-vilanterol) blood sugar diagnostic (Accu-Chek #100 strips 04/02/24 09/15/24 Rx Guide test strips) omeprazole 40 mg capsule,delayed 40 mg PO DAILY #90 caps 04/18/24 09/16/24 Rx release solifenacin 10 mg tablet (Vesicare) 10 mg PO DAILY #90 tabs 04/18/24 09/16/24 Rx lisinopril 20 1 tablet PO DAILY #90 tabs 04/23/24 09/16/24 Rx mg-hydrochlorothiazide 12.5 mg tablet cyclobenzaprine 5 mg tablet 5 mg PO TID PRN muscle spasm #30 05/26/24 09/16/24 Rx tabs tramadol 50 mg tablet 50 mg PO Q6H PRN pain #60 tabs 06/11/24 09/16/24 Rx gabapentin 300 mg capsule 300 mg PO Q6H #360 caps 08/18/24 09/16/24 Rx Laboratory Tests 09/19/24 06:36 POC Capillary Glucose 170 H mg/dl (65-105) Patient hx anesthesia problems: none Family hx anesthesia problems: none Results Review: All pre-operative results and documents have been reviewed as part of the pre- operative evaluation. 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 Right hip pain TMJ (temporomandibular joint disorder) Engages in vaping Lung cancer Status post radiation treatment Colon polyps Hearing loss, bilateral Chronic anemia Pulmonary nodules SARAH (obstructive sleep apnea) Diabetes mellitus with neuropathy Nicotine abuse HERNANDEZ (nonalcoholic steatohepatitis) With a liver biopsy 2021 demonstrating stage II disease Hyperlipidemia Complete rotator cuff tear (01/14/15) Vitamin D deficiency, unspecified Nicotine dependence, unspecified, uncomplicated Hyperlipidemia, unspecified Hereditary and idiopathic neuropathy, unspecified GERD (gastroesophageal reflux disease) Essential (primary) hypertension Chronic obstructive pulmonary disease, unspecified Surgical History Surgical History History of liver biopsy (~2021) Performed in [place] History of colonoscopy with polypectomy 2021 with repeat colonoscopy recommended in 3 years History of lung biopsy History of rotator cuff surgery Hx of cholecystectomy Hx of appendectomy Family History Family History Grandparent Family history of lung cancer, Onset Age: 40 Carcinoma of colon, Onset Age: 85 Father Malignant neoplasm of prostate, Onset Age: 76 Acute myocardial infarction, Onset Age: 76 Patient's father is Family history of chronic obstructive pulmonary disease Sibling Hypertension Mother Family history of malignant neoplasm of brain, Onset Age: 72 Patient's mother is Social History Social History Social History: She has been since her late 20s. She has 1 son who is 23 years old. She has been employed with the [employer] for 45 years. She read works from home remotely. She has smoked a pack of cigarettes per day and started smoking in her late 20s. She still vapes. She denies significant alcohol or illicit substance use. Code status: Full code Surrogate decision maker: Aubree (sister) Smoking packs per day: 1 Smoking cigarettes per day: 20.0 Years smoked: 45 Smoking pack-years: 45.00 Smoking status: Current some day smoker Tobacco type: e-cigarettes/vaping Second hand tobacco smoke exposure: No Smoking end date: 03/05/21 Additional smoking assessment comments: Pt continues to vape. Alcohol intake: former Substance use: never Substance use type: does not use Do You Feel Safe in your Home?: Yes Lack of Transportation: No Lack of Food: Never True Current Housing: I Have Housing Concerned About Future Housing: No Difficulty Paying Gas/Electric Bills: No Difficulty Paying for Meds: No Currently Unemployed: No Education: High School Diploma/GED Difficulty w/ Childcare or Family Care: No Living arrangements: with family Occupation/Education: occupation Additional occupation/education comments: [employer] Gender identity (if verbalized by the patient): Female Sexual Orientation (if Verbalized by the Patient): Straight or Heterosexual Spiritual care concerns: No Anes - Eval Final PreProcedure Day of Procedure 09/19/24 06:39 Patient weight: obese Heart: regular rate and rhythm Lungs: clear to auscultation Airway: Mallampati scale class III Neurological: alert and oriented Last oral intake: >/= 8 hours ASA classification: IV Emergent: no Anesthetic plan: proceed Anesthesia type and monitoring: general LMA and standard monitoring Results Review: All pre-operative results and documents have been reviewed as part of the pre- operative evaluation. Informed Consent: The patient's anesthetic plan and its attendant risks and benefits were discussed with the patient/family/POA. Questions were solicited and answers provided to the satisfaction of the patient/family/POA.
--- NOTE | 2024-09-19 07:21 | WPDHPUPDATE1 ---
History and Physical Update Update Date/Time: 09/19/24 07:21 History and Physical has been reviewed, including an updated exam of the patient. There are NO changes in the patient's condition. Risks, benefits, and alternatives have been discussed and questions answered. Patient agrees to proceed with procedure.
[2024-09-19] MEDS: ceFAZolin 2 GM in SODIUM CHLORIDE 0.9% IV 50 ML 100 ML IVPB (07:30)
--- NOTE | 2024-09-19 08:34 | P.OP_ITS ---
Procedure Note - Detailed Date of Procedure 09/19/24 Pre-op Diagnosis right knee lateral meniscus tear Post-op Diagnosis Same Procedure Performed RIGHT KNEE SCOPE Surgeon Cristino Ibarra MD Anesthesia General Description of Procedure PATIENT WAS TAKEN TO THE OPERATING ROOM SUITE. ANESTHESIA WAS INDUCED. THE RIGHT LEG WAS PREPPED AND DRAPED STERILE. TROCARS WERE PLACED IN TO THE KNEE JOINT IN THE USUAL FASHION. THE CAMERA WAS INTRODUCED. THERE WAS MODERATE CHONDROMALACIA TO THE PATELLA FEMORAL JOINT. THERE WAS A LOT OF SYNOVITIS IN ALL COMPARTMENTS. THE MEDIAL COMPARTMENT SHOWED GRADE 2 CHONDROMALACIA TO THE MEDIAL FEMORAL CONDYLE. THERE WAS NO MEDIAL MENISCUS TEAR. CHONDROPLASTY WAS PREFORMED. THE AC L WAS INTACT. THE LATERAL MENISCUS WAS TORN AT THE MID SUBSTANCE AND EXTENDED TO THE ANTERIOR HORN. THE TEAR WAS CONFINED TO THE WHITE ZONE AND WAS A COMPLEX TEAR. THE TEAR WAS RESECTED. THE LATERAL COMPARTMENT HAD NO CHONDROMALACIA AT THE LATERAL PLATEAU OR LATERAL FEMORAL CONDYLE. A SYNOVECTOMY WAS PREFORMED. THE PATELLO FEMORAL JOINT UNDERWENT CHONDROPLASTY OVER THE PATELLA. THERE WAS GRADE 2 CHONDROMALACIA IN A SMALL SECTION OF THE OF THE PATELLA AND TROCHLEA. SYNOVECTOMY WAS PREFORMED IN THE SUPERIOR MEDIAL COMPARTMENT. THE WOUNDS WERE APPROXIMATED WITH 4.0 NYLON. STERILE DRESSING WAS APPLIED. PATIENT WAS EXTUBATED. Estimated Blood Loss 5 Complications No immediate complications Condition Stable Disposition PACU
--- NOTE | 2024-09-19 10:06 | SUR.PHASEII ---
CRUTCHES ORDERED PER PATIENT REQUEST.
--- NOTE | 2024-09-19 10:23 | SUR.PHASEII ---
CRUTCHES GIVEN TO PATIENT.
== END 2024-09-19 10:28 | disposition home or self-care (01) ==
PROVIDERS: PCP Family Medicine; Visit Provider Orthopaedic Surgery
PROC: (CPT 29870; principal; 2024-09-19 07:30)
DX: M23.341 Other meniscus derangements, anterior horn of lateral meniscus, right knee (principal); M65.861 Other synovitis and tenosynovitis, right lower leg; M22.41 Chondromalacia patellae, right knee; Z79.84 Long term (current) use of oral hypoglycemic drugs; F17.290 Nicotine dependence, other tobacco product, uncomplicated; E66.9 Obesity, unspecified; Z68.33 Body mass index [BMI] 33.0-33.9, adult
CPT/HCPCS: 29881; 29876; 82948; J0690; A9270; J2003; J2250; J2405; J2704; J3010; J7120

== ENCOUNTER 2024-11-10 09:26 | Outpatient (CLI) | payer BC, SELFPAY ==
--- OUTSIDE RECORDS SUMMARY | 2024-11-10 09:43 | XMS_ITS | Encounter Summary ---
Author Organization 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 Gender Identity Not on file Sexual Orientation [...] on filedocumented in this encounter Care Teams Beauty Consultant Relationship Specialty Start Date End Date Brianna Salamanca MD [address] [place] [address] PCP - General Family Medicine 05/23/22 Keyshawn Stoll MD [address] DIV IM PULMONARY AND CCM, [address] [place] [address] Referring Physician Pulmonary Disease 08/22/22 José Miguel Haines MD [address] DIV IM PULMONARY AND CCM, [address] [place] [address] Medical Oncologist/Pest Locator Hematology and Oncology 08/22/22 Claudine May MD [address] [place] [address] Radiation Oncologist Radiation Oncology 10/18/22 Mya Cooley NP [address] [place] [address] Nurse Practitioner Radiation Oncology 05/29/23 documented as of this encounter
--- OUTSIDE RECORDS SUMMARY | 2024-11-10 09:44 | XMS_ITS | Encounter Summary ---
Author Organization [facility] Healthcare Address [address] [place] [address] Care Team Providers Care Manager Music Name Role Phone Parth Munoz MD Primary Care Provider [phone] Brianna Salamanca MD Primary Care Provider Keyshawn Stoll MD Unavailable José Miguel Haines MD Unavailable Claudine May MD Unavailable [phone] Mya Cooley NP Unavailable Encounter Details Date Type Department Care Team (Late st Contact Info) Description 05/17/2022 Telephone [facility] Interventional Pulmonology 1 [place] [address] Katja Baumann, RN Social History Tobacco Use [...] on file Legal Sex Female 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 AM CHECKER/STOCKER Gender Identity Not on file Sexual Orientation Not on file documented as of this encounter Functional Status * AUDIT-C Score Answer Date of Assessment Author 0 [...] on filedocumented in this encounter Care Teams Manager Music Relationship Specialty Start Date End Date Parth Munoz MD PCP - General 02/09/11 05/22/22 Brianna Salamanca MD [address] [place] [address] PCP - General Family Medicine 05/23/22 Keyshawn Stoll MD [address] DIV IM PULMONARY AND CCM, [address] [address] Referring Physician Pulmonary Disease 08/22/22 José Miguel Haines MD [address] DIV IM PULMONARY AND CCM, [facility] [address] [place] [address] Medical Oncologist/Applied Technologist Hematology and Oncology 08/22/22 Claudine May MD [address] [place] [address] Radiation Oncologist Radiation Oncology 10/18/22 Mya Cooley NP [address] [facility][1] [address] [place] [address] Nurse Practitioner Radiation Oncology 05/29/23 documented as of this encounter
--- OUTSIDE RECORDS SUMMARY | 2024-11-10 09:44 | XMS_ITS | Encounter Summary ---
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 Gender Identity Not on file Sexual Orientation [...] on filedocumented in this encounter Care Teams Filler Shredder Helper Relationship Specialty Start Date End Date Brianna Salamanca MD [address] [place] [address] PCP - General Family Medicine 05/23/22 Keyshawn Stoll MD [address] DIV IM PULMONARY AND CCM, [address] [place] [address] Referring Physician Pulmonary Disease 08/22/22 José Miguel Haines MD [address] DIV IM PULMONARY AND CCM, [address] [place] [address] Medical Oncologist/Auto Body Customizer Hematology and Oncology 08/22/22 Claudine May MD [address] [place] [address] Radiation Oncologist Radiation Oncology 10/18/22 Mya Cooley NP [address] [place] [address] Nurse Practitioner Radiation Oncology 05/29/23 documented as of this encounter
--- OUTSIDE RECORDS SUMMARY | 2024-11-10 09:44 | XMS_ITS | Clinical Summary ---
Author Organization [facility] Address [address] [place] [address] Care Team Providers Care Filter Cleaner Name Role Phone Brianna Salamanca MD Primary [...] Description 09/09/2024 10:40 AM CDT Office Visit [facility] Advanced Medicine Radiation Oncology [address] [facility] [place] [address] Mya Cooley NP Malignant neoplasm of lower lobe of left lung (HCC) [C34.32]; Primary cancer of right lower lobe of lung (HCC) [C34.31] 09/09/2024 9:50 AM CDT - 09/09/2024 11:59 PM CDT Hospital Encounter [facility] [address] [place] [address] Malignant neoplasm of lower lobe of left lung (HCC) [C34.32]; Primary cancer of right lower lobe of lung (HCC) [C34.31] Discharge Disposition: Discharge to home or self care 09/09/2024 Documentation [facility] Clinical Trial 1 [place] [address] Sherlyn Ware RN from Last 3 Months [...] Date Comments COPD (chronic obstructive pulmonary disease) Diabetes mellitus (HCC) Hypertension Sleep apnea Wears [...] on file 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 Mya Cooley NP [facility] CT PROCEDURES Final Result * (ABNORMAL) eGFR (09/07/2022 3:20 PM CDT) eGFR 70(L) 90 - 130 mL/min/1. 73 m2 [facility] Comment: Interpretive Data Reference Interval Normal [...] was last reviewed 2021. Testing performed by: [facility], [address] [place] [id number] Blood 09/07/2022 3:20 PM CDT 09/07/2022 3:24 PM CDT José Miguel Haines MD LAB BLOOD ORDERABLES Final Result [facility] Department [place] [address] from Last 3 Months or Most Recently Relevant to Health Maintenance Insurance [employer] ACCESS [employer] ACCESS Care Teams Filter Cleaner Relationship Specialty Start Date End Date Brianna Salamanca MD [address] [place] [address] PCP - General Family Medicine 05/23/22 Keyshawn Stoll MD [address] DIV IM PULMONARY AND CCM, [address] [place] [address] Referring Physician Pulmonary Disease 08/22/22 José Miguel Haines MD [address] DIV IM PULMONARY AND CCM, [address] [place] [address] Medical Oncologist/Partner Integration Planner Hematology and Oncology 08/22/22 Claudine May MD [address] [place] [address] Radiation Oncologist Radiation Oncology 10/18/22 Mya Cooley, NEHA [address] [place] [address] Nurse Practitioner Radiation Oncology 05/29/23
--- OUTSIDE RECORDS SUMMARY | 2024-11-10 09:44 | XMS_ITS ---
Author Organization [facility] Address [address] [place] [address] Care Team Providers Care Solutions Executive Security Name Role Phone Brianna Salamanca MD Primary Care Provider Keyshawn Stoll MD Unavailable José Miguel Haines MD Unavailable [phone] Claudine May MD Unavailable Mya Cooley NP Unavailable [phone] Active Problems Problem Noted Date Diagnosed Date [...]
--- OUTSIDE RECORDS SUMMARY | 2024-11-10 09:44 | XMS_ITS | Encounter Summary ---
Author Organization [facility] Healthcare Address [address] [place] [address] Care Team Providers Care Treater Name Role Phone Parth Munoz MD Primary Care Provider [phone] Brianna Salamanca MD Primary Care Provider Keyshawn Stoll MD Unavailable José Miguel Haines MD Unavailable Claudine May MD Unavailable Mya Cooley NP Unavailable Encounter Details Date Type Department Care Team (Late st Contact Info) Description 05/17/2022 Telephone [facility] Interventional Pulmonology 1 [place] [address] Katja Baumann, RN Social History Tobacco Use [...] on file Legal Sex Female 2:01 AM NOZZLE TENDER Gender Identity Not on file Sexual [...] pre-procedure instructions in the mail, email, or Orlumethart. Instructed the patient to arrive at [facility] Admitting/Registration Office on [facility] on tomorrow 05/18/22 at 0730. 3. [...] supply to get themselves to and from [facility]. 5. Patient stated that patient does use a CPAP or BIPAP device. Instructed patient, if they use a CPAP or BIPAP, to bring in their device or bring documentation of their CPAP/BIPAP settings with themto their appointment. 6. The patient will need a rivet driver or will need to arrange their [...] are familiar on the location of the [facility] Admitting Office for pre- procedure registration and any lab work that may be ordered. Discussed that the patient is not to go to the [facility] for their appointment. Confirmed they are aware of what time to arrive at the [facility] Admitting Office. 12. I reviewed the following [facility] Visitor Policy that was updated 06/2021 with [...] wear a face covering upon entrance to [facility]. If you or your visitors do not [...] on filedocumented in this encounter Care Teams Treater Relationship Specialty Start Date End Date Parth Munoz MD PCP - General 02/09/11 05/22/22 Brianna Salamanca MD [address] [address] PCP - General Family Medicine 05/23/22 Keyshawn Stoll MD [address] DIV IM PULMONARY AND CCM, [address] [place] [address] Referring Physician Pulmonary Disease 08/22/22 José Miguel Haines MD [address] DIV IM PULMONARY AND CCM, [address] [place] [address] Medical Oncologist/Forcer Maker Hematology and Oncology 08/22/22 Claudine May MD [address] [place] [address] Radiation Oncologist Radiation Oncology 10/18/22 Mya Cooley NP [address] [place] [address] Nurse Practitioner Radiation Oncology 05/29/23 documented as of this encounter
--- OUTSIDE RECORDS SUMMARY | 2024-11-10 09:44 | XMS_ITS | Encounter Summary ---
Author Organization [facility] Address [address] [place] [address] Phone Care Team Providers Care Practice Administrator Name Role Phone Parth Munoz MD Primary Care Provider [phone] Brianna Salamanca MD Primary Care Provider Keyshawn Stoll MD Unavailable José Miguel Haines MD Unavailable Claudine May MD Unavailable [phone] Mya Cooley NP Unavailable [phone] Encounter Details Date Type Department Care Team (Latest Contact Info) Description 08/16/2021 Orders Only [facility] Scanning, Provider Social History Tobacco Use Types Packs/Day Years Used Date Smoking Tobacco: Never Assessed Comments Unknown Sex and Gender Information Value Date Recorded Sex Assigned at Not on file Legal Sex Female 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 Gender Identity Not on file Sexual [...] on filedocumented in this encounter Care Teams Practice Administrator Relationship Specialty Start Date End Date Parth Munoz MD PCP - General 02/09/11 05/22/22 Brianna Salamanca MD [address] [place] [address] PCP - General Family Medicine 05/23/22 Keyshawn Stoll MD [address] DIV IM PULMONARY AND CCM, [address] [place] [address] Referring Physician Pulmonary Disease 08/22/22 José Miguel Haines MD [address] DIV IM PULMONARY AND CCM, [address] [place] [address] Medical Oncologist/Fish Protector Hematology and Oncology 08/22/22 Claudine May MD [address] [place] [address] Radiation Oncologist Radiation Oncology 10/18/22 Mya Cooley NP [address] [place] [address] Nurse Practitioner Radiation Oncology 05/29/23 documented as of this encounter
--- OUTSIDE RECORDS SUMMARY | 2024-11-10 09:44 | XMS_ITS | Encounter Summary ---
Author Organization [facility] Address [address] [facility] [address] Phone Care Team Providers Care Plant Wire Chief Name Role Phone Parth Munoz MD Primary Care Provider [phone] Brianna Salamanca MD Primary Care Provider Keyshawn Stoll MD Unavailable [phone] José Miguel Haines MD Unavailable Claudine May MD Unavailable Mya Cooley NP Unavailable [phone] Encounter Details Date Type Department Care Team (Latest Contact Info) Description 03/15/2022 Orders Only [facility] Scanning, Provider Social History Tobacco Use Types Packs/Day Years Used Date Smoking Tobacco: Never Assessed Comments Unknown Sex and Gender Information Value Date Recorded Sex Assigned at Not on file 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 Gender Identity Not on file Sexual Orientation [...] on filedocumented in this encounter Care Teams Plant Wire Chief Relationship Specialty Start Date End Date Parth Munoz MD PCP - General 02/09/11 05/22/22 Brianna Salamanca MD [address] [place] [address] PCP - General Family Medicine 05/23/22 Keyshawn Stoll MD [address] DIV IM PULMONARY AND CCM, [address] [place] [address] Referring Physician Pulmonary Disease 08/22/22 José Miguel Haines MD [address] DIV IM PULMONARY AND CCM, [facility] [address] [place] [address] Medical Oncologist/Cytogenetic Technologist Hematology and Oncology 08/22/22 Claudine May MD [address] [place] [address] Radiation Oncologist Radiation Oncology 10/18/22 Mya Cooley NP [address] [place] [address] Nurse Practitioner Radiation Oncology 05/29/23 documented as of this encounter
--- OUTSIDE RECORDS SUMMARY | 2024-11-10 09:44 | XMS_ITS | Clinical Summary ---
Author Organization [facility] Address [address] [facility] [place] [address] Care Team Providers Care Equipment Or Machinery Cleaner Name Role Phone Rupinder Gómez APRN-TICKET COLLECTOR Primary Care Provider [phone] Source Comments [email or web address],non-owned Affiliates and Associated Physician Practices is amultiple site organization consisting of ambulatory clinics and hospital sitesin [place], [place]. This disclosure is being madepursuant to the Care Everywhere program and may not contain all information available regarding this patient. Last updated 17.[email or web address] Social History Tobacco Use Types Packs/Day Years [...] patient's age to complete this topic Insurance [place] [address] Care Teams Equipment Or Machinery Cleaner Relationship Specialty Start Date End Date Rupinder Gómez APRN-COLE [address] [place] [address] PCP - General Nurse Practitioner Family 12/05/23
--- OUTSIDE RECORDS SUMMARY | 2024-11-10 09:44 | XMS_ITS | Encounter Summary ---
Author Organization [facility] Address [address] [place] [address] Phone Care Team Providers Care Direct Support Professional Caregiver Name Role Phone Parth Munoz MD Primary Care Provider [phone] Brianna Salamanca MD Primary Care Provider Keyshawn Stoll MD Unavailable [phone] José Miguel Haines MD Unavailable Claudine May MD Unavailable [phone] Mya Cooley NP Unavailable [phone] Encounter Details Date Type Department Care Team (Latest Contact Info) Description 10/17/2021 Orders Only [facility] Scanning, Provider Social History Tobacco Use Types Packs/Day Years Used Date Smoking Tobacco: Never Assessed Comments Unknown Sex and Gender Information Value Date Recorded Sex Assigned at Not on file Legal Sex Female 2:01 AM DIRECTOR DIGITAL SALES Gender Identity Not on file Sexual Orientation [...] on filedocumented in this encounter Care Teams Direct Support Professional Caregiver Relationship Specialty Start Date End Date Parth Munoz MD PCP - General 02/09/11 05/22/22 Brianna Salamanca MD [address] [place] [address] PCP - General Family Medicine 05/23/22 Keyshawn Stoll MD [address] DIV IM PULMONARY AND CCM, [address] [place] [address] Referring Physician Pulmonary Disease 08/22/22 José Miguel Haines MD [address] DIV IM PULMONARY AND CCM, [address] [place] [address] Medical Oncologist/Meter And Service Line Inspector Hematology and Oncology 08/22/22 Claudine May MD [address] [place] [address] Radiation Oncologist Radiation Oncology 10/18/22 Mya Cooley NP [address] [place] [address] Nurse Practitioner Radiation Oncology 05/29/23 documented as of this encounter
[2024-11-10 10:20] LABS: Hemoglobin A1C 6.9 % (<5.7)
[2024-11-10 10:27] LABS: Alanine Aminotransferase 23 U/L (6-35); Albumin Level 4.3 g/dL (3.5-5.1); Alkaline Phosphatase 164 U/L (38-126); Anion Gap 10 mmol/L (4-12); Aspartate Amino Transferase 28 U/L (14-36); Bilirubin,Total 0.5 mg/dL (0.2-1.3); Blood Urea Nitrogen 15 mg/dL (7-17); Calcium 9.9 mg/dL (8.4-10.2); Carbon Dioxide 24 mmol/L (22-30); Chloride 106 mmol/L (98-107); Estimated Glomerular Filt Rate 38; Glucose 183 mg/dL (65-110); Potassium 4.4 mmol/L (3.4-5.0); Sodium 140 mmol/L (137-145); Total Protein 7.7 g/dL (6.3-8.2)
== END 2024-11-10 09:27 | disposition home or self-care (01) ==
LOC: ANHLAB 09:27
PROVIDERS: PCP Family Medicine; Visit Provider Family Medicine
DX: E11.40 Type 2 diabetes mellitus with diabetic neuropathy, unspecified (principal); K75.81 Nonalcoholic steatohepatitis (NASH); R94.4 Abnormal results of kidney function studies
CPT/HCPCS: 36415; 80053; 83036

== ENCOUNTER 2025-01-08 09:02 | Outpatient (CLI) | payer BC, SELFPAY ==
[2025-01-08 10:51] LABS: Anion Gap 10 mmol/L (4-12); Blood Urea Nitrogen 15 mg/dL (7-17); Calcium 9.5 mg/dL (8.4-10.2); Carbon Dioxide 23 mmol/L (22-30); Chloride 107 mmol/L (98-107); Estimated Glomerular Filt Rate 44; Glucose 137 mg/dL (65-110); Potassium 4.3 mmol/L (3.4-5.0); Sodium 140 mmol/L (137-145)
--- OUTSIDE RECORDS SUMMARY | 2025-01-08 17:50 | XMS_ITS | Encounter Summary ---
Author Organization [facility] Address [address] [facility] [place] [address] Phone Care Team Providers Care Wastewater Analyst Name Role Phone Brianna Salamanca MD Primary Care Provider Keyshawn Stoll MD Unavailable [phone] José Miguel Haines MD Unavailable [phone] Claudine May MD Unavailable Mya Cooley NP Unavailable [phone] Encounter Details Date Type Department Care Team [...] on file Legal Sex Female 2:01 AM STRIPPER PRELIMINARY Gender Identity Not on file Sexual Orientation [...] on filedocumented in this encounter Care Teams Wastewater Analyst Relationship Specialty Start Date End Date Brianna Salamanca MD [address] [place] [address] PCP - General Family Medicine 05/23/22 Keyshawn Stoll MD [address] DIV IM PULMONARY AND CCM, [address] [place] [address] Referring Physician Pulmonary Disease 08/22/22 José Miguel Haines MD [address] DIV IM PULMONARY AND CCM, [address] [place] [address] Medical Oncologist/Copy Machine Operator Hematology and Oncology 08/22/22 Claudine May MD [address] [place] [address] Radiation Oncologist Radiation Oncology 10/18/22 Mya Cooley NP [address] [place] [address] Nurse Practitioner Radiation Oncology 05/29/23 documented as of this encounter
--- OUTSIDE RECORDS SUMMARY | 2025-01-08 17:50 | XMS_ITS | Encounter Summary ---
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 Gender Identity Not on file Sexual Orientation Not on file documented as of this encounter Functional Status * Question Answer Date of Assessment Author BP Location Left arm 08/24/2022 7:50 AM CDT Sherlyn Jackson RMA * Alcohol Withdrawal BP Hierarchy Answer Date of Assessment Author 62 08/24/2022 7:50 AM CDT Sherlyn Guerrero RMA documented as of this encounter Plan of [...] on filedocumented in this encounter Care Teams Pipe Bender Relationship Specialty Start Date End Date Brianna Salamanca MD [address] [place] [address] PCP - General Family Medicine 05/23/22 Keyshawn Stoll MD [address] DIV IM PULMONARY AND CCM, [address] [place] [address] Referring Physician Pulmonary Disease 08/22/22 José Miguel Haines MD [address] DIV IM PULMONARY AND CCM, [address] [place] [address] Medical Oncologist/Wood Planer Hematology and Oncology 08/22/22 Claudine May MD [address] [place] [address] Radiation Oncologist Radiation Oncology 10/18/22 Mya Cooley NP [address] [facility] [address] [place] [address] Nurse Practitioner Radiation Oncology 05/29/23 documented as of this encounter
--- OUTSIDE RECORDS SUMMARY | 2025-01-08 17:51 | XMS_ITS | Encounter Summary ---
Author Organization [facility] Address [address] [place] [address] Phone Care Team Providers Care Pathology Specialist Name Role Phone Parth Munoz MD Primary Care Provider [phone] Brianna Salamanca MD Primary Care Provider Keyshawn Stoll MD Unavailable José Miguel Haines MD Unavailable Claudine May MD Unavailable Mya Cooley NP Unavailable [phone] Encounter Details Date Type Department Care Team (Latest Contact Info) Description 03/15/2022 Orders Only [facility] Scanning, Provider Social History Tobacco Use Types Packs/Day Years Used Date Smoking Tobacco: Never Assessed Comments Unknown Sex and Gender Information Value Date Recorded Sex Assigned at Not on file Legal 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 Female 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 Gender Identity Not on file Sexual Orientation [...] on filedocumented in this encounter Care Teams Pathology Specialist Relationship Specialty Start Date End Date Parth Munoz MD PCP - General 02/09/11 05/22/22 Brianna Salamanca MD [address] [place] [address] PCP - General Family Medicine 05/23/22 Keyshawn Stoll MD [address] DIV IM PULMONARY AND CCM, [address] [place] [address] Referring Physician Pulmonary Disease 08/22/22 José Miguel Haines MD [address] DIV IM PULMONARY AND CCM, [facility] [address] [place] [address] Medical Oncologist/Apartment Coordinator Hematology and Oncology 08/22/22 Claudine May MD [address] [place] [address] Radiation Oncologist Radiation Oncology 10/18/22 Mya Cooley NP [address] [place] [address] Nurse Practitioner Radiation Oncology 05/29/23 documented as of this encounter
--- OUTSIDE RECORDS SUMMARY | 2025-01-08 17:51 | XMS_ITS | Clinical Summary ---
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 SPECIALIST Gender Identity Not on file Sexual [...] Additional history exists Influenza Vaccine (#1) 2024 2, 01/12/2021, 10/24/2019, Additional history exists DTaP/Tdap/Td Vaccine (2 - Td or Tdap) 11/21/2025 11/22/2015 Zoster Vaccine Completed 02/13/2020, 12/15/2019 Procedures Procedure Name Priority Date/Time Associated Diagnosis Comments EGFR STAT 09/07/2022 3:20 PM CDT Malignant neoplasm of lung, unspecified laterality, unspecified part of lung (HCC) from Last 3 Months or Most Recently Relevant to Health Maintenance Results * (ABNORMAL) eGFR (09/07/2022 3:20 PM CDT) eGFR 70(L) 90 - 130 mL/min/1. 73 m2 [facility] Comment: Interpretive Data Reference Interval Normal [...] was last reviewed 2021. Testing performed by: [facility], [address] [place] [id number] Blood 09/07/2022 3:20 PM CDT 09/07/2022 3:24 PM CDT José Miguel Haines MD LAB BLOOD ORDERABLES Final Result Performing Organization Address City/State/[facility] Co de Phone Number VICTOR HUGONER [facility] Department [place] [address] from Last 3 Months or Most Recently Relevant to Health Maintenance Insurance ANTHEM ACCESS ANTHEM ACCESS Care Teams Waterproof Bag Sewer Relationship Specialty Start Date End Date Brianna Salamanca MD [address] [facility] [address] [place] [address] PCP - General Family Medicine 05/23/22 Keyshawn Stoll MD [address] DIV IM PULMONARY AND CCM, [address] [place] [address] Referring Physician Pulmonary Disease 08/22/22 José Miguel Haines MD [address] DIV IM PULMONARY AND CCM, [address] [place] [address] Medical Oncologist/Fish Conservationist Hematology and Oncology 08/22/22 Claudine May MD [address] [place] [address] Radiation Oncologist Radiation Oncology 10/18/22 Mya Cooley NP [address] [place] [address] Nurse Practitioner Radiation Oncology 05/29/23
--- OUTSIDE RECORDS SUMMARY | 2025-01-08 17:51 | XMS_ITS ---
Author Organization [facility] Address [address] [place] [address] Care Team Providers Care Child Attendant Name Role Phone Brianna Salamanca MD Primary Care Provider Keyshawn Stoll MD Unavailable José Miguel Haines MD Unavailable [phone] Claudine May MD Unavailable [phone] May Cooley NP Unavailable [phone] Active Problems Problem Noted Date Diagnosed Date [...]
--- OUTSIDE RECORDS SUMMARY | 2025-01-08 17:51 | XMS_ITS | Clinical Summary ---
Author Organization [facility] Address [address] [facility] [address] Care Team Providers Care Stretching Press Operator Name Role Phone Rupinder Gómez APRN-REGISTERED NURSE CARDIAC TELEMETRY Primary Care Provider [phone] Source Comments [facility],non-owned Affiliates and Associated Physician Practices is amultiple site organization consisting of ambulatory clinics and hospital sitesin [place], [place], [place] and [place]. This disclosure is being madepursuant to the Care Everywhere program and may not contain all information available regarding this patient. Last updated 17.[facility] Social History Tobacco Use Types Packs/Day Years [...] of 2) 02/06/2010 MAMMOGRAM 03/11/2022 03/11/2020, 03/13/2018 DEPRESSION SCREENING 03/05/2024 COVID-19 VACCINE ( season) 2024 09/07/2021, 01/26/2021, 06/19/2020, Additional history exists INFLUENZA VACCINE (#1) 2024 2, 01/12/2021, 10/24/2019, [...] patient's age to complete this topic Insurance [place] [address] [address] Care Teams Stretching Press Operator Relationship Specialty Start Date End Date Rupinder Gómez APRN-COLE [address] [place] [address] PCP - General Nurse Practitioner Family 12/05/23
--- OUTSIDE RECORDS SUMMARY | 2025-01-08 17:51 | XMS_ITS | Encounter Summary ---
Author Organization [facility] Healthcare Address [address] [place] [address] Care Team Providers Care Guard Driver Name Role Phone Parth Munoz MD Primary Care Provider [phone] Brianna Salamanca MD Primary Care Provider Keyshawn Stoll MD Unavailable [phone] José Miguel Haines MD Unavailable Claudine May MD Unavailable [phone] Mya Cooley NP Unavailable Encounter Details Date Type Department Care Team (Late st Contact Info) Description 05/17/2022 Telephone [facility] Interventional Pulmonology [address] [place] [address] Katja Baumann, RN Social History Tobacco Use [...] file Legal Sex Female 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 DIRECTOR BIOMEDICAL 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 Gender Identity Not on file Sexual Orientation Not on file documented as of this encounter Functional Status * Question Answer Date of Assessment Author BP Location Left arm 05/18/2022 7:55 AM Tess Aguilar RN * Question Answer Date of Assessment Author Gordon Fall Risk Score (Score >= 45 places fall precaution order) 20 05/18/2022 8:00 AM Tess Bang RN Prior Fall Event (Autopopulated from EMR) None found 05/18/2022 8:00 AM Akila Bang RN * Fall Risk Interventions Question Answer Date of Assessment Author All Low Fall Interventions Applied Yes 05/18/2022 8:00 AM Tess Bang RN All Moderate Fall Interventions Applied Yes 05/18/2022 8:00 AM Tess Bang RN All High Fall Risk Interventions Applied No 05/18/2022 8:00 AM Tess Bang RN All High Risk Interventions EXCEPT: Bed alarm;Chair alarm 05/18/2022 8:00 AM Tess Bang RN Additional Interventions Applied Constant observation 05/18/2022 8:00 AM Tess Bang RN * Alcohol Withdrawal BP Hierarchy Answer Date of Assessment Author 45 05/18/2022 9:34 AM Radha Reynolds RN * AUDIT-C Score Answer Date of Assessment Author 0 05/18/2022 7:57 AM Luz Bang RN * Alcohol Use Question Answer Date of Assessment Author Q1: [...] Never 05/18/2022 7:57 AM Tess Bang RN * Question Answer Date of Assessment Author MAP (mmHg) 62 05/18/2022 9:23 AM Tess Aguilar RN * Question Answer Date of Assessment Author BP Location Left arm 05/18/2022 7:55 AM Tess Aguilar RN * Fall Risk Interventions Question Answer Date of Assessment Author All Low Fall Interventions Applied Yes 05/18/2022 8:00 AM Tess Bang RN All Moderate Fall Interventions Applied Yes 05/18/2022 8:00 AM Tess Bang RN All High Fall Risk Interventions Applied No 05/18/2022 8:00 AM Tess Bang RN All High Risk Interventions EXCEPT: Bed alarm;Chair alarm 05/18/2022 8:00 AM Tess Bang RN Additional Interventions Applied Constant observation 05/18/2022 8:00 AM Tess Bang RN documented as of [...] pre-procedure instructions in the mail, email, or Albiorexhart. Instructed the patient to arrive at [facility] Admitting/Registration Office on [facility] on tomorrow 05/18/22 at 0730. 3. Instructed [...] supply to get themselves to and from [facility]. 5. Patient stated that patient does use a CPAP or BIPAP device. Instructed patient, if they use a CPAP or BIPAP, to bring in their device or bring documentation of their CPAP/BIPAP settings with themto their appointment. 6. The patient will need a warehouse associate driver or will need to arrange their [...] are familiar on the location of the [facility] Admitting Office for pre- procedure registration and any lab work that may be ordered. Discussed that the patient is not to go to the [facility] for their appointment. Confirmed they are aware of what time to arrive at the [facility] Admitting Office. 12. I reviewed the following [facility] Visitor Policy that was updated 06/2021 with [...] wear a face covering upon entrance to [facility]. If you or your visitors do not [...] on filedocumented in this encounter Care Teams Guard Driver Relationship Specialty Start Date End Date Parth Munoz MD PCP - General 02/09/11 05/22/22 Brianna Salamanca MD [address] [address] PCP - General Family Medicine 05/23/22 Keyshawn Stoll MD [address] DIV IM PULMONARY AND CCM, [facility] [address] [place] [address] Referring Physician Pulmonary Disease 08/22/22 José Miguel Haines MD [address] DIV IM PULMONARY AND CCM, [facility] [address] [place] [address] Medical Oncologist/Studio Sales Associate Hematology and Oncology 08/22/22 Claudine May MD [address] [place] [address] Radiation Oncologist Radiation Oncology 10/18/22 Mya Cooley NP [address] [place] [address] Nurse Practitioner Radiation Oncology 05/29/23 documented as of this encounter
--- OUTSIDE RECORDS SUMMARY | 2025-01-08 17:51 | XMS_ITS | Encounter Summary ---
Author Organization [facility] Address [address] [place] [address] Phone Care Team Providers Care Religious Education Teacher Name Role Phone Parth Munoz MD Primary Care Provider [phone] Brianna Salamanca MD Primary Care Provider Keyshawn Stoll MD Unavailable [phone] José Miguel Haines MD Unavailable Claudine May MD Unavailable [phone] Mya Cooley NP Unavailable [phone] Encounter Details Date Type Department Care Team (Latest Contact Info) Description 10/17/2021 Orders Only [facility] Scanning, Provider Social History Tobacco Use Types Packs/Day Years Used Date Smoking Tobacco: Never Assessed Comments Unknown Sex and Gender Information Value Date Recorded Sex Assigned at Not on file Legal Sex Female 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 PROGRAM 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 CLERK Gender Identity Not on file Sexual Orientation [...] on filedocumented in this encounter Care Teams Religious Education Teacher Relationship Specialty Start Date End Date Parth Munoz MD PCP - General 02/09/11 05/22/22 Brianna Salamanca MD [address] [place] [address] PCP - General Family Medicine 05/23/22 Keyshawn Stoll MD [address] DIV IM PULMONARY AND CCM, [address] [place] [address] Referring Physician Pulmonary Disease 08/22/22 José Miguel Haines MD [address] DIV IM PULMONARY AND CCM, [address] [place] [address] Medical Oncologist/Animal Park Code Enforcement Officer Hematology and Oncology 08/22/22 Claudine May MD [address] [place] [address] Radiation Oncologist Radiation Oncology 10/18/22 Mya Cooley NP [address] [place] [address] Nurse Practitioner Radiation Oncology 05/29/23 documented as of this encounter
--- OUTSIDE RECORDS SUMMARY | 2025-01-08 17:51 | XMS_ITS | Encounter Summary ---
Author Organization [facility] Healthcare Address [address] [place] [address] Care Team Providers Care Multi Disciplined Language Analyst Name Role Phone Parth Munoz MD Primary Care Provider [phone] Brianna Salamanca MD Primary Care Provider Keyshawn Stoll MD Unavailable José Miguel Haines MD Unavailable [phone] Claudine May MD Unavailable [phone] Mya Cooley NP Unavailable Encounter Details Date Type Department Care Team (Late st Contact Info) Description 05/17/2022 Telephone [facility] Interventional Pulmonology [address] [place] [address] Katja Baumann, RN Social History Tobacco Use [...] on file 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 Gender Identity Not on file Sexual Orientation [...] on filedocumented in this encounter Care Teams Multi Disciplined Language Analyst Relationship Specialty Start Date End Date Parth Munoz MD PCP - General 02/09/11 05/22/22 Brianna Salamanca MD [address] [place] [address] PCP - General Family Medicine 05/23/22 Keyshawn Stoll MD [address] DIV IM PULMONARY AND CCM, [address] [address] Referring Physician Pulmonary Disease 08/22/22 José Miguel Haines MD [address] DIV IM PULMONARY AND CCM, [address] [address] Medical Oncologist/Tip Finisher Hematology and Oncology 08/22/22 Claudine May MD [address] [place] [address] Radiation Oncologist Radiation Oncology 10/18/22 Mya Cooley NP [address] [facility] [address] [place] [address] Nurse Practitioner Radiation Oncology 05/29/23 documented as of this encounter
--- OUTSIDE RECORDS SUMMARY | 2025-01-08 17:51 | XMS_ITS | Encounter Summary ---
Author Organization [facility] Address [address] [place] [address] Phone Care Team Providers Care Station Gateman Name Role Phone Parth Munoz MD Primary Care Provider [phone] Brianna Salamanca MD Primary Care Provider Keyshawn Stoll MD Unavailable [phone] José Miguel Haines MD Unavailable Claudine May MD Unavailable [phone] Mya Cooley NP Unavailable [phone] Encounter Details Date Type Department Care Team (Latest Contact Info) Description 08/16/2021 Orders Only [facility] Scanning, Provider Social History Tobacco Use Types Packs/Day Years Used Date Smoking Tobacco: Never Assessed Comments Unknown Sex and Gender Information Value Date Recorded Sex Assigned at Not on file 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 Gender Identity Not on file Sexual Orientation [...] on filedocumented in this encounter Care Teams Station Gateman Relationship Specialty Start Date End Date Parth Munoz MD PCP - General 02/09/11 05/22/22 Brianna Salamanca MD [address] [place] [address] PCP - General Family Medicine 05/23/22 Keyshawn Stoll MD [address] DIV IM PULMONARY AND CCM, [address] [place] [address] Referring Physician Pulmonary Disease 08/22/22 José Miguel Haines MD [address] DIV IM PULMONARY AND CCM, [address] [place] [address] Medical Oncologist/Surgical Aides Teacher Hematology and Oncology 08/22/22 Claudine May MD [address] [place] [address] Radiation Oncologist Radiation Oncology 10/18/22 Mya Cooley NP [address] [place] [address] Nurse Practitioner Radiation Oncology 05/29/23 documented as of this encounter
== END 2025-01-08 09:03 | disposition home or self-care (01) ==
LOC: ANHLAB 09:04
PROVIDERS: PCP Family Medicine; Visit Provider Physician Assistant
DX: N17.9 Acute kidney failure, unspecified (principal)
CPT/HCPCS: 36415; 80048

== ENCOUNTER 2025-01-13 10:11 | Outpatient (CLI) | payer BC, SELFPAY ==
--- NOTE | ~2025-01-13 | US_ITS ---
Examination: Ultrasound of the retroperitoneum including kidneys and bladder. Clinical History: N18.32 - Chronic kidney disease, stage 3b . Comparison: None available. Findings: Right kidney: 9 cm. Cortical thinning. Normal echogenicity. No collecting system dilatation. No shadowing calculi. Left kidney: 12 cm. Normal echogenicity. No collecting system dilatation. No shadowing calculi. Urinary bladder: No wall thickening or focal abnormality. IMPRESSION: 1. No acute findings. Reviewed, dictated and finalized at location R. R MAIN INSTALLER HELPER IMPRESSION: 1. No acute findings.
== END 2025-01-13 10:12 | disposition home or self-care (01) ==
PROVIDERS: PCP Internal Medicine Nephrology; Visit Provider Physician Assistant
DX: N18.32 Chronic kidney disease, stage 3b (principal)
CPT/HCPCS: 76770

== ENCOUNTER 2025-01-14 14:23 | Outpatient (CLI) | payer BC, SELFPAY ==
[2025-01-14 14:46] LABS: Hematocrit 32.9 % (37.0-47.0); Hemoglobin 10.7 g/dL (12.0-15.0); Mean Corpuscular HGB Conc 32.5 g/dl (32-36); Mean Corpuscular Hemoglobin 32.0 pg (26-34); Mean Corpuscular Volume 98.5 fl (80-100); Platelet Count Result 203 k/mm3 (150-375); Red Blood Count 3.34 M/mm3 (4.2-5.4); White Blood Count 5.4 K/mm3 (4.5-10.0)
[2025-01-14 15:10] LABS: Albumin Level 4.6 g/dL (3.5-5.1); Anion Gap 9 mmol/L (4-12); Blood Urea Nitrogen 11 mg/dL (7-17); Calcium 9.7 mg/dL (8.4-10.2); Carbon Dioxide 24 mmol/L (22-30); Chloride 108 mmol/L (98-107); Estimated Glomerular Filt Rate 42; Glucose 61 mg/dL (65-110); Potassium 3.8 mmol/L (3.4-5.0); Sodium 141 mmol/L (137-145)
[2025-01-14 15:20] LABS: Parathyroid Intact 61.4 pg/mL (14.5-75.2)
--- OUTSIDE RECORDS SUMMARY | 2025-01-14 15:21 | XMS_ITS ---
Author Organization [facility] Address [address] [place] [address] Care Team Providers Care Clinical Cytopathologist Name Role Phone Brianna Salamanca MD Primary Care Provider Keyshawn Stoll MD Unavailable José Miguel Haines MD Unavailable [phone] Claudine May MD Unavailable [phone] Mya Cooley NP Unavailable [phone] Active Problems Problem Noted Date Diagnosed Date [...]
--- OUTSIDE RECORDS SUMMARY | 2025-01-14 15:21 | XMS_ITS | Encounter Summary ---
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 Gender Identity Not on file Sexual Orientation [...] on filedocumented in this encounter Care Teams Ivory Carver Relationship Specialty Start Date End Date Brianna Salamanca MD [address] [place] [address] PCP - General Family Medicine 05/23/22 Keyshawn Stoll MD [address] DIV IM PULMONARY AND CCM, [address] [place] [address] Referring Physician Pulmonary Disease 08/22/22 José Miguel Haines MD [address] DIV IM PULMONARY AND CCM, [address] [place] [address] Medical Oncologist/Gizzard Skin Remover Hematology and Oncology 08/22/22 Claudine May MD [address] [place] [address] Radiation Oncologist Radiation Oncology 10/18/22 Mya Cooley NP [address] [place] [address] Nurse Practitioner Radiation Oncology 05/29/23 documented as of this encounter
--- OUTSIDE RECORDS SUMMARY | 2025-01-14 15:21 | XMS_ITS | Encounter Summary ---
Author Organization [facility] Address [address] [place] [address] Phone Care Team Providers Care Manager Nicu Name Role Phone Parth Munoz MD Primary Care Provider [phone] Brianna Salamanca MD Primary Care Provider Keyshawn Stoll MD Unavailable José Miguel Haines MD Unavailable [phone] Claudine May MD Unavailable Mya Cooley NP Unavailable [phone] Encounter Details Date Type Department Care Team (Latest Contact Info) Description 10/17/2021 Orders Only [facility] Scanning, Provider Social History Tobacco Use Types Packs/Day Years Used Date Smoking Tobacco: Never Assessed Comments Unknown Sex and Gender Information Value Date Recorded Sex Assigned at Not on file 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 Gender Identity Not on file Sexual Orientation [...] filedocumented in this encounter Care Teams Manager Nicu Relationship Specialty Start Date End Date Parth Munoz MD PCP - General 02/09/11 05/22/22 Brianna Salamanca MD [address] [place] [address] PCP - General Family Medicine 05/23/22 Keyshawn Stoll MD [address] [facility] IM PUL[facility]ARY [facility], [address] [place] [address] Referring Physician Pulmonary Disease 08/22/22 José Miguel Haines MD [address] DIV IM PULMONARY AND CCM, [address] [place] [address] Medical Oncologist/Infusion Rn Hematology and Oncology 08/22/22 Claudine May MD [address] [place] [address] Radiation Oncologist Radiation Oncology 10/18/22 Mya Cooley NP [address] [place] [address] Nurse Practitioner Radiation Oncology 05/29/23 documented as of this encounter
--- OUTSIDE RECORDS SUMMARY | 2025-01-14 15:21 | XMS_ITS | Encounter Summary ---
Author Organization [facility] Address [address] [place] [address] Care Team Providers Care Aircraft Manager Name Role Phone Parth Munoz MD Primary Care Provider [phone] Brianna Salamanca MD Primary Care Provider Keyshawn Stoll MD Unavailable [phone] José Miguel Haines MD Unavailable [phone] Claudine May MD Unavailable Mya Cooley NP Unavailable Encounter Details Date Type Department Care Team (Late st Contact Info) Description 05/17/2022 Telephone [facility] Interventional Pulmonology [address] [place] [address] Katja Baumann, RN Social History Tobacco Use [...] on file 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 Gender Identity Not on file Sexual Orientation Not on file documented as of this encounter Functional Status * Question Answer Date of Assessment Author BP Location Left arm 05/18/2022 7:55 AM DAVIDT Tess Payton RN * Gordon Fall Risk Question Answer Date of Assessment Author History of Falling 0 05/18/2022 8:00 AM Tess Bang RN Secondary Diagnosis 0 05/18/2022 8:00 AM Tess Armenta RN Ambulatory Aids 0 05/18/2022 8:00 AM CDT Tess Bailey RN Intravenous Therapy/Heparin/Saline Lock 20 05/18/2022 8:00 AM Luz Bang RN Gait/Transferring 0 05/18/2022 8:00 AM Tess Bang RN Mental Status 0 05/18/2022 8:00 AM CDT Tess Martinez RN Gordon Fall Risk Score (Score >= 45 [...] of Assessment Author 45 05/18/2022 9:34 AM DAVIDT Radha Bateman RN * AUDIT-C Score Answer Date of [...] pre-procedure instructions in the mail, email, or MyChart. Instructed the patient to arrive at [facility] Admitting[facility]Registration [facility] on tomorrow 05/18/22 at 0730. 3. Instructed [...] supply to get themselves to and from [facility]. 5. Patient stated that patient does use a CPAP or BIPAP device. Instructed patient, if they use a CPAP or BIPAP, to bring in their device or bring documentation of their CPAP/BIPAP settings with themto their appointment. 6. The patient will need a reefer truck driver or will need to arrange [...] are familiar on the location of the [facility] Admitting Office for pre- procedure registration and any lab work that may be ordered. Discussed that the patient is not to go to the [facility] for their appointment. Confirmed they are aware of what time to arrive at the [facility] Admitting Office. 12. I reviewed the following [facility] Visitor Policy that was updated 06/2021 [...] wear a face covering upon entrance to [facility]. If you or your visitors do [...] on filedocumented in this encounter Care Teams Aircraft Manager Relationship Specialty Start Date End Date Parth Munoz MD PCP - General 02/09/11 05/22/22 Brianna Salamanca MD [address] [place] [address] PCP - General Family Medicine 05/23/22 Keyshawn Stoll MD [address] DIV IM PULMONARY AND CCM, [address] [place] [address] Referring Physician Pulmonary Disease 08/22/22 José Miguel Haines MD [address] DIV IM PULMONARY AND CCM, [address] [place] [address] Medical Oncologist/Executive Admin Hematology and Oncology 08/22/22 Claudine May MD [address] [place] [address] Radiation Oncologist Radiation Oncology 10/18/22 Mya Cooley NP [address] [place] [address] Nurse Practitioner Radiation Oncology 05/29/23 documented as of this encounter
--- OUTSIDE RECORDS SUMMARY | 2025-01-14 15:21 | XMS_ITS | Encounter Summary ---
Author Organization [facility] Address [address] [place] [address] Phone Care Team Providers Care Button Grader Name Role Phone Parth Munoz MD Primary Care Provider [phone] Brianna Salamanca MD Primary Care Provider Keyshawn Stoll MD Unavailable José Miguel Haines MD Unavailable Claudine May MD Unavailable Mya Cooley NP Unavailable [phone] Encounter Details Date Type Department Care Team (Latest Contact Info) Description 08/16/2021 Orders Only [facility] Scanning, Provider Social History Tobacco Use Types Packs/Day Years Used Date Smoking Tobacco: Never Assessed Comments Unknown Sex and Gender Information Value Date Recorded Sex Assigned at Not on file 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 Gender Identity Not on file Sexual Orientation [...] on filedocumented in this encounter Care Teams Button Grader Relationship Specialty Start Date End Date Parth Munoz MD PCP - General 02/09/11 05/22/22 Brianna Salamanca MD [address] [place] [address] PCP - General Family Medicine 05/23/22 Keyshawn Stoll MD [address] DIV IM PULMONARY AND CCM, [address] [place] [address] Referring Physician Pulmonary Disease 08/22/22 José Miguel Haines MD [address] DIV IM PULMONARY AND CCM, [address] [place] [address] Medical Oncologist/Bed Placement Coordinator Hematology and Oncology 08/22/22 Claudine May MD [address] [place] [address] Radiation Oncologist Radiation Oncology 10/18/22 Mya Cooley NP [address] [place] [address] Nurse Practitioner Radiation Oncology 05/29/23 documented as of this encounter
--- OUTSIDE RECORDS SUMMARY | 2025-01-14 15:21 | XMS_ITS | Encounter Summary ---
Author Organization [facility] Address [address] [place] [address] Phone Care Team Providers Care Dirt Supervisor Name Role Phone Parth Munoz MD Primary Care Provider [phone] Brianna Salamanca MD Primary Care Provider Keyshawn Stoll MD Unavailable [phone] José Miguel Haines MD Unavailable [phone] Claudine May MD Unavailable [phone] Mya Cooley NP Unavailable [phone] Encounter Details Date Type Department Care Team (Latest Contact Info) Description 03/15/2022 Orders Only [facility] Scanning, Provider Social History Tobacco Use Types Packs/Day Years Used Date Smoking Tobacco: Never Assessed Comments Unknown Sex and Gender Information Value Date Recorded Sex Assigned at Not on file 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 Gender Identity Not on file Sexual Orientation [...] on filedocumented in this encounter Care Teams Dirt Supervisor Relationship Specialty Start Date End Date Parth Munoz MD PCP - General 02/09/11 05/22/22 Brianna Salamanca MD [address] [place] [address] PCP - General Family Medicine 05/23/22 Keyshawn Stoll MD [address] DIV IM PULMONARY AND CCM, [address] [place] [address] Referring Physician Pulmonary Disease 08/22/22 José Miguel Haines MD [address] DIV IM PULMONARY AND CCM, [facility] [address] [place] [address] Medical Oncologist/Fruit And Vegetable Classer Hematology and Oncology 08/22/22 Claudine May MD [address] [place] [address] Radiation Oncologist Radiation Oncology 10/18/22 Mya Cooley NP [address] [place] [address] Nurse Practitioner Radiation Oncology 05/29/23 documented as of this encounter
--- OUTSIDE RECORDS SUMMARY | 2025-01-14 15:21 | XMS_ITS | Clinical Summary ---
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 73 m2 [facility] Comment: Interpretive Data Reference Interval Normal >/= [...] was last reviewed 2021. Testing performed by: [facility], [address] [place] [id number] Blood 09/07/2022 3:20 PM CDT 09/07/2022 3:24 PM CDT José Miguel Haines MD LAB BLOOD ORDERABLES Final Result Performing Organization Address City/State/[facility] Co de Phone Number VICTOR HUGONER [facility] Department [place] [address] from Last 3 Months or Most Recently Relevant to Health Maintenance Insurance ANTHEM ACCESS ANTHEM ACCESS Care Teams Legal Analyst Relationship Specialty Start Date End Date Brianna Salamanca MD [address] [facility] [address] [place] [address] PCP - General Family Medicine 05/23/22 Keyshawn Stoll MD [address] DIV IM PULMONARY AND CCM, [address] [place] [address] Referring Physician Pulmonary Disease 08/22/22 José Miguel Haines MD [address] DIV IM PULMONARY AND CCM, [address] [place] [address] Medical Oncologist/Field Identification Specialist Hematology and Oncology 08/22/22 Claudine May MD [address] [place] [address] Radiation Oncologist Radiation Oncology 10/18/22 Mya Cooley NP [address] [place] [address] Nurse Practitioner Radiation Oncology 05/29/23
--- OUTSIDE RECORDS SUMMARY | 2025-01-14 15:21 | XMS_ITS | Encounter Summary ---
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 Gender Identity Not on file Sexual [...] on filedocumented in this encounter Care Teams Client Server Developer Relationship Specialty Start Date End Date Brianna Salamanca MD [address] [place] [address] PCP - General Family Medicine 05/23/22 Keyshawn Stoll MD [address] DIV IM PULMONARY AND CCM, [address] [place] [address] Referring Physician Pulmonary Disease 08/22/22 José Miguel Haines MD [address] DIV IM PULMONARY AND CCM, [address] [place] [address] Medical Oncologist/Sales Order Coordinator Hematology and Oncology 08/22/22 Claudine May MD [address] [place] [address] Radiation Oncologist Radiation Oncology 10/18/22 Mya Cooley NP [address] [facility] [address] [place] [address] Nurse Practitioner Radiation Oncology 05/29/23 documented as of this encounter
--- OUTSIDE RECORDS SUMMARY | 2025-01-14 15:21 | XMS_ITS | Encounter Summary ---
Author Organization [facility] Address [address] [place] [address] Care Team Providers Care Ethical Hacker Name Role Phone Parth Munoz MD Primary Care Provider [phone] Brianna Salamanca MD Primary Care Provider Keyshawn Stoll MD Unavailable [phone] José Miguel Haines MD Unavailable Claudine May MD Unavailable Mya Cooley NP Unavailable [phone] Encounter Details Date Type Department Care Team (Late st Contact Info) Description 05/17/2022 Telephone [facility] Interventional Pulmonology [address] [place] [address] Katja Baumann, RN Social History Tobacco Use [...] on file 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 Gender Identity Not on file Sexual [...] on filedocumented in this encounter Care Teams Ethical Hacker Relationship Specialty Start Date End Date Parth Munoz MD PCP - General 02/09/11 05/22/22 Brianna Salamanca MD [address] [address] PCP - General Family Medicine 05/23/22 Keyshawn Stoll MD [address] DIV IM PULMONARY AND CCM, [address] [place] [address] Referring Physician Pulmonary Disease 08/22/22 José Miguel Haines MD [address] DIV IM PULMONARY AND CCM, [address] [place] [address] Medical Oncologist/Solutions Market Consultant Hematology and Oncology 08/22/22 Claudine May MD [address] [place] [address] Radiation Oncologist Radiation Oncology 10/18/22 Mya Cooley NP [address] [place] [address] Nurse Practitioner Radiation Oncology 05/29/23 documented as of this encounter
--- OUTSIDE RECORDS SUMMARY | 2025-01-14 15:21 | XMS_ITS | Clinical Summary ---
Author Organization [facility] Address [address] [place] [address] Care Team Providers Care Dry Wall Plasterer Name Role Phone Rupinder Gómez APRN-LASER BEAM CUTTER Primary Care Provider [phone] Source Comments [facility],non-owned Affiliates and Associated Physician Practices is amultiple site organization consisting of ambulatory clinics and hospital sitesin [place], [place], [place] and [place]. This disclosure is being madepursuant to the Care Everywhere program and may not contain all information available regarding this patient. Last updated 17.[facility] Social History Tobacco Use Types Packs/Day Years [...] patient's age to complete this topic Insurance [place] [address] Care Teams Dry Wall Plasterer Relationship Specialty Start Date End Date Rupinder Gómez APRN-COLE [address] [place] [address] PCP - General Nurse Practitioner Family 12/05/23
[2025-01-14 16:10] LABS: Creatine Kinase 86 U/L (30-135)
[2025-01-14 17:46] LABS: Add Urine Microscopic? NO; Appearance Urine Clear (Clear); Glucose Urine UA 3+ mg/dL (Negative); Leukocyte Esterase Ur Negative LEU/UL (Negative); Nitrate Urine Negative (Negative); Specific Grav Ur 1.033 (1.001-1.035)
[2025-01-14 17:52] LABS: Total Protein Urine Random 14 mg/dL; Ur Ttl Prot Creatinine Ratio 0.11 mg/mg (0-0.20)
[2025-01-16 10:09] LABS: ANA by IFA Rfx Titer/Pattern Negative (.)
[2025-01-16 15:09] LABS: Immunoglobulin A, Qn 231 mg/dL (87-352); Immunoglobulin G, Qn 1020 mg/dL (586-1602); Immunoglobulin M, Qn 148 mg/dL (26-217)
== END 2025-01-14 14:24 | disposition home or self-care (01) ==
LOC: ANHLAB 14:24
PROVIDERS: PCP Physician Assistant; Visit Provider Internal Medicine Nephrology
DX: N18.32 Chronic kidney disease, stage 3b (principal)
CPT/HCPCS: 36415; 80069; 81003; 82550; 82570; 82784; 83970; 84156; 85027; 85652; 86038; 86160; 86162; 86334; 86335

== ENCOUNTER 2025-01-20 13:12 | Outpatient (CLI) | payer BC, SELFPAY ==
[2025-01-20 16:07] LABS: Total Volume 24 Hour Urine 2300 ml
== END 2025-01-20 13:13 | disposition home or self-care (01) ==
LOC: ANHLAB 13:13
PROVIDERS: PCP Physician Assistant; Visit Provider Internal Medicine Nephrology
DX: N18.32 Chronic kidney disease, stage 3b (principal)
CPT/HCPCS: 81050; 84540

== ENCOUNTER 2025-02-09 12:49 | Outpatient (CLI) | payer BC, SELFPAY ==
--- NOTE | ~2025-02-09 | US_ITS ---
EXAMINATION: US renal BI, 02/09/2025 12:51 PLUMBING ENGINEERING DRAFTSPERSON HISTORY: N18.32 - Chronic kidney disease, stage 3b Comparison: None Technique: Fay-scale and color Doppler images were obtained. Findings: KIDNEYS: The renal cortices are intact with no solid masses, cysts or calculi, no hydronephrosis. Right Kidney: Right kidney 9.7 x 3.8 x 4.4 cm. Left Kidney: Left kidney 13.7 x 4.7 x 5.4 cm. Bladder: The bladder is unremarkable. . Impression: No acute abnormality. Reviewed, dictated and finalized at location P. BING ENGINEERING DRAFTSPERSON Impression: No acute abnormality.
== END 2025-02-09 12:50 | disposition home or self-care (01) ==
LOC: GOSHIMG 12:50
PROVIDERS: PCP Physician Assistant; Visit Provider Internal Medicine Nephrology
DX: N18.32 Chronic kidney disease, stage 3b (principal)
CPT/HCPCS: 76770

== ENCOUNTER 2025-02-16 14:34 | Outpatient (CLI) | payer BC, SELFPAY ==
[2025-02-16 15:03] LABS: Hematocrit 34.2 % (37.0-47.0); Hemoglobin 11.2 g/dL (12.0-15.0); Immature Granulocyte Percent A 0.5 % (0-0.5); Lymphocytes Absolute Auto 1.96 K/mm3 (0.9-3.2); Mean Corpuscular HGB Conc 32.7 g/dl (32-36); Mean Corpuscular Hemoglobin 31.9 pg (26-34); Mean Corpuscular Volume 97.4 fl (80-100); Nucleated Red Blood Cells Absolute Auto 0.000 K/mm3 (0.0-0.012); Nucleated Red Blood Cells Perc 0.0 % (0.0-0.2); Platelet Count Result 217 k/mm3 (150-375); Red Blood Count 3.51 M/mm3 (4.2-5.4); White Blood Count 5.8 K/mm3 (4.5-10.0)
[2025-02-16 16:31] LABS: Alanine Aminotransferase 22 U/L (6-35); Albumin Level 4.4 g/dL (3.5-5.1); Alkaline Phosphatase 187 U/L (38-126); Anion Gap 6 mmol/L (4-12); Aspartate Amino Transferase 38 U/L (14-36); Bilirubin,Total 0.7 mg/dL (0.2-1.3); Blood Urea Nitrogen 12 mg/dL (7-17); Calcium 10.0 mg/dL (8.4-10.2); Carbon Dioxide 26 mmol/L (22-30); Chloride 109 mmol/L (98-107); Estimated Glomerular Filt Rate 44; Glucose 113 mg/dL (65-110); Potassium 4.2 mmol/L (3.4-5.0); Sodium 141 mmol/L (137-145); Total Protein 8.0 g/dL (6.3-8.2)
[2025-02-16 16:46] LABS: Immunoglobulin A 213 mg/dL (70-400); Immunoglobulin G 936 mg/dL (700-1600); Immunoglobulin M 142 mg/dL (40-230)
[2025-02-17 14:08] LABS: Albumin 3.7 g/dL (2.9-4.4); Alpha-1-Globulin 0.3 g/dL (0.0-0.4); Alpha-2-Globulin 0.9 g/dL (0.4-1.0); Free Lambda Lt Chains, Serum 42.2 mg/L (5.7-26.3); Gamma Globulin 1.1 g/dL (0.4-1.8); Kappa/Lambda Ratio, Serum 1.27 (0.26-1.65)
== END 2025-02-16 14:35 | disposition home or self-care (01) ==
LOC: ANHLAB 14:35
PROVIDERS: PCP Physician Assistant; Visit Provider Internal Medicine Hematology & Oncology
DX: D72.9 Disorder of white blood cells, unspecified (principal)
CPT/HCPCS: 36415; 80053; 82784; 83521; 84155; 84165; 85025

== ENCOUNTER 2025-02-16 15:22 | Outpatient (CLI) | payer BC, SELFPAY ==
--- NOTE | ~2025-02-16 | XR_ITS ---
EXAM/PROCEDURE: XR bone survey comp/metastic HISTORY: Plasma cell disorder COMPARISON: Lower chest portion of the CT exam from July 02, 2023 TECHNIQUE: Metastatic bone survey FINDINGS: The lungs, chronic consolidative/atelectatic changes in the lung bases not clearly changed from the 2023 exam. No aggressive osteolytic or osteoblastic lesions seen in the axial or appendicular skeleton. Diffuse degenerative changes throughout the bones. Diffuse atherosclerotic calcification in the arteries. Heterotopic ossification appearing changes about the right hip. IMPRESSION: 1. No gross evidence of bony metastatic disease. 2. Other benign chronic appearing findings as above. Reviewed, dictated and finalized at location A. STIC SPECIALIST
--- OUTSIDE RECORDS SUMMARY | 2025-02-16 13:30 | XMS_ITS | Encounter Summary ---
Author Organization [facility] ([facility] JOSIAS Bhat [facility] Address [address] [place] [address] Care Team Providers Care Tool Repairer Name Role Phone Unavailable Primary Care Provider Unavailabl e Reason for Referral * Radiology Services (Routine) - Authorized Specialty Diagnoses / Procedures Referred By Contac t Referred To Contact Diagnoses Plasma cell disorder Procedures XR BONE SURVEY COMPLETE Raul Claderon MD [address] [place] [address] Phone: tel: fax: Referral ID Status Reason Start Date Expiration Date V isits Requested Visits Authorized [id number] Authorized 02/16/2025 03/19/2026 1 1 ING SUPPORT WORKER Reason for Visit * Reason Comments Establish Care Encounter Details Date Type Department Care Team (Late st Contact Info) Description 02/16/2025 1:30 PM NURSING SUPPORT WORKER Office Visit [facility] Oncology and Hematology - [place] [address] [place] [address] [address] [place] [address] Raul Calderon MD [address] [place] [address] Plasma cell disorder (Primary Dx) Social History Tobacco Use Types Packs/Day Years Used Date Smoking Tobacco: Former Cigarettes 1 48 0 03/05/1974 - 02/16/2022 Smokeless Tobacco: Never Alcohol Use Standard Drinks/Week Comments Yes 0 (1 standard drink = 0.6 oz pur e alcohol) Occasionally Comments Unknown Sex and Gender Information Value Date Recorded Sex Assigned at Not on file Legal Sex Female 11:02 AM NURSING SUPPORT WORKER Gender Identity Not on file Sexual Orientation Not on file documented as of this encounter Last Filed Vital Signs Vital Sign Reading Time Taken Comments Blood Pressure 150/75 02/16/2025 1:49 PM NURSING SUPPORT WORKER Pulse 89 02/16/2025 1:46 PM NURSING SUPPORT WORKER Temperature 36.4 C (97.5 F) 02/16/2025 1:46 PM NURSING SUPPORT WORKER Respiratory Rate 16 02/16/2025 1:46 PM NURSING SUPPORT WORKER Oxygen Saturation 95% 02/16/2025 1:46 PM NURSING SUPPORT WORKER Inhaled Oxygen Concentration - - Weight 95.6 kg (210 lb 12.8 oz) 02/16/2025 1:46 PM NURSING SUPPORT WORKER Height 167.6 cm (5' 6) 02/16/2025 1:46 PM NURSING SUPPORT WORKER Body Mass Index 34.02 02/16/2025 1:46 PM NURSING SUPPORT WORKER documented in this encounter Progress Notes * Raul Calderon MD - 02/16/2025 1:58 PM CST Hematology-oncology consult Note Requesting Physician Aly Houser MD Primary Care Physician No primary care provider on file. Problem list There is no problem list on file for this patient. Previous TREATMENT ? Measurable Disease ? Reason for Visit Francisca Raines is a 65 y.o. female who was referred for consultation for plasma cell disorder. History of present illness This is a pleasant 65-year-old female with history of type 2 diabetes, hypertension, hyperlipidemia and bilateral stage Ia lung cancer status post SBRT treatment to the both right on 2022. Patient was evaluated by Dr. Houser for renal insufficiency and serum protein electrophoresis was performed that showed IgA monoclonal protein with lambda light chain specificity present. Patient does have some peripheral neuropathy involving bilateral feet likely secondary to diabetes. Denies any bone pain. Weight and appetite stable. Denies any other new complaints. Past Medical History Past Medical History: Diagnosis Date Diabetes mellitus (CMS/HCC) Emphysema of lung (CMS/HCC) Hyperlipidemia Hypertension Malignant neoplasm of trachea, bronchus, and lung (CMS/HCC) Surgical History Past Surgical History: Procedure Laterality Date HX APPENDECTOMY HX CHOLECYSTECTOMY HX COLONOSCOPY 08/16/2021 Medications Current Outpatient Medications Medication Sig Dispense Refill atorvastatin (LIPITOR) 80 mg tablet Take 1 Tablet by mouth daily. Jardiance 10 mg tablet Take 1 Tablet by mouth daily. lisinopriL (PRINIVIL) 40 mg tablet Take 1 Tablet by mouth daily. omeprazole (PriLOSEC) 40 mg Capsule, Delayed Release(E.C.) Take 1 Capsule by mouth daily. Anoro Ellipta 62.5-25 mcg/actuation Disk with Device Take 1 Puff by inhalation. albuterol (PROVENTIL,VENTOLIN) 2.5 mg /3 mL (0.083 %) Solution for Nebulization 2.5 MG (3 ML) INHALED EVERY 4 - 6 HOURS NEEDED FOR SHORTNESS OF BREATH OR WHEEZING gabapentin (NEURONTIN) 300 mg capsule Take 300 mg by mouth 3 times daily. glipiZIDE (GLUCOTROL) 10 mg tablet Take 10 mg by mouth daily. solifenacin (VESICARE) 10 mg Tablet Take 10 mg by mouth daily. Restasis 0.05 % emulsion Administer 1 Drop in both eyes 2 times daily. No current facility-administered medications for this visit. Allergies Allergies Allergen Reactions Penicillins Rash In 1987, developed a rash after taking Penicillin a few days. Immunizations: Immunization History Administered Date(s) Administered (SPIKEVAX) (12 YRS UP PRIMARY SERIES) COVID-19 VACCINE - MRNA-1273(PF) 100 MCG/0.5 ML IM SUSP 05/22/2020, 06/19/2020, 09/07/2021 Family History Family History Problem Relation Name Age of Onset Prostate Cancer Father Heart Disease Father Diabetes Mother Heart Disease Mother No Known Problems Sister Diabetes Sister No Known Problems Child Social History Social History Tobacco Use Smoking status: Former Current packs/day: 0.00 Average packs/day: 1 pack/day for 48.0 years (48.0 ttl pk-yrs) Types: Cigarettes Start date: 03/05/1974 Quit date: 02/16/2022 Years since quittin.0 Smokeless tobacco: Never Substance Use Topics Alcohol use: Yes Comment: Occasionally Review of Systems Constitutional: Patient did not mention fever; no night sweats; no anorexia; no weight loss; no fatique NEENT: Patient did not mention headache; no change in vision; no change in hearing; no sore throat;no dysphagia Respiratory: Patient did not mention shortness of breath; no pleuritic chest pain; no cough; no hemoptysis Cardiac: Patient did not mention cardiac-like chest pain; no palpitations; no orthopnea; no PND; noDOE Breasts: Patient did not mention tenderness; no masses GI: Patient did not mention abdominal pain; no nausea; no vomiting; no diarrhea; no hematochezia; no melena : Patient did not mention dysuria; no frequency; no hesitancy; no hematuria NIGHT GUARD: Musculosketetal: Patient did not mention bone pain; no arthralgia; no joint swelling; no myalgia; Skin: Patient did not mention pruritis; no rash; no petechiae; no ecchymoses Endocrine: Patient did not mention polydipsia; no polyuria; no unusual weight gain Neuro: Patient did not mention headache; no change in vision; complain of bilateral will foot neuropathy; no muscle weakness; no confusion; no seizures Psych: Patient did not mention anxiety; no depression; Physical Exam Vitals: As per nursing note Constitutional: Well developed, well nourished, no acute distress, non-toxic appearance Teeth and gum. No signs of infection or swelling. Eyes: PERRL, conjunctiva normal HEENT: Atraumatic, external ears normal, nose normal, oropharynx moist, no pharyngeal exudates. no sinus tenderness Neck- normal range of motion, no tenderness, supple Respiratory: No respiratory distress, normal breath sounds, no rales, no wheezing Cardiovascular: Normal rate, normal rhythm, no murmurs, no gallops, no rubs GI: Soft, nondistended, normal bowel sounds, nontender, no splenomegaly, no hepatomegaly, no mass, no rebound, no guarding : No costovertebral angle tenderness Musculoskeletal: No edema, no tenderness, no deformities. Back- no tenderness Integument: Well hydrated, no rash, Digits and nails inspection normal Lymphatic: No lymphadenopathy noted Neurologic: Alert & oriented x 3, CN 2-12 normal, normal motor function, normal sensory function, no focal deficits noted Psychiatric: Speech and behavior appropriate ? labs No results found for this or any previous visit (from the past 24 hours). Labs from January 2025 showed IgM monoclonal protein with lambda light chain specificity present creatinine 1.27 calcium 9.7 hemoglobin 10.7 WBC 5.4 platelet 203,000 Pathology ? Imaging & Other Studies Performance Status? Assessment / Plan: ? 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 Patient is a pleasant 65-year-old slightly obese female with history of fatty liver, bilateral stage Ia lung cancer status post SBRT treatment done on October 09, 2022, type 2 diabetes, hypertension and chronic kidney disease referred to me for abnormal serum protein electrophoresis. She denies any bone pain but does have some peripheral neuropathy involving bilateral feet likely secondary to diabetes. He denies any recent weight changes. Calcium was normal but creatinine was slightly elevated. She has mild anemia as well. I have discussed the diagnosis of MGUS and differential diagnoses involving multiple myeloma. At this time I will order the complete workup that will include CBC with differential, CMP, serum protein electrophoresis with immunofixation, quantitative immunoglobulin, serum free light chain studies and a skeletal survey. Based on the labs and a skeletal survey we will decide about bone marrow aspiration and biopsy. I have answered all the questions to patient's satisfaction. Follow-up with us in 2 weeks to discuss further. CKD stage III. Patient will follow-up with Dr. Houser. Bilateral lung cancer stage Ia disease status post SBRT treatment in October 2022. She will follow-up with oncologist Dr. Hainse. Type 2 diabetes. Patient is on Jardiance and glipizide. Hypertension. She is on lisinopril. Peripheral neuropathy. Patient is on gabapentin. Hyperlipidemia. She is on Lipitor. Thank you very much for allowing me to participate in Francisca Raines's evaluation and management. Please feel free to contact if I can be of any further assistance in your patient???s care requiring hematology or oncology evaluation. Sincerely, ? ? Raul Calderon M.D. cell TOBACCO COUNSELING She is not a tobacco/nicotine user. Raul Calderon MD ,02/16/2025 2:15 PM ? Total time spent 60 minutes, two third of the total time spent counseling patient [id number]. CC:?Aly Houser MD ING SUPPORT WORKER documented in this encounter Plan of Treatment Upcoming Encounters Date Type Department Care Team (Late st Contact Info) Description 03/02/2025 4:00 PM NURSING SUPPORT WORKER Telephone Check Up [facility] Oncology and Hematology [address] [place] [address] Rodo Roger MD [address] [place] [phone] Scheduled Orders Name Type Priority Associated Diagnoses Orde r Schedule CBC WITH DIFFERENTIAL Lab Stat Plasma cell disorder Expected: 02/16/2025, Expires: 02/16/2026 COMPREHENSIVE METABOLIC PANEL Lab Stat Plasma cell disorder Expected: 02/16/2025, Expires: 02/16/2026 IMMUNOGLOBULINS IGG IGA IGM Lab Routine Plasma cell disorder Expected: 02/16/2025, Expires: 02/16/2026 KAPPA/LAMBDA, FREE LIGHT CHAINS Lab Routine Plasma cell disorder Expected: 02/16/2025, Expires: 02/16/2026 PROTEIN ELECTROPHORESIS W/REFLEX,SERUM Lab Routine Plasma cell disorder Expected: 02/16/2025, Expires: 02/16/2026 XR BONE SURVEY COMPLETE Imaging Routine Plasma cell disorder 1 Occurrences starting 02/16/2025 until 02/16/2026 documented as of this encounter Visit Diagnoses Diagnosis Plasma cell disorder- Primary Other specified disease of white blood cells documented in this encounter
--- OUTSIDE RECORDS SUMMARY | 2025-02-16 17:48 | XMS_ITS | Encounter Summary ---
Author Organization [facility] Address [address] [place] [address] Phone Care Team Providers Care Wharf Hand Name Role Phone Brianna Salamanca MD Primary Care Provider Keyshawn Stoll MD Unavailable José Miguel Haines MD Unavailable [phone] Claudine May MD Unavailable Mya Cooley NP Unavailable [phone] Encounter Details Date Type Department Care Team [...] on file Legal Sex Female 2:01 AM MULTI SHARE PROGRAM COORDINATOR Gender Identity Not on file Sexual [...] on filedocumented in this encounter Care Teams Wharf Hand Relationship Specialty Start Date End Date Brianna Salamanca MD [address] [place] [address] PCP - General Family Medicine 05/23/22 Keyshawn Stoll MD [address] DIV IM PULMONARY AND CCM, [address] [place] [address] Referring Physician Pulmonary Disease 08/22/22 José Miguel Haines MD [address] DIV IM PULMONARY AND CCM, [address] [place] [address] Medical Oncologist/Microarray Analyst Hematology and Oncology 08/22/22 Claudine May MD [address] [place] [address] Radiation Oncologist Radiation Oncology 10/18/22 Mya Cooley NP [address] [facility] [address] [place] [address] Nurse Practitioner Radiation Oncology 05/29/23 documented as of this encounter
--- OUTSIDE RECORDS SUMMARY | 2025-02-16 17:48 | XMS_ITS | Encounter Summary ---
Author Organization [facility] Address [address] [place] [address] Phone Care Team Providers Care Seasonal Customer Service Associate Name Role Phone Brianna Salamanca MD Primary Care Provider Keyshawn Stoll MD Unavailable [phone] José Miguel Haines MD Unavailable [phone] Claudine May MD Unavailable [phone] Mya Cooley NP Unavailable [phone] Encounter Details Date Type Department Care Team [...] on file Legal Sex Female 2:01 AM HAT IRONER Gender Identity Not on file Sexual Orientation [...] on filedocumented in this encounter Care Teams Seasonal Customer Service Associate Relationship Specialty Start Date End Date Brianna Salamanca MD [address] [place] [address] PCP - General Family Medicine 05/23/22 Keyshawn Stoll MD [address] DIV IM PULMONARY AND CCM, [address] [place] [address] Referring Physician Pulmonary Disease 08/22/22 José Miguel Haines MD [address] DIV IM PULMONARY AND CCM, [address] [place] [address] Medical Oncologist/Information Analyst Hematology and Oncology 08/22/22 Claudine May MD [address] [place] [address] Radiation Oncologist Radiation Oncology 10/18/22 Mya Cooley NP [address] [place] [address] Nurse Practitioner Radiation Oncology 05/29/23 documented as of this encounter
--- OUTSIDE RECORDS SUMMARY | 2025-02-16 17:48 | XMS_ITS | Clinical Summary ---
Author Organization [facility] Radha emelia Dylon Address [address] [place] [address] Care Team Providers Care Call Worker Person Name Role Phone Unavailable Primary Care Provider Unavailabl e Allergies Active Allergy Reactions Criticality Noted Date Comments Penicillins Rash Medium 11/22/2015 In 1987, developed a rash after taking Penicillin a few days. Medications atorvastatin (LIPITOR) 80 mg tablet Take 1 Tablet by mouth daily. 5 Active Jardiance 10 mg tablet Take 1 Tablet by mouth daily. 5 Active gabapentin (NEURONTIN) 300 mg capsule Take 300 mg by mouth 3 times daily. Active glipiZIDE (GLUCOTROL) 10 mg tablet Take 10 mg by mouth daily. Active lisinopriL (PRINIVIL) 40 mg tablet Take 1 Tablet by mouth daily. 5 Active omeprazole (PriLOSEC) 40 mg Capsule, Delayed Release(E.C.) Take 1 Capsule by mouth daily. 5 Active solifenacin (VESICARE) 10 mg Tablet Take 10 mg by mouth daily. Active Anoro Ellipta 62.5-25 mcg/actuation Disk with Device Take 1 Puff by inhalation. 3 Active Restasis 0.05 % emulsion Administer 1 Drop in both eyes 2 times daily. Active albuterol (PROVENTIL,VENTOL IN) 2.5 mg /3 mL (0.083 %) Solution for Nebulization 2.5 MG (3 ML) INHALED EVERY 4 - 6 HOURS NEEDED FOR SHORTNESS OF BREATH OR WHEEZING 4 Active Active Problems No known active problems Encounters Date Type Department Care Team Description 02/16/2025 1:30 PM FLORAL SPECIALIST Office Visit [facility] Oncology and Hematology - [place] [place] [address] Raul Calderon MD Plasma cell disorder (Primary Dx) from Last 3 Months Family History Medical History Relation Name Comments No Known Problems Child Heart Disease Father Prostate Cancer Father Diabetes Mother Heart Disease Mother No Known Problems Sister 1 Diabetes Sister 2 Relation Name Status Comments Child Alive Father Mother Sister 1 Alive Sister 2 Alive Social History Tobacco Use Types Packs/Day Years Used Date Smoking Tobacco: Former Cigarettes 1 48 0 03/05/1974 - 02/16/2022 Smokeless Tobacco: Never Alcohol Use Standard Drinks/Week Comments Yes 0 (1 standard drink = 0.6 oz pur e alcohol) Occasionally Comments Unknown Sex and Gender Information Value Date Recorded Sex Assigned at Not on file Legal Sex Female 11:02 AM FLORAL SPECIALIST Gender Identity Not on file Sexual Orientation Not on file Last Filed Vital Signs Vital Sign Reading Time Taken Comments Blood Pressure 150/75 02/16/2025 1:49 PM FLORAL SPECIALIST Pulse 89 02/16/2025 1:46 PM FLORAL SPECIALIST Temperature 36.4 C (97.5 F) 02/16/2025 1:46 PM FLORAL SPECIALIST Respiratory Rate 16 02/16/2025 1:46 PM FLORAL SPECIALIST Oxygen Saturation 95% 02/16/2025 1:46 PM FLORAL SPECIALIST Inhaled Oxygen Concentration - - Weight 95.6 kg (210 lb 12.8 oz) 02/16/2025 1:46 PM FLORAL SPECIALIST Height 167.6 cm (5' 6) 02/16/2025 1:46 PM FLORAL SPECIALIST Body Mass Index 34.02 02/16/2025 1:46 PM FLORAL SPECIALIST Plan of Treatment Upcoming Encounters Date Type Department Care Team (Late st Contact Info) Description 03/02/2025 4:00 PM FLORAL SPECIALIST Telephone Check Up [facility] Oncology and Hematology - [place] [place] [phone] Rodo Roger MD [address] [place] [address] Health Maintenance Due Date Last Done Comments FIT-DNA Q 3 years 02/06/2005 FIT/FOBT Q 1 year 02/06/2005 Flex Sig/CT Colonography Q 5 years 02/06/2005 BREAST CANCER SCREENING 03/11/2021 03/11/19 21, 03/11/2020, 03/13/2018 PNEUMOCOCCAL VACCINE 50+ YEA RS (3 of 3 - PCV20 or PCV21) 03/25/2023 03/25/2018, 12/06/2015 Preventative Visit- Commercial 03/05/2024 0 07/06/2021, 06/07/2020, 03/18/2020, Additional history exists INFLUENZA VACCINE (#1) 2024 2, 11/24/2021, 01/12/2021, Additional history exists COVID-19 Vaccine (5 - 2024-2 6 season) 2024 09/07/2021, 01/26/2021, 06/19/2020, Additional history exists OSTEOPOROSIS SCREENING 02/06/2025 DTAP/TDAP/TD VACCINES (2 - T d or Tdap) 11/21/2025 11/22/2015 COLORECTAL SCREENING 08/17/2031 08/16/2021, 08/17/19 22 Colorectal Cancer Screening 08/17/2031 RSV VACCINE (60+ or ) (1 - 1-dose 75+ series) 02/06/2035 ZOSTER VACCINE Completed 02/13/2020, 12/15/2019 Insurance [employer] BLUE ACCESS/TRUE BLUE PPO
--- OUTSIDE RECORDS SUMMARY | 2025-02-16 17:48 | XMS_ITS | Encounter Summary ---
Author Organization [facility] Healthcare Address [address] [place] [address] Care Team Providers Care Composition Roofer Name Role Phone Parth Munoz MD Primary Care Provider [phone] Brianna Salamanca MD Primary Care Provider Keyshawn Stoll MD Unavailable José Miguel Haines MD Unavailable Claudine May MD Unavailable [phone] Mya Cooley NP Unavailable Encounter Details Date Type Department Care Team (Late st Contact Info) Description 05/17/2022 Telephone [facility] Interventional Pulmonology [address] [place] [address] Katja Baumann, RN Social History Tobacco Use [...] on file Legal Sex Female 2:01 AM RADAR ENGINEER Gender Identity Not on file Sexual [...] MyChart. Instructed the patient to arrive at [facility] Admitting/Registration Office on [facility] on tomorrow 05/18/22 at 0730. 3. [...] supply to get themselves to and from [facility]. 5. Patient stated that patient does use a CPAP or BIPAP device. Instructed patient, if they use a CPAP or BIPAP, to bring in their device or bring documentation of their CPAP/BIPAP settings with themto their appointment. 6. The patient will need a special client bus driver or will need to arrange their [...] are familiar on the location of the [facility] Admitting Office for pre- procedure registration and any lab work that may be ordered. Discussed that the patient is not to go to the [facility] for their appointment. Confirmed they are aware of what time to arrive at the [facility] Admitting Office. 12. I reviewed the following [facility] Visitor Policy that was updated 06/2021 with [...] wear a face covering upon entrance to [facility]. If you or your visitors do not [...] on filedocumented in this encounter Care Teams Composition Roofer Relationship Specialty Start Date End Date Parth Munoz MD PCP - General 02/09/11 05/22/22 Brianna Salamanca MD [address] [place] [address] PCP - General Family Medicine 05/23/22 Keyshawn Stoll MD [address] DIV IM PULMONARY AND CCM, [address] [place] [address] Referring Physician Pulmonary Disease 08/22/22 José Miguel Haines MD [address] DIV IM PULMONARY AND CCM, [address] [place] [address] Medical Oncologist/Commodity Analyst Hematology and Oncology 08/22/22 Claudine May MD [address] [place] [address] Radiation Oncologist Radiation Oncology 10/18/22 Mya Cooley NP [address] [place] [address] Nurse Practitioner Radiation Oncology 05/29/23 documented as of this encounter
--- OUTSIDE RECORDS SUMMARY | 2025-02-16 17:48 | XMS_ITS | Clinical Summary ---
Author Organization [facility] Address [address] [place] [address] Care Team Providers Care Card Runner Name Role Phone Unavailable Primary Care Provider Unavailabl e Encounters Date Type Department Care Team Description 01/27/2025 1:00 PM EST [facility] Clinical Outreach/Intake Care Management [place], [place] Deena Connelly 01/27/2025 [facility] Clinical Outreach/Intake Care Management [place] Deena Connelly 12/23/2024 10:00 AM CDT [facility] Clinical Outreach/Intake Care Management Adelaide Schwab 12/22/2024 [facility] Clinical Outreach/Intake Care Management Adelaide Schwab from Last 3 Months Social History Tobacco Use Types Packs/Day Years Used Date Smoking Tobacco: Never Assessed Comments Unknown Sex and Gender Information Value Date Recorded Sex Assigned at Not on file Legal Sex Female 4:54 PM EST Gender Identity Not on file Sexual Orientation Not on file Last Filed Vital Signs Vital Sign Reading Time Taken Comments Blood Pressure 126/87 01/27/2025 1:07 PM EST Pulse - - Temperature - - Respiratory Rate - - Oxygen Saturation - - Inhaled Oxygen Concentration - - Weight 94.3 kg (208 lb) 01/27/2025 1:07 PM EST Height 167.6 cm (5' 6) 01/27/2025 1:07 PM EST Body Mass Index 33.57 01/27/2025 1:07 PM EST Plan of Treatment Health Maintenance Due Date Last Done Comments Colorectal Cancer: COLONOSCO PY Screening every 10 yrs (or Modifier) 1960 Depression: Screening Annual ly using PHQ-2/9 in Adults 18 yrs or above (or HM Modifier)([facility]) 02/06/1978 Hepatitis C Virus Infection in Adolescents and Adults: Screening (or Modifier) ([facility]) 02/06/1978 [facility] Screening Reminder: Cely ually for all adults ([facility]) 02/06/1978 Tobacco Smoking Cessation: i n Adults excluding Women: Behavioral and Pharmacotherapy Interventions ([facility]) 02/06/1978 Cervical Cancer Screenin 1-65 yrs of age (or Modifier) 02/06/1981 Cervical Cancer Screening: P ap every 3 yrs pts age 21-65 02/06/1981 Cervical Cancer: Pap Screeni ng with Modifier timing ([facility]) 02/06/1981 Cervical Cancer: hrHPV alone or with cotesting Pap for Pts 30-65yrs screening every 5yrs ([facility]) 02/06/1981 Colorectal Cancer: FLEXIBLE SIGMOIDOSCOPY Screening every 5 yrs 02/06/2005 Colorectal Cancer: Stool Col oguard Screening every 3 yrs 02/06/2005 Colorectal Cancer:CT Colonog catherine Screening every 5 yrs 02/06/2005 Colorectal Cancer Screening 45 -75 Yrs (or HM Modifier) 04/02/2018 Colorectal Cancer: Fecal Immunochemical Test (FIT) Annually [facility] 04/02/2018 04/02/2017 Colorectal Cancer: High-sensitivity gFOBT Screening Annually [facility] 04/02/2018 04/02/2017 Breast Cancer: Screening Cely ually age 50-74 yrs (or HM Modifier)([facility]) 03/11/2021 03/11/2020 Pneumococcal Vaccination Screening: Patients 50+ yrs of age ([facility]) (3 of 3 - PCV20 or PCV21) 03/25/2023 03/25/2018, 12/06/2015 COVID-19 Vaccine Screening: Initial Series and Booster Status ([facility]) (2024- season) 2024 09/07/2021, 01/26/2021, 06/19/2020, Additional history exists Flu Vaccination: Ages 65+: Y early High Dose Recommended (or Modifier)([facility]) 02/06/2025 11/24/2021, 12/06/2015, 01/26/2014, Additional history exists Osteoporosis Screening to Pr event Fractures: Women aged 65 years+ ([facility]) 02/06/2025 DTaP/Tdap/Td Vaccines ([facility]) (2 - Td or Tdap) 11/21/2025 11/22/2015 RSV Vaccines (1 - 1-dose 75+ series) 02/06/2035 Pneumococcal Vaccination Screening: Pts 0-19 & 19-49 yrs of age ([facility]) Discontinued 03/25/2018, 12/06/2015 Zoster/Shingles Vaccine Seri es Screening: Adults aged 18+ yrs (or HM Modifiers)([facility]) Completed 02/13/2020, 12/15/2019 Medical Devices Not on file
--- OUTSIDE RECORDS SUMMARY | 2025-02-16 17:49 | XMS_ITS | Clinical Summary ---
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 Gender Identity Not on file Sexual Orientation [...] Hemoglobin A1C 1960 Hepatitis C Screening 1960 Osteoporosis Screening-Bone Density Scan 1960 Dilated Eye Exam 1960 Foot Exam 1960 Hepatitis B Screening 02/06/1978 Breast Cancer Screening-Mammogram 03/11/2021 03/11/2020, 03/11/2020, 03/13/2018 Lipid Panel 07/06/2022 07/06/2021 Pneumococcal vaccine 65+ (3 of 3 - PCV20 or PCV21) 03/25/2023 03/25/2018, 12/06/2015 Fall Risk Assessment 09/07/2023 09/06/2022, 08/03/19 23 eGFR 09/08/2023 09/07/2022, 08/24/2022 Covid-19 Vaccine (6 - 2024-2 6 season) 2024 12/31/2021, 09/07/2021, 01/26/2021, Additional history exists Influenza Vaccine (#1) 2024 2, 01/12/2021, 10/24/2019, Additional history exists Well Visit 65+ 02/06/2025 DTaP/Tdap/Td Vaccine (2 - Td or Tdap) [...] 90 - 130 mL/min/1. 73 m2 [facility] Comment: Interpretive Data Reference Interval [...] was last reviewed 2021. Testing performed by: [facility], [address] [place] [id number] Blood 09/07/2022 3:20 PM CDT 09/07/2022 3:24 PM CDT José Miguel Haines MD LAB BLOOD ORDERABLES Final Result Performing Organization Address City/State/[facility] Co de Phone Number [facility] Department [place] [address] from Last 3 Months or Most Recently Relevant to Health Maintenance Insurance ANTHEM ACCESS ANTHEM ACCESS Care Teams Damascener Relationship Specialty Start Date End Date Brianna Salamanca MD [address] [facility] [address] [place] [address] PCP - General Family Medicine 05/23/22 Keyshawn Stoll MD [address] DIV IM PULMONARY AND CCM, [facility] [address] [place] [address] Referring Physician Pulmonary Disease 08/22/22 José Miguel Haines MD [address] DIV IM PULMONARY AND CCM, [facility] [address] [place] [address] Medical Oncologist/Mill Helper Hematology and Oncology 08/22/22 Claudine May MD [address] [place] [address] Radiation Oncologist Radiation Oncology 10/18/22 Mya Cooley NP [address] [place] [address] Nurse Practitioner Radiation Oncology 05/29/23
--- OUTSIDE RECORDS SUMMARY | 2025-02-16 17:49 | XMS_ITS | Encounter Summary ---
Author Organization [facility] Address [address] [place] [address] Phone Care Team Providers Care Office Messenger Helper Name Role Phone Parth Munoz MD Primary Care Provider [phone] Brianna Salamanca MD Primary Care Provider Keyshawn Stoll MD Unavailable José Miguel Haines MD Unavailable Claudine May MD Unavailable Mya Cooley NP Unavailable [phone] Encounter Details Date Type Department Care Team (Latest Contact Info) Description 10/17/2021 Orders Only [facility] Scanning, Provider Social History Tobacco Use Types Packs/Day Years Used Date Smoking Tobacco: Never Assessed Comments Unknown Sex and Gender Information Value Date Recorded Sex Assigned at Not on file 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 Gender Identity Not on file Sexual [...] on filedocumented in this encounter Care Teams Office Messenger Helper Relationship Specialty Start Date End Date Parth Munoz MD PCP - General 02/09/11 05/22/22 Brianna Salamanca MD [address] [place] [address] PCP - General Family Medicine 05/23/22 Keyshawn Stoll MD [address] DIV IM PULMONARY AND CCM, [address] [place] [address] Referring Physician Pulmonary Disease 08/22/22 José Miguel Haines MD [address] DIV IM PULMONARY AND CCM, [address] [place] [address] Medical Oncologist/Aircraft Time Clerk Hematology and Oncology 08/22/22 Claudine May MD [address] [place] [address] Radiation Oncologist Radiation Oncology 10/18/22 Mya Cooley NP [address] [place] [address] Nurse Practitioner Radiation Oncology 05/29/23 documented as of this encounter
--- OUTSIDE RECORDS SUMMARY | 2025-02-16 17:49 | XMS_ITS | Encounter Summary ---
Author Organization [facility] Address [address] [place] [address] Phone Care Team Providers Care Business Representative Name Role Phone Parth Munoz MD Primary Care Provider Brianna Salamanca MD Primary Care Provider Keyshawn Stoll MD Unavailable [phone] José Miguel Haines MD Unavailable Claudine May MD Unavailable Mya Cooley NP Unavailable [phone] Encounter Details Date Type Department Care Team (Latest Contact Info) Description 03/15/2022 Orders Only [facility] Scanning, Provider Social History Tobacco Use Types Packs/Day Years Used Date Smoking Tobacco: Never Assessed Comments Unknown Sex and Gender Information Value Date Recorded Sex Assigned at Not on file 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 Gender Identity Not on file Sexual Orientation [...] on filedocumented in this encounter Care Teams Business Representative Relationship Specialty Start Date End Date Parth Munoz MD PCP - General 02/09/11 05/22/22 Brianna Salamanca MD [address] [place] [address] PCP - General Family Medicine 05/23/22 Keyshawn Stoll MD [address] DIV IM PULMONARY AND CCM, [address] [place] [address] Referring Physician Pulmonary Disease 08/22/22 José Miguel Haines MD [address] DIV IM PULMONARY AND CCM, [facility] [address] [place] [address] Medical Oncologist/Tractor Trailer Moving Van Driver Hematology and Oncology 08/22/22 Claudine May MD [address] [place] [address] Radiation Oncologist Radiation Oncology 10/18/22 Mya Cooley NP [address] [place] [address] Nurse Practitioner Radiation Oncology 05/29/23 documented as of this encounter
--- OUTSIDE RECORDS SUMMARY | 2025-02-16 17:49 | XMS_ITS | Encounter Summary ---
Author Organization [facility] Address [address] [place] [address] Phone Care Team Providers Care Crew Team Member Name Role Phone Parth Munoz MD Primary Care Provider [phone] Brianna Salamanca MD Primary Care Provider Keyshawn Stoll MD Unavailable [phone] José Miguel Haines MD Unavailable Claudine May MD Unavailable Mya Cooley NP Unavailable [phone] Encounter Details Date Type Department Care Team (Latest Contact Info) Description 08/16/2021 Orders Only [facility] Scanning, Provider Social History Tobacco Use Types Packs/Day Years Used Date Smoking Tobacco: Never Assessed Comments Unknown Sex and Gender Information Value Date Recorded Sex Assigned at Not on file 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 Gender Identity Not on file Sexual Orientation [...] on filedocumented in this encounter Care Teams Crew Team Member Relationship Specialty Start Date End Date Parth Munoz MD PCP - General 02/09/11 05/22/22 Brianna Salamanca MD [address] [place] [address] PCP - General Family Medicine 05/23/22 Keyshawn Stoll MD [address] DIV IM PULMONARY AND CCM, [address] [place] [address] Referring Physician Pulmonary Disease 08/22/22 José Miguel Haines MD [address] DIV IM PULMONARY AND CCM, [address] [place] [address] Medical Oncologist/Food Service Kitchen Supervisor Hematology and Oncology 08/22/22 Claudine May MD [address] [place] [address] Radiation Oncologist Radiation Oncology 10/18/22 Mya Cooley NP [address] [place] [address] Nurse Practitioner Radiation Oncology 05/29/23 documented as of this encounter
--- OUTSIDE RECORDS SUMMARY | 2025-02-16 17:49 | XMS_ITS | Clinical Summary ---
Author Organization [facility] Address [address] [place] [address] Care Team Providers Care Driver Operator Name Role Phone Rupinder Gómez APRN-DISTRICT AGENT Primary Care Provider [phone] Source Comments [facility],non-owned Affiliates and Associated Physician Practices is amultiple site organization consisting of ambulatory clinics and hospital sitesin [place], [place], [place] and [place]. This disclosure is being madepursuant to the Care Everywhere program and may not contain all information available regarding this patient. Last updated 17.[facility] Social History Tobacco Use Types Packs/Day Years Used Date Smoking Tobacco: Never Assessed Comments Unknown Sex and Gender Information Value Date Recorded Sex Assigned at Not on file Legal Sex Female 1:15 PM CDT Gender Identity Not on file Sexual Orientation Not on file Plan of Treatment Health Maintenance Due Date Last Done Comments BONE DENSITY TESTING 1960 COLOGUARD (AGES 45-75) - COLON CA SCREENING [...] patient's age to complete this topic Insurance [facility] Care Teams Driver Operator Relationship Specialty Start Date End Date Rupinder Gómez APRN-COLE [address] [place] [address] PCP - General Nurse Practitioner Family 12/05/23
--- OUTSIDE RECORDS SUMMARY | 2025-02-16 17:49 | XMS_ITS | Encounter Summary ---
Author Organization [facility] Address [address] [place] [address] Care Team Providers Care Parts Salesperson Name Role Phone Parth Munoz MD Primary Care Provider [phone] Brianna Salamanca MD Primary Care Provider Keyshawn Stoll MD Unavailable [phone] José Miguel Haines MD Unavailable Claudine May MD Unavailable Mya Cooley NP Unavailable Encounter Details Date Type Department Care Team (Late st Contact Info) Description 05/17/2022 Telephone [facility] Interventional Pulmonology [address] [place] [address] Katja Baumann, RN Social History Tobacco Use [...] on file 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 Gender Identity Not on file Sexual Orientation [...] on filedocumented in this encounter Care Teams Parts Salesperson Relationship Specialty Start Date End Date Parth Munoz MD PCP - General 02/09/11 05/22/22 Brianna Salamanca MD [address] [address] PCP - General Family Medicine 05/23/22 Keyshawn Stoll MD [address] DIV IM PULMONARY AND CCM, [address] [place] [address] Referring Physician Pulmonary Disease 08/22/22 José Miguel Haines MD [address] DIV IM PULMONARY AND CCM, [address] [place] [address] Medical Oncologist/Chain Mender Hematology and Oncology 08/22/22 Claudine May MD [address] [place] [address] Radiation Oncologist Radiation Oncology 10/18/22 Mya Cooley NP [address] [place] [address] Nurse Practitioner Radiation Oncology 05/29/23 documented as of this encounter
--- OUTSIDE RECORDS SUMMARY | 2025-02-16 17:49 | XMS_ITS ---
Author Organization [facility] Address [address] [place] [address] Care Team Providers Care Residential Roofer Helper Name Role Phone Brianna Salamanca MD [...]
== END 2025-02-16 15:23 | disposition home or self-care (01) ==
LOC: ANHIMG 15:24
PROVIDERS: PCP Physician Assistant; Visit Provider Internal Medicine Hematology & Oncology
DX: D72.9 Disorder of white blood cells, unspecified (principal); R91.8 Other nonspecific abnormal finding of lung field; I25.84 Coronary atherosclerosis due to calcified coronary lesion
CPT/HCPCS: 36415; 77075; 80053; 82784; 83521; 84155; 84165; 85025